=== PATIENT | male | born 1950 | race Caucasian/White ===

== ENCOUNTER 2017-05-20 18:15 | Emergency (ER) | payer MEDICAID ==
[~2017-05-20] VITALS: Ht 177.8 cm; Wt 115.7 kg
[2017-05-20] MEDS ORDERED: DOXY100C2 PO (20:01)
[2017-05-20] MEDS ORDERED: doxycycline hyclate 100mg tablet.DR PO ONE (20:05)
[2017-05-20 20:09] VITALS: BP 169/97
== END 2017-05-20 20:10 | disposition home or self-care (01) ==
LOC: ER 18:15
DX: J18.9 Pneumonia, unspecified organism (principal); I10 Essential (primary) hypertension; E11.9 Type 2 diabetes mellitus without complications; Z88.1 Allergy status to other antibiotic agents; Z88.8 Allergy status to other drugs, medicaments and biological substances
CPT/HCPCS: 71046; 99284

== ENCOUNTER 2017-06-05 19:17 | Emergency (ER) | payer MEDICARE, MEDICAID ==
[~2017-06-05] VITALS: Ht 172.7 cm; Wt 116.5 kg
[~2017-06-05 19:17] MED LIST: DOXY100C2 PO
[2017-06-05 19:33] VITALS: BP 171/124
[2017-06-05 20:07] LABS: BASOPHILS # (AUTO) 0.1 X10'3 (0-0.2); BASOPHILS % (AUTO) 0.8 % (0-1); EOSINOPHILS # (AUTO) 0.1 X10'3 (0-0.9); EOSINOPHILS % (AUTO) 2.1 % (0-6); HEMOGLOBIN 13.1 g/dl (14.0-17.9); LYMPHOCYTES # (AUTO) 1.3 X10'3 (1.1-4.8); LYMPHOCYTES % (AUTO) 19.3 % (21-51); MEAN CORPUSCULAR HEMOGLOBIN 27.9 PG (27.0-31.0); MEAN CORPUSCULAR HGB CONC 32.9 % (33.0-36.5); MEAN CORPUSCULAR VOLUME 84.9 FL (78-98); MEAN PLATELET VOLUME 9.9 FL (7.4-10.4); MONOCYTES # (AUTO) 0.4 X10'3 (0-0.9); MONOCYTES % (AUTO) 5.3 % (2-12); NEUTROPHILS # (AUTO) 4.9 X10'3 (1.8-7.7); NEUTROPHILS % (AUTO) 72.5 % (42-75); PLATELET COUNT 166 X10'3 (140-440); RED BLOOD COUNT 4.71 X10'6 (4.70-6.10); RED CELL DISTRIBUTION WIDTH 16.3 % (11.5-14.5); WHITE BLOOD COUNT 6.8 X10'3 (4.5-11.0)
[2017-06-05 20:12] LABS: INR 1.1 INR; PARTIAL THROMBOPLASTIN TIME 31 SECONDS (22-32); PROTHROMBIN TIME 11.5 SECONDS (9.0-12.0)
[2017-06-05 20:18] LABS: ALANINE AMINOTRANSFERASE 28 U/L (12-78); ALBUMIN 3.5 G/DL (3.4-5.0); ALBUMIN/GLOBULIN RATIO 0.7 (1.1-1.5); ALKALINE PHOSPHATASE 150 IU/L (46-116); ANION GAP 8 (8-16); ASPARTATE AMINO TRANSFERASE 18 U/L (10-37); BLOOD UREA NITROGEN 25 MG/DL (7-18); BUN/CREATININE RATIO 14.9 (5.4-32.0); CHLORIDE 106 MMOL/L (99-107); CREATININE 1.68 MG/DL (0.60-1.10); POTASSIUM 3.9 MMOL/L (3.5-5.1); SODIUM 145 MMOL/L (135-145); TOTAL CARBON DIOXIDE 31.1 MMOL/L (24-32); TOTAL PROTEIN 8.2 G/DL (6.4-8.2); eGFR 41 ML/MIN
[2017-06-05 20:30] LABS: GLUCOSE 181 MG/DL (70-104)
[2017-06-05] MEDS ORDERED: furosemide 10 MG/1 ML 10ml inj IV ONE (21:20)
[2017-06-05 21:46] LABS: D-DIMER 3.08 MG/L FEU (0-0.50)
== END 2017-06-05 21:33 | disposition left against medical advice (07) ==
LOC: ER 19:18
DX: R00.0 Tachycardia, unspecified (principal); R06.02 Shortness of breath; R05 Cough; N17.9 Acute kidney failure, unspecified; R60.0 Localized edema; E11.9 Type 2 diabetes mellitus without complications; I10 Essential (primary) hypertension; Z88.1 Allergy status to other antibiotic agents; Z88.8 Allergy status to other drugs, medicaments and biological substances
CPT/HCPCS: 36415; 71045; 80053; 83880; 84484; 85025; 85379; 85610; 85730; 93005; 99285

== ENCOUNTER 2017-12-06 15:01 | Inpatient (IN) | payer MEDICARE, MEDICAID ==
[~2017-12-06] VITALS: Ht 177.8 cm; Wt 118.3 kg
[2017-12-06 15:53] LABS: BASOPHILS % (AUTO) 0.2 % (0-1); EOSINOPHILS # (AUTO) 0.1 X10'3 (0-0.9); EOSINOPHILS % (AUTO) 0.8 % (0-6); LYMPHOCYTES # (AUTO) 0.7 X10'3 (1.1-4.8); LYMPHOCYTES % (AUTO) 6.2 % (21-51); MEAN CORPUSCULAR HEMOGLOBIN 28.1 PG (27.0-31.0); MEAN CORPUSCULAR HGB CONC 32.5 % (33.0-36.5); MEAN CORPUSCULAR VOLUME 86.4 FL (78-98); MEAN PLATELET VOLUME 9.4 FL (7.4-10.4); MONOCYTES # (AUTO) 0.6 X10'3 (0-0.9); MONOCYTES % (AUTO) 5.4 % (2-12); NEUTROPHILS # (AUTO) 9.9 X10'3 (1.8-7.7); NEUTROPHILS % (AUTO) 87.4 % (42-75); PLATELET COUNT 203 X10'3 (140-440); RED BLOOD COUNT 4.63 X10'6 (4.70-6.10); RED CELL DISTRIBUTION WIDTH 18.7 % (11.5-14.5); WHITE BLOOD COUNT 11.3 X10'3 (4.5-11.0)
[2017-12-06 16:07] LABS: ALANINE AMINOTRANSFERASE 20 U/L (12-78); ALBUMIN/GLOBULIN RATIO 0.6 (1.1-1.5); ALKALINE PHOSPHATASE 246 IU/L (46-116); ANION GAP 10 (8-16); ASPARTATE AMINO TRANSFERASE 26 U/L (10-37); BILIRUBIN,TOTAL 2.4 MG/DL (0.1-1.0); BLOOD UREA NITROGEN 27 MG/DL (7-18); BUN/CREATININE RATIO 16.8 (5.4-32.0); CALCIUM 8.7 MG/DL (8.5-10.1); CHLORIDE 104 MMOL/L (99-107); CREATININE 1.61 MG/DL (0.60-1.10); POTASSIUM 4.6 MMOL/L (3.5-5.1); SODIUM 141 MMOL/L (135-145); TOTAL CARBON DIOXIDE 27.4 MMOL/L (24-32); TOTAL PROTEIN 8.1 G/DL (6.4-8.2); eGFR 43 ML/MIN
[2017-12-06 16:17] LABS: GLUCOSE 136 MG/DL (70-104)
[2017-12-06 16:23] LABS: INR 1.2 INR; PARTIAL THROMBOPLASTIN TIME 33 SECONDS (22-32); PROTHROMBIN TIME 12.6 SECONDS (9.0-12.0)
[2017-12-06 16:46] LABS: PLATELET ESTIMATE NORMAL
[2017-12-06 16:47] LABS: ANISOCYTOSIS 2+
[2017-12-06 16:54] LABS: ELLIPTOCYTES FEW
[2017-12-06 16:55] LABS: SCHISTOCYTES FEW
[2017-12-06] MEDS ORDERED: normal saline 1000ML IV soln IV ONE (18:15)
[2017-12-06] MEDS ORDERED: nitroGLYCERIN 0.4mg SUBLingual tab SL PRN (18:15)
[2017-12-06] MEDS ORDERED: metoprolol tartrate 1mg/ml inj IV ONE (18:15)
[2017-12-06] MEDS ORDERED: aspirin 81mg tab.chew PO ONE (18:15)
[2017-12-06] MEDS ORDERED: vancomycin/NS 1 GM ADD-VANTAGE 250 ML IV ONE (18:20)
[2017-12-06] MEDS ORDERED: piperacillin/tazo 3.375gm/50ml 50 ML IV ONE (18:20)
[2017-12-06] MEDS ORDERED: morphine 2 MG/ML inj. syringe IV PRN ×2 (20:05)
[2017-12-06] MEDS ORDERED: ondansetron/PF 4mg/2ml inj IV PRN (20:05)
[2017-12-06] MEDS ORDERED: acetaminophen 650mg rectal suppository RC PRN (20:05)
[2017-12-06] MEDS ORDERED: diphenhydrAMINE 25mg capsule PO PRN (20:05)
[2017-12-06] MEDS ORDERED: HYDROcodone/acetaminophen 5mg/325mg tablet PO PRN (20:05)
[2017-12-06] MEDS ORDERED: magnesium hydroxide 30ml (MOM) UD suspension PO PRN (20:05)
[2017-12-06] MEDS ORDERED: diphenhydrAMINE 50 mg/ml inj IV PRN (20:05)
[2017-12-06] MEDS ORDERED: metoclopramide 5 mg/ml inj IV PRN (20:05)
[2017-12-06] MEDS ORDERED: acetaminophen 325mg tablet PO PRN ×2 (20:05)
[2017-12-06] MEDS ORDERED: HYDROcodone/acetaminophen 10/325mg tab PO PRN (20:05)
[2017-12-06] MEDS ORDERED: bisacodyl 10mg suppository rectal RC PRN (20:05)
[2017-12-06] MEDS ORDERED: mag hydrox/Alum hydrox/simeth 30ml oral suspension PO PRN (20:05)
[2017-12-06] MEDS ORDERED: heparin 10,000 units/1 ML INJ IV ONE ×2 (20:15)
[2017-12-06] MEDS: normal saline 1000ml 1,000 ML IV SCH (20:38)
[2017-12-06 20:45] LABS: HEMOGLOBIN A1C 7.2 % (4.5-6.2)
[2017-12-06 20:58] LABS: PHOSPHORUS 3.5 MG/DL (2.3-4.5)
[2017-12-06] MEDS ORDERED: temazepam 15mg capsule PO PRN (21:00)
[2017-12-06 22:51] LABS: INR 1.4 INR; PARTIAL THROMBOPLASTIN TIME 69 SECONDS (22-32); PROTHROMBIN TIME 14.3 SECONDS (9.0-12.0)
[2017-12-07] VITALS (7 sets, daily range): BP systolic 126–147; BP diastolic 82–100
[2017-12-07 03:29] LABS: BASOPHILS # (AUTO) 0.1 X10'3 (0-0.2); BASOPHILS % (AUTO) 0.6 % (0-1); EOSINOPHILS % (AUTO) 0.2 % (0-6); HEMATOCRIT 36.9 % (42.0-52.0); HEMOGLOBIN 12.1 g/dl (14.0-17.9); LYMPHOCYTES % (AUTO) 9.8 % (21-51); MEAN CORPUSCULAR HEMOGLOBIN 28.3 PG (27.0-31.0); MEAN CORPUSCULAR HGB CONC 32.8 % (33.0-36.5); MEAN CORPUSCULAR VOLUME 86.4 FL (78-98); MEAN PLATELET VOLUME 10.1 FL (7.4-10.4); MONOCYTES # (AUTO) 0.8 X10'3 (0-0.9); MONOCYTES % (AUTO) 8.1 % (2-12); NEUTROPHILS % (AUTO) 81.3 % (42-75); PLATELET COUNT 163 X10'3 (140-440); RED BLOOD COUNT 4.28 X10'6 (4.70-6.10); RED CELL DISTRIBUTION WIDTH 18.9 % (11.5-14.5); WHITE BLOOD COUNT 9.8 X10'3 (4.5-11.0)
[2017-12-07 03:38] LABS: ALANINE AMINOTRANSFERASE 20 U/L (12-78); ALBUMIN 2.6 G/DL (3.4-5.0); ALBUMIN/GLOBULIN RATIO 0.6 (1.1-1.5); ALKALINE PHOSPHATASE 198 IU/L (46-116); ANION GAP 8 (8-16); ASPARTATE AMINO TRANSFERASE 29 U/L (10-37); BILIRUBIN,TOTAL 2.3 MG/DL (0.1-1.0); BLOOD UREA NITROGEN 32 MG/DL (7-18); BUN/CREATININE RATIO 18.5 (5.4-32.0); CALCIUM 8.4 MG/DL (8.5-10.1); CHLORIDE 106 MMOL/L (99-107); CREATININE 1.73 MG/DL (0.60-1.10); POTASSIUM 4.5 MMOL/L (3.5-5.1); SODIUM 141 MMOL/L (135-145); TOTAL CARBON DIOXIDE 26.7 MMOL/L (24-32); TOTAL PROTEIN 7.1 G/DL (6.4-8.2); eGFR 40 ML/MIN
[2017-12-07 03:41] LABS: CHOL/HDL RATIO 2.9 (0.00-4.99); CHOLESTEROL 97 MG/DL (0-200); HDL CHOLESTEROL 34 MG/DL (35-60); LDL CHOLESTEROL 57 MG/DL (50-100); TRIGLYCERIDES 52 MG/DL (20-135)
[2017-12-07 03:46] LABS: GLUCOSE 73 MG/DL (70-104)
[2017-12-07 04:01] LABS: ANISOCYTOSIS 2+; ELLIPTOCYTES FEW; HYPOCHROMASIA 1+; PLATELET ESTIMATE NORMAL
[2017-12-07] MEDS ORDERED: heparin 10,000 units/1 ML INJ IV PRN (04:30)
[2017-12-07] MEDS: normal saline 1000ml 1,000 ML IV SCH ×2 (06:03→07:31)
[2017-12-07] MEDS ORDERED: MESSAGE TO PHARMACY PO ONE (06:45)
[2017-12-07] MEDS ORDERED: dextrose ORAL solution 15 GM/59 ML bottle PO PRN ×2 (06:45)
[2017-12-07] MEDS ORDERED: insulin Lispro (HumaLOG) vial - multi-dose SQ SCH (06:45)
[2017-12-07] MEDS ORDERED: dextrose 50%-water 50ml dispensing syringe IV PRN ×2 (06:45)
[2017-12-07] MEDS ORDERED: glucagon, human recombinant 1mg kit SUBCUT PRN (06:45)
[2017-12-07] MEDS: docusate sod 100mg capsule PO SCH ×2 (07:31→20:55)
[2017-12-07] MEDS ORDERED: furosemide 40mg/4ml inj IV ONE (08:45)
[2017-12-07] MEDS: carVEDilol 3.125mg tablet PO SCH ×2 (11:42→20:55)
[2017-12-07] MEDS: lisinopril 5mg tablet PO SCH (11:42)
[2017-12-07] MEDS ORDERED: LISI10TA4 PO (11:56)
[2017-12-07] MEDS ORDERED: FURO20TA4 PO (11:56)
[2017-12-07] MEDS ORDERED: LANTUS SUBCUT (11:56)
[2017-12-07] MEDS: furosemide 40mg/4ml inj IV SCH (16:51)
[2017-12-07] MEDS ORDERED: insulin glargine (Lantus) pen - multi-dose SQ SCH (21:00)
[2017-12-08] MEDS: furosemide 40mg/4ml inj IV SCH ×2 (00:43→08:10)
[2017-12-08 03:00] VITALS: BP 136/88
[2017-12-08 06:28] LABS: BASOPHILS % (AUTO) 0.6 % (0-1); EOSINOPHILS # (AUTO) 0.1 X10'3 (0-0.9); EOSINOPHILS % (AUTO) 1.4 % (0-6); HEMATOCRIT 37.4 % (42.0-52.0); HEMOGLOBIN 12.4 g/dl (14.0-17.9); LYMPHOCYTES # (AUTO) 0.9 X10'3 (1.1-4.8); LYMPHOCYTES % (AUTO) 11.5 % (21-51); MEAN CORPUSCULAR HEMOGLOBIN 28.3 PG (27.0-31.0); MEAN CORPUSCULAR HGB CONC 33.1 % (33.0-36.5); MEAN CORPUSCULAR VOLUME 85.7 FL (78-98); MEAN PLATELET VOLUME 10.1 FL (7.4-10.4); MONOCYTES # (AUTO) 0.7 X10'3 (0-0.9); MONOCYTES % (AUTO) 9.3 % (2-12); NEUTROPHILS # (AUTO) 6.2 X10'3 (1.8-7.7); NEUTROPHILS % (AUTO) 77.2 % (42-75); PLATELET COUNT 198 X10'3 (140-440); RED BLOOD COUNT 4.37 X10'6 (4.70-6.10); RED CELL DISTRIBUTION WIDTH 18.5 % (11.5-14.5)
[2017-12-08 06:31] LABS: ALANINE AMINOTRANSFERASE 28 U/L (12-78); ALBUMIN 2.6 G/DL (3.4-5.0); ALBUMIN/GLOBULIN RATIO 0.6 (1.1-1.5); ALKALINE PHOSPHATASE 185 IU/L (46-116); ANION GAP 9 (8-16); ASPARTATE AMINO TRANSFERASE 29 U/L (10-37); BILIRUBIN,TOTAL 1.7 MG/DL (0.1-1.0); BLOOD UREA NITROGEN 43 MG/DL (7-18); BUN/CREATININE RATIO 22.4 (5.4-32.0); CALCIUM 8.5 MG/DL (8.5-10.1); CHLORIDE 103 MMOL/L (99-107); CREATININE 1.92 MG/DL (0.60-1.10); POTASSIUM 4.6 MMOL/L (3.5-5.1); SODIUM 139 MMOL/L (135-145); TOTAL CARBON DIOXIDE 27.2 MMOL/L (24-32); TOTAL PROTEIN 7.2 G/DL (6.4-8.2); eGFR 35 ML/MIN
[2017-12-08 06:39] LABS: GLUCOSE 189 MG/DL (70-104)
[2017-12-08 07:00] VITALS: BP 123/83
[2017-12-08] MEDS: lisinopril 5mg tablet PO SCH (08:00)
[2017-12-08] MEDS ORDERED: carvedilol 6.25mg tablet PO SCH (08:00)
[2017-12-08] MEDS: docusate sod 100mg capsule PO SCH (08:00)
[2017-12-08] MEDS ORDERED: FURO20TA4 PO (08:52)
[2017-12-08] MEDS ORDERED: CARV6.253 PO (08:52)
[2017-12-08 11:00] VITALS: BP 125/87
== END 2017-12-08 12:19 | disposition home or self-care (01) | DRG 682 ==
LOC: ER 15:02 → ED HOLD 20:03 → EDBEDREQ 12-07 00:06 → PCU 3S 12-07 00:30
PROVIDERS: ADMIT Family Medicine; ATTEND Internal Medicine
DX: N17.9 Acute kidney failure, unspecified (principal); I50.43 Acute on chronic combined systolic (congestive) and diastolic (congestive) heart failure; I13.0 Hypertensive heart and chronic kidney disease with heart failure and stage 1 through stage 4 chronic kidney disease, or unspecified chronic kidney disease; L97.829 Non-pressure chronic ulcer of other part of left lower leg with unspecified severity; L97.819 Non-pressure chronic ulcer of other part of right lower leg with unspecified severity; J44.9 Chronic obstructive pulmonary disease, unspecified; N18.3 Chronic kidney disease, stage 3 (moderate); E11.22 Type 2 diabetes mellitus with diabetic chronic kidney disease; E11.51 Type 2 diabetes mellitus with diabetic peripheral angiopathy without gangrene; E11.65 Type 2 diabetes mellitus with hyperglycemia; L30.8 Other specified dermatitis; Z88.8 Allergy status to other drugs, medicaments and biological substances; Z79.4 Long term (current) use of insulin; Z79.899 Other long term (current) drug therapy; Z87.01 Personal history of pneumonia (recurrent)
CPT/HCPCS: 36415; 71045; 80053; 80061; 82948; 83036; 83605; 83735; 83880; 84100; 84145; 84484; 85025; 85610; 85730; 87040; 87070; 93306; 93922; 96365; 96368; 96375; 99285; A4649; A6212; A6213; A6446; A6449; J1644; J1815; J1940; J2543; J3370; J3490; J7030

== ENCOUNTER 2018-01-02 18:14 | Inpatient (IN) | payer MEDICARE, MEDICAID ==
[~2018-01-02] VITALS: Ht 175.3 cm; Wt 110.0 kg
[2018-01-02] MEDS: vancomycin/NS 1 GM ADD-VANTAGE 250 ML IV SCH (01:00)
[~2018-01-02 18:14] MED LIST changes: +CARV6.253 PO; -DOXY100C2 PO; +FURO20TA4 PO; +LANTUS SUBCUT; +LISI10TA4 PO
[2018-01-02] MEDS ORDERED: ASPI-1265 PO (20:40)
[2018-01-02] MEDS ORDERED: temazepam 15mg capsule PO PRN (21:00)
[2018-01-02] MEDS ORDERED: vancomycin/NS 1 GM ADD-VANTAGE 250 ML IV ONE (22:45)
[2018-01-02] MEDS ORDERED: NORMAL SALINE IV ONE (22:45)
[2018-01-02] MEDS ORDERED: GENTAMICIN IV ONE (22:45)
[2018-01-02] MEDS ORDERED: HYDROmorphone 1 mg/ml syringe IV PRN ×2 (23:10)
[2018-01-02] MEDS ORDERED: morphine 2 MG/ML inj. syringe IV PRN ×2 (23:10)
[2018-01-02] MEDS ORDERED: mag hydrox/Alum hydrox/simeth 30ml oral suspension PO PRN (23:10)
[2018-01-02] MEDS ORDERED: diphenhydrAMINE 50 mg/ml inj IV PRN (23:10)
[2018-01-02] MEDS ORDERED: HYDROcodone/acetaminophen 10/325mg tab PO PRN (23:10)
[2018-01-02] MEDS ORDERED: magnesium hydroxide 30ml (MOM) UD suspension PO PRN (23:10)
[2018-01-02] MEDS ORDERED: diphenhydrAMINE 25mg capsule PO PRN (23:10)
[2018-01-02] MEDS ORDERED: acetaminophen 325mg tablet PO PRN ×2 (23:10)
[2018-01-02] MEDS ORDERED: bisacodyl 10mg suppository rectal RC PRN (23:10)
[2018-01-02] MEDS ORDERED: ondansetron/PF 4mg/2ml inj IV PRN (23:10)
[2018-01-02] MEDS ORDERED: HYDROcodone/acetaminophen 5mg/325mg tablet PO PRN (23:10)
[2018-01-02] MEDS ORDERED: metoclopramide 5 mg/ml inj IV PRN (23:10)
[2018-01-02 23:12] LABS: BASOPHILS # (AUTO) 0.2 X10'3 (0-0.2); BASOPHILS % (AUTO) 1.4 % (0-1); EOSINOPHILS # (AUTO) 0.3 X10'3 (0-0.9); EOSINOPHILS % (AUTO) 2.5 % (0-6); HEMATOCRIT 39.9 % (42.0-52.0); HEMOGLOBIN 12.8 g/dl (14.0-17.9); INR 1.1 INR; LYMPHOCYTES # (AUTO) 1.3 X10'3 (1.1-4.8); LYMPHOCYTES % (AUTO) 10.3 % (21-51); MEAN CORPUSCULAR HEMOGLOBIN 27.9 PG (27.0-31.0); MEAN CORPUSCULAR HGB CONC 32.1 % (33.0-36.5); MEAN CORPUSCULAR VOLUME 86.9 FL (78-98); MEAN PLATELET VOLUME 10.1 FL (7.4-10.4); MONOCYTES # (AUTO) 0.6 X10'3 (0-0.9); MONOCYTES % (AUTO) 4.7 % (2-12); NEUTROPHILS % (AUTO) 81.1 % (42-75); PLATELET COUNT 354 X10'3 (140-440); PROTHROMBIN TIME 11.8 SECONDS (9.0-12.0); RED BLOOD COUNT 4.59 X10'6 (4.70-6.10); WHITE BLOOD COUNT 12.3 X10'3 (4.5-11.0)
[2018-01-02 23:13] LABS: PARTIAL THROMBOPLASTIN TIME 33 SECONDS (22-32)
[2018-01-02 23:14] LABS: ALANINE AMINOTRANSFERASE 21 U/L (12-78); ALBUMIN 2.2 G/DL (3.4-5.0); ALBUMIN/GLOBULIN RATIO 0.3 (1.1-1.5); ALKALINE PHOSPHATASE 355 IU/L (46-116); ANION GAP 5 (8-16); ASPARTATE AMINO TRANSFERASE 25 U/L (10-37); BILIRUBIN,TOTAL 2.3 MG/DL (0.1-1.0); BLOOD UREA NITROGEN 46 MG/DL (7-18); BUN/CREATININE RATIO 30.1 (5.4-32.0); CALCIUM 8.7 MG/DL (8.5-10.1); CHLORIDE 96 MMOL/L (99-107); CREATININE 1.53 MG/DL (0.60-1.10); POTASSIUM 4.4 MMOL/L (3.5-5.1); SODIUM 137 MMOL/L (135-145); TOTAL CARBON DIOXIDE 35.9 MMOL/L (24-32); TOTAL PROTEIN 8.7 G/DL (6.4-8.2); eGFR 46 ML/MIN
[2018-01-02] MEDS ORDERED: glucagon, human recombinant 1mg kit SUBCUT PRN (23:15)
[2018-01-02] MEDS ORDERED: dextrose ORAL solution 15 GM/59 ML bottle PO PRN ×2 (23:15)
[2018-01-02] MEDS ORDERED: MESSAGE TO PHARMACY PO ONE (23:15)
[2018-01-02] MEDS ORDERED: dextrose 50%-water 50ml dispensing syringe IV PRN ×2 (23:15)
[2018-01-02 23:17] LABS: GLUCOSE 65 MG/DL (70-104)
[2018-01-02 23:38] LABS: MAGNESIUM 2.5 MG/DL (1.5-2.4); PHOSPHORUS 3.4 MG/DL (2.3-4.5)
[2018-01-02] MEDS ORDERED: vancomycin/NS 1 GM ADD-VANTAGE 250 ML IV SCH (23:50)
[2018-01-03] MEDS ORDERED: [UNRECOGNIZED DRUG - OTHER] IV SCH ×2
[2018-01-03] MEDS ORDERED: VANCOMYCIN IV SCH ×2
[2018-01-03] MEDS ORDERED: SODIUM CHLORIDE IV SCH ×2
[2018-01-03] MEDS: vancomycin/NS 1 GM ADD-VANTAGE 250 ML IV SCH (00:44)
[2018-01-03 01:00] VITALS: BP 134/73
[2018-01-03] MEDS: clindamycin 600mg/D5W 50ml 50 ML IV SCH ×4 (03:12→23:30)
[2018-01-03 07:18] LABS: BASOPHILS % (AUTO) 0.3 % (0-1); EOSINOPHILS # (AUTO) 0.2 X10'3 (0-0.9); EOSINOPHILS % (AUTO) 1.5 % (0-6); HEMATOCRIT 36.8 % (42.0-52.0); LYMPHOCYTES # (AUTO) 1.1 X10'3 (1.1-4.8); LYMPHOCYTES % (AUTO) 9.5 % (21-51); MEAN CORPUSCULAR HEMOGLOBIN 28.1 PG (27.0-31.0); MEAN CORPUSCULAR HGB CONC 32.6 % (33.0-36.5); MEAN CORPUSCULAR VOLUME 86.4 FL (78-98); MEAN PLATELET VOLUME 9.5 FL (7.4-10.4); MONOCYTES # (AUTO) 0.5 X10'3 (0-0.9); MONOCYTES % (AUTO) 4.8 % (2-12); NEUTROPHILS # (AUTO) 9.4 X10'3 (1.8-7.7); NEUTROPHILS % (AUTO) 83.9 % (42-75); PLATELET COUNT 287 X10'3 (140-440); RED BLOOD COUNT 4.26 X10'6 (4.70-6.10); WHITE BLOOD COUNT 11.2 X10'3 (4.5-11.0)
[2018-01-03 07:44] LABS: ALANINE AMINOTRANSFERASE 15 U/L (12-78); ALBUMIN 1.8 G/DL (3.4-5.0); ALBUMIN/GLOBULIN RATIO 0.3 (1.1-1.5); ALKALINE PHOSPHATASE 299 IU/L (46-116); ANION GAP 3 (8-16); ASPARTATE AMINO TRANSFERASE 23 U/L (10-37); BILIRUBIN,TOTAL 2.3 MG/DL (0.1-1.0); BLOOD UREA NITROGEN 45 MG/DL (7-18); BUN/CREATININE RATIO 27.3 (5.4-32.0); CALCIUM 8.4 MG/DL (8.5-10.1); CHLORIDE 98 MMOL/L (99-107); CHOL/HDL RATIO 5.8 (0.00-4.99); CHOLESTEROL 87 MG/DL (0-200); CREATININE 1.65 MG/DL (0.60-1.10); HDL CHOLESTEROL 15 MG/DL (35-60); LDL CHOLESTEROL 53 MG/DL (50-100); POTASSIUM 4.5 MMOL/L (3.5-5.1); SODIUM 136 MMOL/L (135-145); TOTAL CARBON DIOXIDE 35.3 MMOL/L (24-32); TOTAL PROTEIN 7.4 G/DL (6.4-8.2); TRIGLYCERIDES 100 MG/DL (20-135); eGFR 42 ML/MIN
[2018-01-03 07:48] LABS: GLUCOSE 175 MG/DL (70-104)
[2018-01-03] MEDS ORDERED: furosemide 10 MG/1 ML 10ml inj IV SCH (08:00)
[2018-01-03] MEDS ORDERED: vancomycin/NS 1 GM ADD-VANTAGE 250 ML IV SCH (08:00)
[2018-01-03] MEDS: carvedilol 6.25mg tablet PO SCH ×2 (08:57→20:47)
[2018-01-03] MEDS: famotidine 20mg tablet PO SCH ×2 (08:58→20:00)
[2018-01-03] MEDS: lisinopril 10 MG tablet PO SCH (08:59)
[2018-01-03] MEDS: aspirin 81mg tab.chew PO SCH (09:00)
[2018-01-03] MEDS: docusate sod 100mg capsule PO SCH ×2 (09:00→20:00)
[2018-01-03 11:00] VITALS: BP 97/62
[2018-01-03] MEDS: insulin Lispro (HumaLOG) vial - multi-dose SQ SCH ×2 (13:28→19:04)
[2018-01-03 20:00] VITALS: BP 110/66
[2018-01-03] MEDS: lactobacillus rhamnosus 10,000 MMU CELLS/CAPSULE PO SCH (20:46)
[2018-01-04] VITALS: BP 118/52
[2018-01-04 07:22] LABS: BASOPHILS # (AUTO) 0.1 X10'3 (0-0.2); BASOPHILS % (AUTO) 0.8 % (0-1); EOSINOPHILS # (AUTO) 0.1 X10'3 (0-0.9); EOSINOPHILS % (AUTO) 1.2 % (0-6); HEMATOCRIT 36.9 % (42.0-52.0); LYMPHOCYTES # (AUTO) 1.2 X10'3 (1.1-4.8); LYMPHOCYTES % (AUTO) 10.7 % (21-51); MEAN CORPUSCULAR HEMOGLOBIN 28.1 PG (27.0-31.0); MEAN CORPUSCULAR HGB CONC 32.5 % (33.0-36.5); MEAN CORPUSCULAR VOLUME 86.5 FL (78-98); MEAN PLATELET VOLUME 9.3 FL (7.4-10.4); MONOCYTES # (AUTO) 0.9 X10'3 (0-0.9); MONOCYTES % (AUTO) 7.7 % (2-12); NEUTROPHILS % (AUTO) 79.6 % (42-75); PLATELET COUNT 332 X10'3 (140-440); RED BLOOD COUNT 4.27 X10'6 (4.70-6.10); WHITE BLOOD COUNT 11.3 X10'3 (4.5-11.0)
[2018-01-04 07:42] LABS: ALANINE AMINOTRANSFERASE 16 U/L (12-78); ALBUMIN/GLOBULIN RATIO 0.4 (1.1-1.5); ALKALINE PHOSPHATASE 304 IU/L (46-116); ANION GAP 4 (8-16); ASPARTATE AMINO TRANSFERASE 25 U/L (10-37); BILIRUBIN,TOTAL 1.8 MG/DL (0.1-1.0); BLOOD UREA NITROGEN 47 MG/DL (7-18); CALCIUM 8.4 MG/DL (8.5-10.1); CHLORIDE 98 MMOL/L (99-107); CREATININE 1.68 MG/DL (0.60-1.10); POTASSIUM 4.6 MMOL/L (3.5-5.1); SODIUM 136 MMOL/L (135-145); TOTAL CARBON DIOXIDE 34.3 MMOL/L (24-32); TOTAL PROTEIN 7.6 G/DL (6.4-8.2); eGFR 41 ML/MIN
[2018-01-04 07:48] LABS: GLUCOSE 71 MG/DL (70-104)
[2018-01-04] MEDS: famotidine 20mg tablet PO SCH (08:01)
[2018-01-04] MEDS: docusate sod 100mg capsule PO SCH (08:01)
[2018-01-04] MEDS: lactobacillus rhamnosus 10,000 MMU CELLS/CAPSULE PO SCH (08:01)
[2018-01-04] MEDS: carvedilol 6.25mg tablet PO SCH (08:01)
[2018-01-04] MEDS: aspirin 81mg tab.chew PO SCH (08:01)
[2018-01-04] MEDS: lisinopril 10 MG tablet PO SCH (08:03)
[2018-01-04 08:59] VITALS: BP 112/73
[2018-01-04] MEDS ORDERED: clindamycin 150mg capsule PO SCH (09:00)
[2018-01-04] MEDS ORDERED: furosemide 20MG tablet PO SCH (09:00)
[2018-01-04] MEDS ORDERED: furosemide 20MG tablet PO ONE (09:10)
[2018-01-04 11:48] VITALS: BP 120/68
[2018-01-04 13:00] VITALS: BP 120/80
[2018-01-04] MEDS ORDERED: CLE150C PO (13:07)
[2018-01-04] MEDS ORDERED: LACT1CAP26 PO (13:07)
[2018-01-04] MEDS ORDERED: piperacillin/tazo 3.375gm/50ml 50 ML IV SCH ×2 (14:00)
[2018-01-05] MEDS ORDERED: VANCOMYCIN LEVEL IV NR (03:30)
[2018-01-05] MEDS ORDERED: furosemide 20MG tablet PO SCH (08:00)
[2018-01-05] MEDS ORDERED: CLIN300C54 PO (22:12)
== END 2018-01-04 19:02 | disposition home or self-care (01) | DRG 299 ==
LOC: ER 18:15 → ED HOLD 23:08 → SUR 3N 01-03 01:06
PROVIDERS: ADMIT Family Medicine; ATTEND Family Medicine
DX: E11.52 Type 2 diabetes mellitus with diabetic peripheral angiopathy with gangrene (principal); I50.23 Acute on chronic systolic (congestive) heart failure; L03.115 Cellulitis of right lower limb; N17.9 Acute kidney failure, unspecified; I13.0 Hypertensive heart and chronic kidney disease with heart failure and stage 1 through stage 4 chronic kidney disease, or unspecified chronic kidney disease; L03.116 Cellulitis of left lower limb; E11.649 Type 2 diabetes mellitus with hypoglycemia without coma; A49.01 Methicillin susceptible Staphylococcus aureus infection, unspecified site; E11.22 Type 2 diabetes mellitus with diabetic chronic kidney disease; N18.3 Chronic kidney disease, stage 3 (moderate); Z88.1 Allergy status to other antibiotic agents; Z88.8 Allergy status to other drugs, medicaments and biological substances; Z79.899 Other long term (current) drug therapy; Z79.4 Long term (current) use of insulin; Z79.82 Long term (current) use of aspirin; Z87.01 Personal history of pneumonia (recurrent)
CPT/HCPCS: 36415; 80053; 80061; 82948; 83605; 83735; 83880; 84100; 84145; 85025; 85610; 85730; 87040; 99285; J1580; J1940; J2543; J3370; J3490; J7030

== ENCOUNTER 2018-01-11 09:04 | Day surgery (SDC) | payer MEDICARE, MEDICAID ==
[~2018-01-11 09:04] MED LIST changes: +ASPI-1265 PO; +CLIN300C54 PO; +LACT1CAP26 PO
== END 2018-01-11 13:15 | disposition home or self-care (01) ==
LOC: WOUND CARE 09:04
PROVIDERS: ATTEND Surgery
DX: E11.621 Type 2 diabetes mellitus with foot ulcer (principal); L97.412 Non-pressure chronic ulcer of right heel and midfoot with fat layer exposed; E11.622 Type 2 diabetes mellitus with other skin ulcer; I83.012 Varicose veins of right lower extremity with ulcer of calf; I83.022 Varicose veins of left lower extremity with ulcer of calf; L97.212 Non-pressure chronic ulcer of right calf with fat layer exposed; L97.222 Non-pressure chronic ulcer of left calf with fat layer exposed; L97.811 Non-pressure chronic ulcer of other part of right lower leg limited to breakdown of skin; E11.40 Type 2 diabetes mellitus with diabetic neuropathy, unspecified; E11.65 Type 2 diabetes mellitus with hyperglycemia; E11.52 Type 2 diabetes mellitus with diabetic peripheral angiopathy with gangrene; E11.22 Type 2 diabetes mellitus with diabetic chronic kidney disease; I13.0 Hypertensive heart and chronic kidney disease with heart failure and stage 1 through stage 4 chronic kidney disease, or unspecified chronic kidney disease; I50.43 Acute on chronic combined systolic (congestive) and diastolic (congestive) heart failure; N18.3 Chronic kidney disease, stage 3 (moderate); E11.649 Type 2 diabetes mellitus with hypoglycemia without coma; J44.9 Chronic obstructive pulmonary disease, unspecified; F03.90 Unspecified dementia, unspecified severity, without behavioral disturbance, psychotic disturbance, mood disturbance, and anxiety; Z79.4 Long term (current) use of insulin; Z79.82 Long term (current) use of aspirin; Z79.1 Long term (current) use of non-steroidal anti-inflammatories (NSAID); Z79.899 Other long term (current) drug therapy; Z87.01 Personal history of pneumonia (recurrent)
CPT/HCPCS: 11042; 11045; 87070; 87075; 87076; 87077; 87102; 87176; 87186; 97597; 97606; A6021; A6446; A6250

== ENCOUNTER 2018-01-15 09:31 | Day surgery (SDC) | payer MEDICARE, MEDICAID | END 2018-01-15 14:25 | disposition home or self-care (01) | LOC: WOUND CARE 09:31 | PROVIDERS: ATTEND Surgery | DX: E11.621 Type 2 diabetes mellitus with foot ulcer (principal); L97.412 Non-pressure chronic ulcer of right heel and midfoot with fat layer exposed; E11.622 Type 2 diabetes mellitus with other skin ulcer; I83.012 Varicose veins of right lower extremity with ulcer of calf; I83.022 Varicose veins of left lower extremity with ulcer of calf; L97.212 Non-pressure chronic ulcer of right calf with fat layer exposed; L97.222 Non-pressure chronic ulcer of left calf with fat layer exposed; L97.811 Non-pressure chronic ulcer of other part of right lower leg limited to breakdown of skin; E11.40 Type 2 diabetes mellitus with diabetic neuropathy, unspecified; E11.65 Type 2 diabetes mellitus with hyperglycemia; E11.52 Type 2 diabetes mellitus with diabetic peripheral angiopathy with gangrene; E11.22 Type 2 diabetes mellitus with diabetic chronic kidney disease; I13.0 Hypertensive heart and chronic kidney disease with heart failure and stage 1 through stage 4 chronic kidney disease, or unspecified chronic kidney disease; I50.43 Acute on chronic combined systolic (congestive) and diastolic (congestive) heart failure; N18.3 Chronic kidney disease, stage 3 (moderate); E11.649 Type 2 diabetes mellitus with hypoglycemia without coma; J44.9 Chronic obstructive pulmonary disease, unspecified; F03.90 Unspecified dementia, unspecified severity, without behavioral disturbance, psychotic disturbance, mood disturbance, and anxiety; Z79.4 Long term (current) use of insulin; Z79.82 Long term (current) use of aspirin; Z79.1 Long term (current) use of non-steroidal anti-inflammatories (NSAID); Z79.899 Other long term (current) drug therapy; Z87.01 Personal history of pneumonia (recurrent) | CPT/HCPCS: 11043; 11046; 36416; 82948; 93922; 93926; 97606; A6021; A6206; A6446; A4456 ==

== ENCOUNTER 2018-01-19 14:40 | Outpatient (CLI) | payer MEDICARE, MEDICAID | END 2018-01-19 23:59 | disposition home or self-care (01) | LOC: RAD 14:40 | PROVIDERS: ATTEND Surgery | DX: E11.621 Type 2 diabetes mellitus with foot ulcer (principal); L97.412 Non-pressure chronic ulcer of right heel and midfoot with fat layer exposed; E11.622 Type 2 diabetes mellitus with other skin ulcer; I83.012 Varicose veins of right lower extremity with ulcer of calf; I83.022 Varicose veins of left lower extremity with ulcer of calf; L97.212 Non-pressure chronic ulcer of right calf with fat layer exposed; L97.222 Non-pressure chronic ulcer of left calf with fat layer exposed; L97.811 Non-pressure chronic ulcer of other part of right lower leg limited to breakdown of skin; E11.40 Type 2 diabetes mellitus with diabetic neuropathy, unspecified; E11.65 Type 2 diabetes mellitus with hyperglycemia; E11.52 Type 2 diabetes mellitus with diabetic peripheral angiopathy with gangrene; E11.22 Type 2 diabetes mellitus with diabetic chronic kidney disease; I13.0 Hypertensive heart and chronic kidney disease with heart failure and stage 1 through stage 4 chronic kidney disease, or unspecified chronic kidney disease; I50.43 Acute on chronic combined systolic (congestive) and diastolic (congestive) heart failure; N18.3 Chronic kidney disease, stage 3 (moderate); E11.649 Type 2 diabetes mellitus with hypoglycemia without coma; J44.9 Chronic obstructive pulmonary disease, unspecified; F03.90 Unspecified dementia, unspecified severity, without behavioral disturbance, psychotic disturbance, mood disturbance, and anxiety; Z79.4 Long term (current) use of insulin; Z79.82 Long term (current) use of aspirin; Z79.1 Long term (current) use of non-steroidal anti-inflammatories (NSAID); Z79.899 Other long term (current) drug therapy; Z87.01 Personal history of pneumonia (recurrent) | CPT/HCPCS: 73718 ==

== ENCOUNTER 2018-01-22 09:35 | Day surgery (SDC) | payer MEDICARE, MEDICAID | END 2018-01-22 13:58 | disposition home or self-care (01) | LOC: WOUND CARE 09:35 | PROVIDERS: ATTEND Surgery | DX: E11.621 Type 2 diabetes mellitus with foot ulcer (principal); L97.412 Non-pressure chronic ulcer of right heel and midfoot with fat layer exposed; E11.622 Type 2 diabetes mellitus with other skin ulcer; I83.012 Varicose veins of right lower extremity with ulcer of calf; I83.022 Varicose veins of left lower extremity with ulcer of calf; L97.212 Non-pressure chronic ulcer of right calf with fat layer exposed; L97.222 Non-pressure chronic ulcer of left calf with fat layer exposed; L97.811 Non-pressure chronic ulcer of other part of right lower leg limited to breakdown of skin; E11.40 Type 2 diabetes mellitus with diabetic neuropathy, unspecified; E11.65 Type 2 diabetes mellitus with hyperglycemia; E11.52 Type 2 diabetes mellitus with diabetic peripheral angiopathy with gangrene; E11.22 Type 2 diabetes mellitus with diabetic chronic kidney disease; I13.0 Hypertensive heart and chronic kidney disease with heart failure and stage 1 through stage 4 chronic kidney disease, or unspecified chronic kidney disease; I50.43 Acute on chronic combined systolic (congestive) and diastolic (congestive) heart failure; N18.3 Chronic kidney disease, stage 3 (moderate); E11.649 Type 2 diabetes mellitus with hypoglycemia without coma; J44.9 Chronic obstructive pulmonary disease, unspecified; F03.90 Unspecified dementia, unspecified severity, without behavioral disturbance, psychotic disturbance, mood disturbance, and anxiety; Z79.4 Long term (current) use of insulin; Z79.82 Long term (current) use of aspirin; Z79.1 Long term (current) use of non-steroidal anti-inflammatories (NSAID); Z79.899 Other long term (current) drug therapy; Z87.01 Personal history of pneumonia (recurrent) | CPT/HCPCS: 97606; A6021; A6206; A6446 ==

== ENCOUNTER 2018-01-26 09:10 | Day surgery (SDC) | payer MEDICARE, MEDICAID ==
[2018-01-26] MEDS ORDERED: AMOX-422 PO (14:36)
== END 2018-01-26 12:25 | disposition home or self-care (01) ==
LOC: WOUND CARE 09:10
PROVIDERS: ATTEND Surgery
DX: E11.621 Type 2 diabetes mellitus with foot ulcer (principal); L97.413 Non-pressure chronic ulcer of right heel and midfoot with necrosis of muscle; E11.622 Type 2 diabetes mellitus with other skin ulcer; I83.012 Varicose veins of right lower extremity with ulcer of calf; I83.022 Varicose veins of left lower extremity with ulcer of calf; L97.212 Non-pressure chronic ulcer of right calf with fat layer exposed; L97.221 Non-pressure chronic ulcer of left calf limited to breakdown of skin; L97.811 Non-pressure chronic ulcer of other part of right lower leg limited to breakdown of skin; E11.40 Type 2 diabetes mellitus with diabetic neuropathy, unspecified; E11.65 Type 2 diabetes mellitus with hyperglycemia; E11.52 Type 2 diabetes mellitus with diabetic peripheral angiopathy with gangrene; E11.22 Type 2 diabetes mellitus with diabetic chronic kidney disease; I13.0 Hypertensive heart and chronic kidney disease with heart failure and stage 1 through stage 4 chronic kidney disease, or unspecified chronic kidney disease; I50.43 Acute on chronic combined systolic (congestive) and diastolic (congestive) heart failure; N18.3 Chronic kidney disease, stage 3 (moderate); E11.649 Type 2 diabetes mellitus with hypoglycemia without coma; J44.9 Chronic obstructive pulmonary disease, unspecified; F03.90 Unspecified dementia, unspecified severity, without behavioral disturbance, psychotic disturbance, mood disturbance, and anxiety; Z79.4 Long term (current) use of insulin; Z79.82 Long term (current) use of aspirin; Z79.1 Long term (current) use of non-steroidal anti-inflammatories (NSAID); Z79.899 Other long term (current) drug therapy; Z87.01 Personal history of pneumonia (recurrent)
CPT/HCPCS: 11043; 11046; 36415; 36416; 82948; 85651; 86140; 97605; A6223; A4456; A6021; A6446

== ENCOUNTER 2018-01-29 09:42 | Outpatient (CLI) | payer MEDICARE, MEDICAID ==
[~2018-01-29 09:42] MED LIST changes: +AMOX-422 PO
== END 2018-01-29 13:47 | disposition home or self-care (01) ==
LOC: WOUND CARE 09:42
PROVIDERS: ATTEND Surgery
DX: E11.621 Type 2 diabetes mellitus with foot ulcer (principal); L97.413 Non-pressure chronic ulcer of right heel and midfoot with necrosis of muscle; E11.622 Type 2 diabetes mellitus with other skin ulcer; I83.012 Varicose veins of right lower extremity with ulcer of calf; I83.022 Varicose veins of left lower extremity with ulcer of calf; L97.212 Non-pressure chronic ulcer of right calf with fat layer exposed; L97.221 Non-pressure chronic ulcer of left calf limited to breakdown of skin; L97.811 Non-pressure chronic ulcer of other part of right lower leg limited to breakdown of skin; E11.40 Type 2 diabetes mellitus with diabetic neuropathy, unspecified; E11.65 Type 2 diabetes mellitus with hyperglycemia; E11.52 Type 2 diabetes mellitus with diabetic peripheral angiopathy with gangrene; E11.22 Type 2 diabetes mellitus with diabetic chronic kidney disease; I13.0 Hypertensive heart and chronic kidney disease with heart failure and stage 1 through stage 4 chronic kidney disease, or unspecified chronic kidney disease; I50.43 Acute on chronic combined systolic (congestive) and diastolic (congestive) heart failure; N18.3 Chronic kidney disease, stage 3 (moderate); E11.649 Type 2 diabetes mellitus with hypoglycemia without coma; J44.9 Chronic obstructive pulmonary disease, unspecified; F03.90 Unspecified dementia, unspecified severity, without behavioral disturbance, psychotic disturbance, mood disturbance, and anxiety; Z79.4 Long term (current) use of insulin; Z79.82 Long term (current) use of aspirin; Z79.1 Long term (current) use of non-steroidal anti-inflammatories (NSAID); Z79.899 Other long term (current) drug therapy; Z87.01 Personal history of pneumonia (recurrent)
CPT/HCPCS: 36416; 82948; 93970; 97606; A6223; A4456; A6021; A6446

== ENCOUNTER 2018-02-01 09:42 | Day surgery (SDC) | payer MEDICARE, MEDICAID ==
[2018-02-01] MEDS ORDERED: ACET1TAB12 PO (15:24)
== END 2018-02-01 13:04 | disposition home or self-care (01) ==
LOC: WOUND CARE 09:42
PROVIDERS: ATTEND Surgery
DX: E11.621 Type 2 diabetes mellitus with foot ulcer (principal); L97.413 Non-pressure chronic ulcer of right heel and midfoot with necrosis of muscle; E11.622 Type 2 diabetes mellitus with other skin ulcer; I70.242 Atherosclerosis of native arteries of left leg with ulceration of calf; I83.012 Varicose veins of right lower extremity with ulcer of calf; I83.022 Varicose veins of left lower extremity with ulcer of calf; L97.212 Non-pressure chronic ulcer of right calf with fat layer exposed; L97.221 Non-pressure chronic ulcer of left calf limited to breakdown of skin; L97.811 Non-pressure chronic ulcer of other part of right lower leg limited to breakdown of skin; L97.821 Non-pressure chronic ulcer of other part of left lower leg limited to breakdown of skin; E11.40 Type 2 diabetes mellitus with diabetic neuropathy, unspecified; E11.65 Type 2 diabetes mellitus with hyperglycemia; E11.52 Type 2 diabetes mellitus with diabetic peripheral angiopathy with gangrene; E11.22 Type 2 diabetes mellitus with diabetic chronic kidney disease; I13.0 Hypertensive heart and chronic kidney disease with heart failure and stage 1 through stage 4 chronic kidney disease, or unspecified chronic kidney disease; I50.43 Acute on chronic combined systolic (congestive) and diastolic (congestive) heart failure; N18.3 Chronic kidney disease, stage 3 (moderate); E11.649 Type 2 diabetes mellitus with hypoglycemia without coma; J44.9 Chronic obstructive pulmonary disease, unspecified; F03.90 Unspecified dementia, unspecified severity, without behavioral disturbance, psychotic disturbance, mood disturbance, and anxiety; Z79.4 Long term (current) use of insulin; Z79.82 Long term (current) use of aspirin; Z79.1 Long term (current) use of non-steroidal anti-inflammatories (NSAID); Z79.899 Other long term (current) drug therapy; Z87.01 Personal history of pneumonia (recurrent)
CPT/HCPCS: 11043; 11046; 36416; 82948; 97606; A6222; A6223; A4456; A6021; A6446

== ENCOUNTER 2018-02-05 20:58 | Emergency (ER) | payer MEDICARE, MEDICAID ==
[~2018-02-05] VITALS: Ht 177.8 cm; Wt 109.7 kg
[~2018-02-05 20:58] MED LIST changes: +ACET1TAB12 PO
[2018-02-05 21:10] VITALS: BP 151/90
== END 2018-02-05 22:00 | disposition home or self-care (01) ==
LOC: ER 20:58
DX: S91.301D Unspecified open wound, right foot, subsequent encounter (principal); S91.302D Unspecified open wound, left foot, subsequent encounter; I10 Essential (primary) hypertension; E11.9 Type 2 diabetes mellitus without complications; Z88.1 Allergy status to other antibiotic agents; Z88.8 Allergy status to other drugs, medicaments and biological substances; Z79.82 Long term (current) use of aspirin; Z79.4 Long term (current) use of insulin; Z79.899 Other long term (current) drug therapy; X58.XXXD Exposure to other specified factors, subsequent encounter
CPT/HCPCS: 99281

== ENCOUNTER 2018-02-07 09:47 | Day surgery (SDC) | payer MEDICARE, MEDICAID ==
[~2018-02-07 09:47] MED LIST changes: -CLIN300C54 PO
== END 2018-02-07 11:51 | disposition home or self-care (01) ==
LOC: WOUND CARE 09:47
PROVIDERS: ATTEND Surgery
DX: E11.621 Type 2 diabetes mellitus with foot ulcer (principal); L97.413 Non-pressure chronic ulcer of right heel and midfoot with necrosis of muscle; E11.622 Type 2 diabetes mellitus with other skin ulcer; I70.242 Atherosclerosis of native arteries of left leg with ulceration of calf; I83.012 Varicose veins of right lower extremity with ulcer of calf; I83.022 Varicose veins of left lower extremity with ulcer of calf; L97.212 Non-pressure chronic ulcer of right calf with fat layer exposed; L97.221 Non-pressure chronic ulcer of left calf limited to breakdown of skin; L97.811 Non-pressure chronic ulcer of other part of right lower leg limited to breakdown of skin; L97.821 Non-pressure chronic ulcer of other part of left lower leg limited to breakdown of skin; E11.40 Type 2 diabetes mellitus with diabetic neuropathy, unspecified; E11.65 Type 2 diabetes mellitus with hyperglycemia; E11.52 Type 2 diabetes mellitus with diabetic peripheral angiopathy with gangrene; E11.22 Type 2 diabetes mellitus with diabetic chronic kidney disease; I13.0 Hypertensive heart and chronic kidney disease with heart failure and stage 1 through stage 4 chronic kidney disease, or unspecified chronic kidney disease; I50.43 Acute on chronic combined systolic (congestive) and diastolic (congestive) heart failure; N18.3 Chronic kidney disease, stage 3 (moderate); E11.649 Type 2 diabetes mellitus with hypoglycemia without coma; J44.9 Chronic obstructive pulmonary disease, unspecified; F03.90 Unspecified dementia, unspecified severity, without behavioral disturbance, psychotic disturbance, mood disturbance, and anxiety; Z79.4 Long term (current) use of insulin; Z79.82 Long term (current) use of aspirin; Z79.1 Long term (current) use of non-steroidal anti-inflammatories (NSAID); Z79.899 Other long term (current) drug therapy; Z87.01 Personal history of pneumonia (recurrent)
CPT/HCPCS: 11042; 11045; 36416; 82948; 97605; A6222; A6021; A6446

== ENCOUNTER 2018-02-15 10:00 | Day surgery (SDC) | payer MEDICARE, MEDICAID | END 2018-02-15 13:20 | disposition home or self-care (01) | LOC: WOUND CARE 10:00 | PROVIDERS: ATTEND Surgery | DX: E11.621 Type 2 diabetes mellitus with foot ulcer (principal); L97.413 Non-pressure chronic ulcer of right heel and midfoot with necrosis of muscle; E11.622 Type 2 diabetes mellitus with other skin ulcer; I70.242 Atherosclerosis of native arteries of left leg with ulceration of calf; I83.012 Varicose veins of right lower extremity with ulcer of calf; I83.022 Varicose veins of left lower extremity with ulcer of calf; L97.212 Non-pressure chronic ulcer of right calf with fat layer exposed; L97.221 Non-pressure chronic ulcer of left calf limited to breakdown of skin; L97.821 Non-pressure chronic ulcer of other part of left lower leg limited to breakdown of skin; E11.40 Type 2 diabetes mellitus with diabetic neuropathy, unspecified; E11.65 Type 2 diabetes mellitus with hyperglycemia; E11.52 Type 2 diabetes mellitus with diabetic peripheral angiopathy with gangrene; E11.22 Type 2 diabetes mellitus with diabetic chronic kidney disease; I13.0 Hypertensive heart and chronic kidney disease with heart failure and stage 1 through stage 4 chronic kidney disease, or unspecified chronic kidney disease; I50.43 Acute on chronic combined systolic (congestive) and diastolic (congestive) heart failure; N18.3 Chronic kidney disease, stage 3 (moderate); E11.649 Type 2 diabetes mellitus with hypoglycemia without coma; J44.9 Chronic obstructive pulmonary disease, unspecified; F03.90 Unspecified dementia, unspecified severity, without behavioral disturbance, psychotic disturbance, mood disturbance, and anxiety; Z79.4 Long term (current) use of insulin; Z79.82 Long term (current) use of aspirin; Z79.1 Long term (current) use of non-steroidal anti-inflammatories (NSAID); Z79.899 Other long term (current) drug therapy; Z87.01 Personal history of pneumonia (recurrent) | CPT/HCPCS: 11046; 29581; 36416; 82948; 97606; A6021; A6206; A6441 ==

== ENCOUNTER 2018-03-05 09:44 | Day surgery (SDC) | payer MEDICARE, MEDICAID ==
[2018-03-06] MEDS ORDERED: CARV6.253 PO (12:22)
[2018-03-06] MEDS ORDERED: FURO40TA4 PO (12:23)
== END 2018-03-05 13:32 | disposition home or self-care (01) ==
LOC: WOUND CARE 09:44
PROVIDERS: ATTEND Surgery
DX: E11.621 Type 2 diabetes mellitus with foot ulcer (principal); L97.413 Non-pressure chronic ulcer of right heel and midfoot with necrosis of muscle; E11.622 Type 2 diabetes mellitus with other skin ulcer; I70.242 Atherosclerosis of native arteries of left leg with ulceration of calf; I83.012 Varicose veins of right lower extremity with ulcer of calf; I83.022 Varicose veins of left lower extremity with ulcer of calf; L97.212 Non-pressure chronic ulcer of right calf with fat layer exposed; L97.221 Non-pressure chronic ulcer of left calf limited to breakdown of skin; L97.821 Non-pressure chronic ulcer of other part of left lower leg limited to breakdown of skin; E11.40 Type 2 diabetes mellitus with diabetic neuropathy, unspecified; E11.65 Type 2 diabetes mellitus with hyperglycemia; E11.52 Type 2 diabetes mellitus with diabetic peripheral angiopathy with gangrene; E11.22 Type 2 diabetes mellitus with diabetic chronic kidney disease; I13.0 Hypertensive heart and chronic kidney disease with heart failure and stage 1 through stage 4 chronic kidney disease, or unspecified chronic kidney disease; I50.43 Acute on chronic combined systolic (congestive) and diastolic (congestive) heart failure; N18.3 Chronic kidney disease, stage 3 (moderate); E11.649 Type 2 diabetes mellitus with hypoglycemia without coma; J44.9 Chronic obstructive pulmonary disease, unspecified; F03.90 Unspecified dementia, unspecified severity, without behavioral disturbance, psychotic disturbance, mood disturbance, and anxiety; Z79.4 Long term (current) use of insulin; Z79.82 Long term (current) use of aspirin; Z79.1 Long term (current) use of non-steroidal anti-inflammatories (NSAID); Z79.899 Other long term (current) drug therapy; Z87.01 Personal history of pneumonia (recurrent)
CPT/HCPCS: 11044; 11047; 97597; 97598; 97605; A6223; A6021; A6441

== ENCOUNTER 2018-03-06 10:05 | Day surgery (SDC) | payer MEDICARE, MEDICAID ==
[2018-03-05 14:31] LABS: BASOPHILS % (AUTO) 0.4 % (0-1); EOSINOPHILS # (AUTO) 0.1 X10'3 (0-0.9); EOSINOPHILS % (AUTO) 2.2 % (0-6); HEMATOCRIT 34.6 % (42.0-52.0); HEMOGLOBIN 11.1 g/dl (14.0-17.9); LYMPHOCYTES # (AUTO) 0.9 X10'3 (1.1-4.8); LYMPHOCYTES % (AUTO) 13.7 % (21-51); MEAN CORPUSCULAR HEMOGLOBIN 28.7 PG (27.0-31.0); MEAN CORPUSCULAR HGB CONC 32.1 % (33.0-36.5); MEAN CORPUSCULAR VOLUME 89.4 FL (78-98); MEAN PLATELET VOLUME 8.5 FL (7.4-10.4); MONOCYTES # (AUTO) 0.4 X10'3 (0-0.9); NEUTROPHILS # (AUTO) 5.1 X10'3 (1.8-7.7); NEUTROPHILS % (AUTO) 77.7 % (42-75); PLATELET COUNT 245 X10'3 (140-440); RED BLOOD COUNT 3.87 X10'6 (4.70-6.10); RED CELL DISTRIBUTION WIDTH 19.3 % (11.5-14.5); WHITE BLOOD COUNT 6.6 X10'3 (4.5-11.0)
[2018-03-05 14:40] LABS: ALBUMIN 2.7 G/DL (3.4-5.0); ANION GAP 7 (8-16); BLOOD UREA NITROGEN 26 MG/DL (7-18); BUN/CREATININE RATIO 17.6 (5.4-32.0); CALCIUM 8.9 MG/DL (8.5-10.1); CHLORIDE 105 MMOL/L (99-107); CREATININE 1.48 MG/DL (0.60-1.10); POTASSIUM 4.7 MMOL/L (3.5-5.1); SODIUM 140 MMOL/L (135-145); TOTAL CARBON DIOXIDE 27.9 MMOL/L (24-32); eGFR 48 ML/MIN
[2018-03-05 14:47] LABS: GLUCOSE 209 MG/DL (70-104)
[2018-03-05 14:54] LABS: INR 1.2 INR; PARTIAL THROMBOPLASTIN TIME 32 SECONDS (22-32); PROTHROMBIN TIME 12.1 SECONDS (9.0-12.0)
[2018-03-06] VITALS (12 sets, daily range): BP systolic 128–161; BP diastolic 77–96
[~2018-03-06] VITALS: Ht 177.8 cm; Wt 110.8 kg
[2018-03-06] MEDS ORDERED: acetylcysteine 200 MG/ml 4ml vial PO PRN (10:44)
[2018-03-06] MEDS ORDERED: sod bicarbonate 150mEq in D5W 1,150 ML IV ONE (10:45)
[2018-03-06] MEDS ORDERED: diphenhydrAMINE 25mg capsule PO PRN (10:45)
[2018-03-06] MEDS ORDERED: LORazepam 0.5 MG tablet PO PRN (10:45)
[2018-03-06] MEDS ORDERED: nitroGLYCERIN-Tridil 50MG/D5W 250 ML IV ONE (12:13)
[2018-03-06] MEDS ORDERED: LIDOcaine 1% (10mg/ml)w/preservative injection 20ml MDV ONE (12:13)
[2018-03-06] MEDS ORDERED: heparin 1,000unit/ml 10ml vial 10 ML ONE (12:13)
[2018-03-06] MEDS ORDERED: iohexol 350 MG/ML 50ML vial IV ONE (12:14)
[2018-03-06] MEDS ORDERED: iohexol 350 MG/1 ML 200ml bottle ONE (12:14)
[2018-03-06] MEDS ORDERED: verapamil 2.5 mg/ml inj IV ONE (12:16)
[2018-03-06] MEDS ORDERED: CARV6.253 PO (12:22)
[2018-03-06] MEDS ORDERED: FURO40TA4 PO (12:23)
[2018-03-06] MEDS ORDERED: fentaNYL/PF 50MCG/1 ML 2ML syringe ONE (12:42)
[2018-03-06] MEDS ORDERED: midazolam 2 mg/2 ml injection ONE (12:42)
[2018-03-06 13:41] LABS: ISTAT Hct MIX 29 %PCV (42-52); ISTAT O2 SATURATION MIX VENOUS 62 % (60-80); ISTAT SOURCE MIX
[2018-03-06 13:41] LABS: ISTAT HGB ART 9.9 g/dl (14.0-18.0); ISTAT Hct ART 29 %PCV (42-52); ISTAT O2 SATURATION ARTERIAL 99 % (95-98); ISTAT SOURCE ART
[2018-03-06] MEDS ORDERED: furosemide 40mg/4ml inj IV ONE (14:20)
== END 2018-03-06 19:55 | disposition home or self-care (01) ==
LOC: SSTAY O 10:05
PROVIDERS: ATTEND Internal Medicine Cardiovascular Disease
DX: I25.10 Atherosclerotic heart disease of native coronary artery without angina pectoris (principal); I13.0 Hypertensive heart and chronic kidney disease with heart failure and stage 1 through stage 4 chronic kidney disease, or unspecified chronic kidney disease; E11.22 Type 2 diabetes mellitus with diabetic chronic kidney disease; N18.9 Chronic kidney disease, unspecified; I50.22 Chronic systolic (congestive) heart failure; E78.5 Hyperlipidemia, unspecified; I25.5 Ischemic cardiomyopathy; H91.8X3 Other specified hearing loss, bilateral; E66.9 Obesity, unspecified; Z79.82 Long term (current) use of aspirin; Z79.2 Long term (current) use of antibiotics; Z87.01 Personal history of pneumonia (recurrent); Z86.79 Personal history of other diseases of the circulatory system; Z88.1 Allergy status to other antibiotic agents; Z87.891 Personal history of nicotine dependence; Z68.35 Body mass index [BMI] 35.0-35.9, adult; Z79.4 Long term (current) use of insulin; Z79.891 Long term (current) use of opiate analgesic; Z90.49 Acquired absence of other specified parts of digestive tract; Z98.890 Other specified postprocedural states; Z88.8 Allergy status to other drugs, medicaments and biological substances; Z79.899 Other long term (current) drug therapy; Z84.89 Family history of other specified conditions
CPT/HCPCS: 36415; 80048; 82803; 85014; 85025; 85347; 85610; 85730; 93005; 93460; 99152; 99153; J1644; J1940; J2001; J2250; J3010; Q0163; Q9967; C1769; J3490

== ENCOUNTER 2018-03-14 09:30 | Day surgery (SDC) | payer MEDICARE, MEDICAID ==
[~2018-03-14 09:30] MED LIST changes: -ASPI-1265 PO; -FURO20TA4 PO; +FURO40TA4 PO; -LACT1CAP26 PO
== END 2018-03-14 13:10 | disposition home or self-care (01) ==
LOC: WOUND CARE 09:30
PROVIDERS: ATTEND Surgery
DX: E11.621 Type 2 diabetes mellitus with foot ulcer (principal); L97.413 Non-pressure chronic ulcer of right heel and midfoot with necrosis of muscle; E11.622 Type 2 diabetes mellitus with other skin ulcer; I70.242 Atherosclerosis of native arteries of left leg with ulceration of calf; I83.012 Varicose veins of right lower extremity with ulcer of calf; I83.022 Varicose veins of left lower extremity with ulcer of calf; L97.212 Non-pressure chronic ulcer of right calf with fat layer exposed; L97.221 Non-pressure chronic ulcer of left calf limited to breakdown of skin; L97.821 Non-pressure chronic ulcer of other part of left lower leg limited to breakdown of skin; E11.40 Type 2 diabetes mellitus with diabetic neuropathy, unspecified; E11.65 Type 2 diabetes mellitus with hyperglycemia; E11.52 Type 2 diabetes mellitus with diabetic peripheral angiopathy with gangrene; E11.22 Type 2 diabetes mellitus with diabetic chronic kidney disease; I13.0 Hypertensive heart and chronic kidney disease with heart failure and stage 1 through stage 4 chronic kidney disease, or unspecified chronic kidney disease; E11.649 Type 2 diabetes mellitus with hypoglycemia without coma; J44.9 Chronic obstructive pulmonary disease, unspecified; F03.90 Unspecified dementia, unspecified severity, without behavioral disturbance, psychotic disturbance, mood disturbance, and anxiety; Z79.4 Long term (current) use of insulin; Z79.82 Long term (current) use of aspirin; Z79.1 Long term (current) use of non-steroidal anti-inflammatories (NSAID); Z79.899 Other long term (current) drug therapy; Z87.01 Personal history of pneumonia (recurrent)
CPT/HCPCS: 11045; 36416; 82948; 97597; 97598; 97605; A4456; A6021; A6206; A6441

== ENCOUNTER 2018-03-22 09:23 | Day surgery (SDC) | payer MEDICARE, MEDICAID ==
[2018-03-22] MEDS ORDERED: LIDOcaine 2% 5ml jelly MM ONE (12:25)
--- NOTE | 2018-03-22 12:30 | NUR ---
Patient arrived safely into [facility] via wheelchair. Patient was admitted to outpatient wound care for physician visit with Oscar Arroyo MD. Dressings and wound vac removed, wounds cleansed and lidocaine applied per order. Patient assessed for changes in conditions, medications and medical history. [id number] Dr. Arroyo at bedside accompanied by RN. Wound assessed, time out performed by MD/RN. Wound debrided as detailed in the physician progress/procedure note. Plan of care discussed with patient. Dressings placed per MD orders. Patient instructed on the signs and symptoms of infection and to call the Wound Center if any occur or to go to the ED if we are closed: Increased pain in wound Increase in drainage from the wound Redness in the skin surrounding the wound Bleeding from the wound Temperature of 101 or greater Patient instructed that elevated blood sugars delay healing of the wound and can cause further complications including but not limited to amputation of toes or feet. Pt instructed that they should not be disconnected from suction for more than 2 hours at a time. If they are not able to get the suction back on they need to remove the dressing and take all of the foam out of the wound, place hydrogel gauze on/in the wound, and change the dressing daily until someone can replace the dressing. Pt instructed to call the Wound Center or their Home Health Agency immediately if they notice a change in the color or amount of the fluid in the canister, their wound looks more red than usual or has a foul smell, the skin around their wound looks reddened or irritated, the dressing feels or appears loose, they experience pain or the alarm will not turn off. Pt instructed to call 911 or go to the ED if their canister fills rapidly with blood. Patient instructed that the weight of their body puts a large amount of pressure on their wounds. This pressure keeps the new tissue from growing and inhibits new blood vessels from forming. Explained that, if they continue to bear weight on a body part that has a wound, the time it takes to heal the wound increases, the wound may get worse or the wound may not heal at all. Patient verbalized understanding of all discharge instructions and plan of care and ambulated independently out to [facility] in stable condition with no sign or symptom of distress at time of discharge. Addendum: 03/22/18 at 1233 by Mayra Gibbs RN Amended: Links added.
[2018-03-22] MEDS ORDERED: ASPI81TA30 PO (13:47)
[2018-03-22] MEDS ORDERED: ISOS30TA6 PO (13:47)
== END 2018-03-22 12:05 | disposition home or self-care (01) ==
LOC: WOUND CARE 09:23
PROVIDERS: ATTEND Surgery
DX: E11.621 Type 2 diabetes mellitus with foot ulcer (principal); L97.413 Non-pressure chronic ulcer of right heel and midfoot with necrosis of muscle; E11.622 Type 2 diabetes mellitus with other skin ulcer; I70.242 Atherosclerosis of native arteries of left leg with ulceration of calf; I83.012 Varicose veins of right lower extremity with ulcer of calf; I83.022 Varicose veins of left lower extremity with ulcer of calf; L97.212 Non-pressure chronic ulcer of right calf with fat layer exposed; L97.221 Non-pressure chronic ulcer of left calf limited to breakdown of skin; L97.821 Non-pressure chronic ulcer of other part of left lower leg limited to breakdown of skin; E11.40 Type 2 diabetes mellitus with diabetic neuropathy, unspecified; E11.65 Type 2 diabetes mellitus with hyperglycemia; E11.52 Type 2 diabetes mellitus with diabetic peripheral angiopathy with gangrene; E11.22 Type 2 diabetes mellitus with diabetic chronic kidney disease; I13.0 Hypertensive heart and chronic kidney disease with heart failure and stage 1 through stage 4 chronic kidney disease, or unspecified chronic kidney disease; I50.43 Acute on chronic combined systolic (congestive) and diastolic (congestive) heart failure; N18.3 Chronic kidney disease, stage 3 (moderate); E11.649 Type 2 diabetes mellitus with hypoglycemia without coma; J44.9 Chronic obstructive pulmonary disease, unspecified; I25.10 Atherosclerotic heart disease of native coronary artery without angina pectoris; E78.5 Hyperlipidemia, unspecified; I25.5 Ischemic cardiomyopathy; E66.9 Obesity, unspecified; F03.90 Unspecified dementia, unspecified severity, without behavioral disturbance, psychotic disturbance, mood disturbance, and anxiety; Z68.35 Body mass index [BMI] 35.0-35.9, adult; Z90.49 Acquired absence of other specified parts of digestive tract; Z79.2 Long term (current) use of antibiotics; Z79.891 Long term (current) use of opiate analgesic; Z79.4 Long term (current) use of insulin; Z79.82 Long term (current) use of aspirin; Z79.1 Long term (current) use of non-steroidal anti-inflammatories (NSAID); Z79.899 Other long term (current) drug therapy; Z87.01 Personal history of pneumonia (recurrent); Z87.891 Personal history of nicotine dependence; Z86.79 Personal history of other diseases of the circulatory system
CPT/HCPCS: 36416; 82948; 94010; 97605

== ENCOUNTER 2018-03-22 12:56 | Outpatient (CLI) | payer MEDICARE, MEDICAID ==
[~2018-03-22] VITALS: Ht 177.8 cm; Wt 104.3 kg
[2018-03-22] MEDS ORDERED: ISOS30TA6 PO (13:47)
[2018-03-22] MEDS ORDERED: ASPI81TA30 PO (13:47)
[2018-03-22 14:21] LABS: ABG BASE EXCESS -0.8 mmol/L (-2.0-3.0); ABG HCO3 22.7 mmol/L (22.0-26.0); ABG PCO2 (T) 33.5 mmHg (35.0-48.0); ABG PH (T) 7.448 (7.350-7.450); ABG PO2 (T) 88.9 mmHg (83-108); ALLEN'S TEST Positive; FCOHb 0.1 % (0.5-1.5); FMetHb 0.1 % (0.3-1.12); FO2Hb 96.8 % (94-100); TOTAL HEMOGLOBIN 11.8 G/dl (14.0-18.0)
[2018-03-22 15:31] LABS: BASOPHILS % (AUTO) 0.2 % (0-1); EOSINOPHILS # (AUTO) 0.1 X10'3 (0-0.9); EOSINOPHILS % (AUTO) 1.7 % (0-6); LYMPHOCYTES # (AUTO) 0.8 X10'3 (1.1-4.8); LYMPHOCYTES % (AUTO) 13.2 % (21-51); MEAN CORPUSCULAR HEMOGLOBIN 28.8 PG (27.0-31.0); MEAN CORPUSCULAR VOLUME 89.9 FL (78-98); MEAN PLATELET VOLUME 9.1 FL (7.4-10.4); MONOCYTES # (AUTO) 0.4 X10'3 (0-0.9); MONOCYTES % (AUTO) 5.6 % (2-12); NEUTROPHILS # (AUTO) 5.1 X10'3 (1.8-7.7); NEUTROPHILS % (AUTO) 79.3 % (42-75); PRE OP HEMATOCRIT 36.1 % (42.0-52.0); PRE OP HEMOGLOBIN 11.6 g/dL (14.0-17.9); PRE OP PLATELET COUNT 294 X10'3 (140-440); RED BLOOD COUNT 4.01 X10'6 (4.70-6.10); RED CELL DISTRIBUTION WIDTH 16.3 % (11.5-14.5)
[2018-03-22 15:42] LABS: CLARITY,URINE SLIGHTLY CLOUDY (Clear); COLOR,URINE YELLOW (Yellow); GLUCOSE, URINE 250 mg/dl (Neg); KETONES,URINE TRACE mg/dl (Neg); LEUKOCYTE ESTERASE ,URINE NEGATIVE (Neg); NITRITES, URINE NEGATIVE (Neg); OCCULT BLOOD,URINE TRACE-INTACT (Neg); PROTEIN,URINE 100 mg/dl (Neg)
[2018-03-22 15:43] LABS: UA COLLECTION TYPE CLN CATCH MIDSTREAM
[2018-03-22 15:51] LABS: ALBUMIN 2.8 G/DL (3.4-5.0); ALBUMIN/GLOBULIN RATIO 0.6 (1.1-1.5); ALKALINE PHOSPHATASE 170 IU/L (46-116); BLOOD UREA NITROGEN 13 MG/DL (7-18); BUN/CREATININE RATIO 11.4 (5.4-32.0); CALCIUM 8.6 MG/DL (8.5-10.1); CHLORIDE 106 MMOL/L (99-107); CREATININE 1.14 MG/DL (0.60-1.10); PRE OP ALT 17 U/L (30-65); PRE OP ANION GAP 7 (8-16); PRE OP AST 17 U/L (10-37); PRE OP BILIRUB, TOTAL 1.2 MG/DL (0.0-1.0); PRE OP SODIUM 143 MMOL/L (135-145); TOTAL CARBON DIOXIDE 29.6 MMOL/L (24-32); TOTAL PROTEIN 7.7 G/DL (6.4-8.2); eGFR 64 ML/MIN
[2018-03-22 15:52] LABS: PRE OP INR 1.2 INR
[2018-03-22 15:57] LABS: SQUAMOUS EPITHELIAL CELL,UR FEW /LPF (FEW)
[2018-03-22 15:58] LABS: BACTERIA,URINE FEW /HPF (Neg); RBC,URINE 0-2 /HPF (0-2); WBC,URINE 0-4 /HPF (0-4)
[2018-03-22 16:05] LABS: PRE OP GLUCOSE 207 MG/DL (70-104)
[2018-03-22 16:40] LABS: HEMOGLOBIN A1C 7.9 % (4.5-6.2)
[2018-03-25] MEDS ORDERED: insulin Lispro (HumaLOG) vial - multi-dose SQ PRN (12:05)
[2018-03-25] MEDS ORDERED: dextrose 50%-water 50ml dispensing syringe IV PRN ×2 (12:05)
[2018-03-26] MEDS ORDERED: ringers solution, lacted 1,000 ML IV SCH (05:00)
[2018-03-26] MEDS ORDERED: metoprolol tartrate 12.5mg (1/2 tablet) PO ONE (05:30)
[2018-03-26] MEDS ORDERED: LORazepam 2 mg/ml vial IV PRN (05:30)
[2018-03-26] MEDS ORDERED: insulin regular, human inj. 100 UNITS in normal saline 100ml IV IV SCH ×2 (05:30)
[2018-03-26] MEDS ORDERED: vancomycin inj 1,500 MG in normal saline 300ml IV soln IV ONE (05:30)
[2018-03-26] MEDS ORDERED: famotidine 20mg tablet PO ONE (05:30)
[2018-03-26] MEDS ORDERED: mupirocin 2% nasal ointment 1gm UD NS SCH (08:00)
== END 2018-03-22 23:59 | disposition home or self-care (01) ==
LOC: PRE-OP 12:56 → EDSTATUS 03-26 07:30
PROVIDERS: ATTEND Thoracic Surgery (Cardiothoracic Vascular Surgery)
DX: Z01.818 Encounter for other preprocedural examination (principal); R94.31 Abnormal electrocardiogram [ECG] [EKG]; R06.09 Other forms of dyspnea; J90 Pleural effusion, not elsewhere classified; I65.23 Occlusion and stenosis of bilateral carotid arteries; I11.0 Hypertensive heart disease with heart failure; I50.9 Heart failure, unspecified; F17.210 Nicotine dependence, cigarettes, uncomplicated; E11.9 Type 2 diabetes mellitus without complications; Z79.82 Long term (current) use of aspirin
CPT/HCPCS: 36415; 36600; 71046; 80053; 81001; 82803; 83036; 85018; 85025; 85610; 85730; 86885; 86900; 86901; 86920; 87070; 93005; 93880; 93970

== ENCOUNTER 2018-03-27 09:35 | Day surgery (SDC) | payer MEDICARE, MEDICAID ==
[~2018-03-27 09:35] MED LIST changes: -ACET1TAB12 PO; +ASPI81TA30 PO; -CARV6.253 PO; +ISOS30TA6 PO
--- NOTE | 2018-03-27 13:04 | NUR ---
Patient arrived via wheelchair from [facility] and was admitted to outpatient wound care for physician visit with Oscar Arroyo MD. Dressing removed, wound cleansed. Patient assessed for changes in conditions, medications and medical history. 1014 - blood glucose 169. Patient instructed that elevated blood sugars delay healing of the wound and can cause further complications including but not limited to amputation of toes or feet. 1030 - Dr. Arroyo at bedside accompanied by RN. Wound assessed, time out performed by MD/RN. Wound debrided and procedure performed as detailed in the physician progress/procedure note. Plan of care discussed with patient. Dressings placed per MD orders. Pt instructed that they should not be disconnected from suction for more than 2 hours at a time. If they are not able to get the suction back on they need to remove the dressing and take all of the foam out of the wound, place hydrogel gauze on/in the wound, and change the dressing daily until someone can replace the dressing. Pt instructed to call the Wound Center or their Home Health Agency immediately if they notice a change in the color or amount of the fluid in the canister, their wound looks more red than usual or has a foul smell, the skin around their wound looks reddened or irritated, the dressing feels or appears loose, they experience pain or the alarm will not turn off. Pt instructed to call 911 or go to the ED if their canister fills rapidly with blood. Pt instructed to elevate legs at least 30 minutes 3 times a day or 10 minutes every 4 hours, also instructed check their toes. If they become purplish or blue, cool to the touch, numb or tingly, use a pair of scissors and carefully cut off the dressing. Call the Wound Center for an appointment to have the dressing reapplied. Pt instructed that decreased swelling in the legs and the potential for drainage from the wound may require them to have to schedule visits twice weekly, progressing to weekly as the swelling decreases in their legs. Pt instructed that if dressings become loose, wrinkled or falls down and if they are experiencing any pain or discomfort under their dressing cut the dressing off and call the Wound Center to have it reapplied. Pt instructed that the wrap needs to be kept dry. They may bath at a sink or there are devices designed to keep dressings dry these are available at most drug stores. If they choose to shower with a plastic bag taped over the wrap. Be sure to having another person available for assistance or placing towels on the floor of the shower or tub to eliminate the slick surface can reduce the risk of falls. Patient instructed on the signs and symptoms of infection and to call the Wound Center if any occur or to go to the ED if we are closed: Increased pain in wound Increase in drainage from the wound Redness in the skin surrounding the wound Bleeding from the wound Temperature of 101 or greater Patient instructed that the weight of their body puts a large amount of pressure on their wounds. This pressure keeps the new tissue from growing and inhibits new blood vessels from forming. Explained that, if they continue to bear weight on a body part that has a wound, the time it takes to heal the wound increases, the wound may get worse or the wound may not heal at all. Patient verbalized understanding of all discharge instructions and plan of care and exited via wheelchair out to lobby in stable condition with no sign or symptom of distress at time of discharge.
== END 2018-03-27 12:47 | disposition home or self-care (01) ==
LOC: WOUND CARE 09:35
PROVIDERS: ATTEND Surgery
DX: E11.621 Type 2 diabetes mellitus with foot ulcer (principal); L97.413 Non-pressure chronic ulcer of right heel and midfoot with necrosis of muscle; E11.622 Type 2 diabetes mellitus with other skin ulcer; I70.242 Atherosclerosis of native arteries of left leg with ulceration of calf; I83.022 Varicose veins of left lower extremity with ulcer of calf; L97.221 Non-pressure chronic ulcer of left calf limited to breakdown of skin; L97.821 Non-pressure chronic ulcer of other part of left lower leg limited to breakdown of skin; E11.40 Type 2 diabetes mellitus with diabetic neuropathy, unspecified; E11.65 Type 2 diabetes mellitus with hyperglycemia; E11.52 Type 2 diabetes mellitus with diabetic peripheral angiopathy with gangrene; E11.22 Type 2 diabetes mellitus with diabetic chronic kidney disease; I13.0 Hypertensive heart and chronic kidney disease with heart failure and stage 1 through stage 4 chronic kidney disease, or unspecified chronic kidney disease; I50.43 Acute on chronic combined systolic (congestive) and diastolic (congestive) heart failure; N18.3 Chronic kidney disease, stage 3 (moderate); E11.649 Type 2 diabetes mellitus with hypoglycemia without coma; J44.9 Chronic obstructive pulmonary disease, unspecified; I25.10 Atherosclerotic heart disease of native coronary artery without angina pectoris; E78.5 Hyperlipidemia, unspecified; I25.5 Ischemic cardiomyopathy; E66.9 Obesity, unspecified; F03.90 Unspecified dementia, unspecified severity, without behavioral disturbance, psychotic disturbance, mood disturbance, and anxiety; Z68.35 Body mass index [BMI] 35.0-35.9, adult; Z90.49 Acquired absence of other specified parts of digestive tract; Z79.2 Long term (current) use of antibiotics; Z79.891 Long term (current) use of opiate analgesic; Z79.4 Long term (current) use of insulin; Z79.82 Long term (current) use of aspirin; Z79.1 Long term (current) use of non-steroidal anti-inflammatories (NSAID); Z79.899 Other long term (current) drug therapy; Z87.01 Personal history of pneumonia (recurrent); Z87.891 Personal history of nicotine dependence; Z86.79 Personal history of other diseases of the circulatory system
CPT/HCPCS: 15275; 15276; 36416; 82948; A6222; Q4106; A4456; A6021; A6206; A6441; A6446

== ENCOUNTER 2018-04-03 09:55 | Outpatient (CLI) | payer MEDICARE, MEDICAID ==
[2018-04-03] MEDS ORDERED: LIDOcaine 2% 5ml jelly MM ONE (13:20)
--- NOTE | 2018-04-03 13:21 | NUR ---
Patient arrived safely from [facility] via wheelchair. Patient admitted to outpatient wound care for physician visit. Dressings and wound vac removed, wound cleansed and lidocaine applied per order. Patient assessed for changes in conditions, medications and medical history. Dr. Arroyo at bedside accompanied by RN. Wound assessed and no debridement was done. Plan of care discussed with patient. Dressings placed per MD orders. Patient instructed on the signs and symptoms of infection and to call the Wound Center if any occur or to go to the ED if we are closed: Increased pain in wound Increase in drainage from the wound Redness in the skin surrounding the wound Bleeding from the wound Temperature of 101 or greater Patient instructed that elevated blood sugars delay healing of the wound and can cause further complications including but not limited to amputation of toes or feet. Pt instructed that they should not be disconnected from suction for more than 2 hours at a time. If they are not able to get the suction back on they need to remove the dressing and take all of the foam out of the wound, place hydrogel gauze on/in the wound, and change the dressing daily until someone can replace the dressing. Pt instructed to call the Wound Center or their Home Health Agency immediately if they notice a change in the color or amount of the fluid in the canister, their wound looks more red than usual or has a foul smell, the skin around their wound looks reddened or irritated, the dressing feels or appears loose, they experience pain or the alarm will not turn off. Pt instructed to call 911 or go to the ED if their canister fills rapidly with blood. Patient verbalized understanding of all discharge instructions and plan of care and ambulated independently out to [facility] in stable condition with no sign or symptom of distress at time of discharge Addendum: 04/03/18 at 1326 by Mayra Gibbs RN Amended: Links added.
== END 2018-04-03 13:20 | disposition home or self-care (01) ==
LOC: WOUND CARE 09:55 → EDSTATUS 10:00 → WOUND CARE 13:20
PROVIDERS: ATTEND Surgery
DX: E11.621 Type 2 diabetes mellitus with foot ulcer (principal); L97.413 Non-pressure chronic ulcer of right heel and midfoot with necrosis of muscle; E11.622 Type 2 diabetes mellitus with other skin ulcer; I70.242 Atherosclerosis of native arteries of left leg with ulceration of calf; I83.022 Varicose veins of left lower extremity with ulcer of calf; L97.221 Non-pressure chronic ulcer of left calf limited to breakdown of skin; L97.821 Non-pressure chronic ulcer of other part of left lower leg limited to breakdown of skin; E11.40 Type 2 diabetes mellitus with diabetic neuropathy, unspecified; E11.65 Type 2 diabetes mellitus with hyperglycemia; E11.52 Type 2 diabetes mellitus with diabetic peripheral angiopathy with gangrene; E11.22 Type 2 diabetes mellitus with diabetic chronic kidney disease; I13.0 Hypertensive heart and chronic kidney disease with heart failure and stage 1 through stage 4 chronic kidney disease, or unspecified chronic kidney disease; I50.43 Acute on chronic combined systolic (congestive) and diastolic (congestive) heart failure; N18.3 Chronic kidney disease, stage 3 (moderate); E11.649 Type 2 diabetes mellitus with hypoglycemia without coma; J44.9 Chronic obstructive pulmonary disease, unspecified; I25.10 Atherosclerotic heart disease of native coronary artery without angina pectoris; E78.5 Hyperlipidemia, unspecified; I25.5 Ischemic cardiomyopathy; E66.9 Obesity, unspecified; F03.90 Unspecified dementia, unspecified severity, without behavioral disturbance, psychotic disturbance, mood disturbance, and anxiety; Z68.35 Body mass index [BMI] 35.0-35.9, adult; Z90.49 Acquired absence of other specified parts of digestive tract; Z79.2 Long term (current) use of antibiotics; Z79.891 Long term (current) use of opiate analgesic; Z79.4 Long term (current) use of insulin; Z79.82 Long term (current) use of aspirin; Z79.1 Long term (current) use of non-steroidal anti-inflammatories (NSAID); Z79.899 Other long term (current) drug therapy; Z87.01 Personal history of pneumonia (recurrent); Z87.891 Personal history of nicotine dependence; Z86.79 Personal history of other diseases of the circulatory system
CPT/HCPCS: 29581; 36416; 82948; 97606; A6223; A6021; A6206

== ENCOUNTER 2018-05-09 09:50 | Day surgery (SDC) | payer MEDICARE, MEDICAID ==
[2018-05-09] MEDS ORDERED: LIDOcaine/PRILOcaine 5gm cream TP ONE (10:56)
--- NOTE | 2018-05-09 12:30 | NUR ---
Patient arrived via wheelchair from [facility] and was admitted to outpatient wound care for physician visit with Oscar Arroyo MD. Dressing removed, wound cleansed and Emla cream applied per order. Patient assessed for changes in conditions, medications and medical history. 1020 - blood glucose 265. Patient instructed that elevated blood sugars delay healing of the wound and can cause further complications including but not limited to amputation of toes or feet. 1104 - Dr. Arroyo at bedside accompanied by RN. Wound assessed, time out performed by MD/RN. Wound debrided and procedure performed as detailed in the physician progress/procedure note. Plan of care discussed with patient. Dressings placed per MD orders. Pt instructed that they should not be disconnected from suction for more than 2 hours at a time. If they are not able to get the suction back on they need to remove the dressing and take all of the foam out of the wound, place hydrogel gauze on/in the wound, and change the dressing daily until someone can replace the dressing. Pt instructed to call the Wound Center or their Home Health Agency immediately if they notice a change in the color or amount of the fluid in the canister, their wound looks more red than usual or has a foul smell, the skin around their wound looks reddened or irritated, the dressing feels or appears loose, they experience pain or the alarm will not turn off. Pt instructed to call 911 or go to the ED if their canister fills rapidly with blood. Patient instructed on the signs and symptoms of infection and to call the Wound Center if any occur or to go to the ED if we are closed: Increased pain in wound Increase in drainage from the wound Redness in the skin surrounding the wound Bleeding from the wound Temperature of 101 or greater Patient instructed that the weight of their body puts a large amount of pressure on their wounds. This pressure keeps the new tissue from growing and inhibits new blood vessels from forming. Explained that, if they continue to bear weight on a body part that has a wound, the time it takes to heal the wound increases, the wound may get worse or the wound may not heal at all. Patient verbalized understanding of all discharge instructions and plan of care and exited via wheelchair out to [facility] in stable condition with no sign or symptom of distress at time of discharge. [facility] updated via [employer] voicemail and fax.
== END 2018-05-09 13:00 | disposition home or self-care (01) ==
LOC: WOUND CARE 09:50
PROVIDERS: ATTEND Surgery
DX: E11.621 Type 2 diabetes mellitus with foot ulcer (principal); L97.413 Non-pressure chronic ulcer of right heel and midfoot with necrosis of muscle; E11.622 Type 2 diabetes mellitus with other skin ulcer; I70.242 Atherosclerosis of native arteries of left leg with ulceration of calf; I83.022 Varicose veins of left lower extremity with ulcer of calf; L97.221 Non-pressure chronic ulcer of left calf limited to breakdown of skin; L97.821 Non-pressure chronic ulcer of other part of left lower leg limited to breakdown of skin; E11.40 Type 2 diabetes mellitus with diabetic neuropathy, unspecified; E11.65 Type 2 diabetes mellitus with hyperglycemia; E11.52 Type 2 diabetes mellitus with diabetic peripheral angiopathy with gangrene; E11.22 Type 2 diabetes mellitus with diabetic chronic kidney disease; I13.0 Hypertensive heart and chronic kidney disease with heart failure and stage 1 through stage 4 chronic kidney disease, or unspecified chronic kidney disease; I50.43 Acute on chronic combined systolic (congestive) and diastolic (congestive) heart failure; N18.3 Chronic kidney disease, stage 3 (moderate); E11.649 Type 2 diabetes mellitus with hypoglycemia without coma; J44.9 Chronic obstructive pulmonary disease, unspecified; I25.10 Atherosclerotic heart disease of native coronary artery without angina pectoris; E78.5 Hyperlipidemia, unspecified; I25.5 Ischemic cardiomyopathy; E66.9 Obesity, unspecified; F03.90 Unspecified dementia, unspecified severity, without behavioral disturbance, psychotic disturbance, mood disturbance, and anxiety; Z68.35 Body mass index [BMI] 35.0-35.9, adult; Z90.49 Acquired absence of other specified parts of digestive tract; Z79.2 Long term (current) use of antibiotics; Z79.891 Long term (current) use of opiate analgesic; Z79.4 Long term (current) use of insulin; Z79.82 Long term (current) use of aspirin; Z79.1 Long term (current) use of non-steroidal anti-inflammatories (NSAID); Z79.899 Other long term (current) drug therapy; Z87.01 Personal history of pneumonia (recurrent); Z87.891 Personal history of nicotine dependence; Z86.79 Personal history of other diseases of the circulatory system
CPT/HCPCS: 15275; 15276; 36416; 82948; A6222; Q4106; A4456; A6250

== ENCOUNTER 2018-05-14 10:05 | Day surgery (SDC) | payer MEDICARE, MEDICAID ==
--- NOTE | 2018-05-14 13:00 | NUR ---
Patient ambulated [facility]utches from [facility] and was admitted to outpatient wound care for physician visit with Oscar Arroyo MD. Dressing removed, wound cleansed. Patient assessed for changes in conditions, medications and medical history. 1140 - blood glucose 126. Patient instructed that elevated blood sugars delay healing of the wound and can cause further complications including but not limited to amputation of toes or feet. 1220 - Dr. Arroyo at bedside accompanied by RN. Wound assessed, time out performed by MD/RN. Wound debrided as detailed in the physician progress/procedure note. Plan of care discussed with patient. Dressings placed per MD orders. Pt instructed that they should not be disconnected from suction for more than 2 hours at a time. If they are not able to get the suction back on they need to remove the dressing and take all of the foam out of the wound, place hydrogel gauze on/in the wound, and change the dressing daily until someone can replace the dressing. Pt instructed to call the Wound Center or their Home Health Agency immediately if they notice a change in the color or amount of the fluid in the canister, their wound looks more red than usual or has a foul smell, the skin around their wound looks reddened or irritated, the dressing feels or appears loose, they experience pain or the alarm will not turn off. Pt instructed to call 911 or go to the ED if their canister fills rapidly with blood. Pt instructed to elevate legs at least 30 minutes 3 times a day or 10 minutes every 4 hours, also instructed check their toes. If they become purplish or blue, cool to the touch, numb or tingly, use a pair of scissors and carefully cut off the dressing. Call the Wound Center for an appointment to have the dressing reapplied. Pt instructed that decreased swelling in the legs and the potential for drainage from the wound may require them to have to schedule visits twice weekly, progressing to weekly as the swelling decreases in their legs. Pt instructed that if dressings become loose, wrinkled or falls down and if they are experiencing any pain or discomfort under their dressing cut the dressing off and call the Wound Center to have it reapplied. Pt instructed that the wrap needs to be kept dry. They may bath at a sink or there are devices designed to keep dressings dry these are available at most drug stores. If they choose to shower with a plastic bag taped over the wrap. Be sure to having another person available for assistance or placing towels on the floor of the shower or tub to eliminate the slick surface can reduce the risk of falls. Patient instructed on the signs and symptoms of infection and to call the Wound Center if any occur or to go to the ED if we are closed: Increased pain in wound Increase in drainage from the wound Redness in the skin surrounding the wound Bleeding from the wound Temperature of 101 or greater Patient instructed that the weight of their body puts a large amount of pressure on their wounds. This pressure keeps the new tissue from growing and inhibits new blood vessels from forming. Explained that, if they continue to bear weight on a body part that has a wound, the time it takes to heal the wound increases, the wound may get worse or the wound may not heal at all. Patient verbalized understanding of all discharge instructions and plan of care and exited via wheelchair out to lobby in stable condition with no sign or symptom of distress at time of discharge.
== END 2018-05-14 13:50 | disposition home or self-care (01) ==
LOC: WOUND CARE 10:05
PROVIDERS: ATTEND Surgery
DX: E11.621 Type 2 diabetes mellitus with foot ulcer (principal); L97.413 Non-pressure chronic ulcer of right heel and midfoot with necrosis of muscle; E11.622 Type 2 diabetes mellitus with other skin ulcer; I70.242 Atherosclerosis of native arteries of left leg with ulceration of calf; I83.022 Varicose veins of left lower extremity with ulcer of calf; L97.221 Non-pressure chronic ulcer of left calf limited to breakdown of skin; L97.821 Non-pressure chronic ulcer of other part of left lower leg limited to breakdown of skin; E11.40 Type 2 diabetes mellitus with diabetic neuropathy, unspecified; E11.65 Type 2 diabetes mellitus with hyperglycemia; E11.52 Type 2 diabetes mellitus with diabetic peripheral angiopathy with gangrene; E11.22 Type 2 diabetes mellitus with diabetic chronic kidney disease; I13.0 Hypertensive heart and chronic kidney disease with heart failure and stage 1 through stage 4 chronic kidney disease, or unspecified chronic kidney disease; I50.43 Acute on chronic combined systolic (congestive) and diastolic (congestive) heart failure; N18.3 Chronic kidney disease, stage 3 (moderate); E11.649 Type 2 diabetes mellitus with hypoglycemia without coma; J44.9 Chronic obstructive pulmonary disease, unspecified; I25.10 Atherosclerotic heart disease of native coronary artery without angina pectoris; E78.5 Hyperlipidemia, unspecified; I25.5 Ischemic cardiomyopathy; E66.9 Obesity, unspecified; F03.90 Unspecified dementia, unspecified severity, without behavioral disturbance, psychotic disturbance, mood disturbance, and anxiety; Z68.35 Body mass index [BMI] 35.0-35.9, adult; Z90.49 Acquired absence of other specified parts of digestive tract; Z79.2 Long term (current) use of antibiotics; Z79.891 Long term (current) use of opiate analgesic; Z79.4 Long term (current) use of insulin; Z79.82 Long term (current) use of aspirin; Z79.1 Long term (current) use of non-steroidal anti-inflammatories (NSAID); Z79.899 Other long term (current) drug therapy; Z87.01 Personal history of pneumonia (recurrent); Z87.891 Personal history of nicotine dependence; Z86.79 Personal history of other diseases of the circulatory system
CPT/HCPCS: 36416; 82948; 97597; 97598; A6222; A6223; A4456; A6021; A6441

== ENCOUNTER 2018-05-21 10:00 | Day surgery (SDC) | payer MEDICARE, MEDICAID ==
[~2018-05-21 10:00] MED LIST changes: -AMOX-422 PO
--- NOTE | 2018-05-21 16:30 | NUR ---
Patient arrived safely into lobby via wheelchair. Patient admitted to outpatient wound care for physician visit with Oscar Arroyo MD. Dressings and wound vac removed. Wounds cleansed and patient assessed for changes in conditions, medications and medical history. Dr. Arroyo at bedside accompanied by RN. Wound assessed, time out performed by MD/RN. Wound debrided as detailed in the physician progress/procedure note. Plan of care discussed with patient. Dressings placed per MD orders. Patient instructed on the signs and symptoms of infection and to call the Wound Center if any occur or to go to the ED if we are closed: Increased pain in wound Increase in drainage from the wound Redness in the skin surrounding the wound Bleeding from the wound Temperature of 101 or greater Patient instructed that elevated blood sugars delay healing of the wound and can cause further complications including but not limited to amputation of toes or feet. Pt instructed that they should not be disconnected from suction for more than 2 hours at a time. If they are not able to get the suction back on they need to remove the dressing and take all of the foam out of the wound, place hydrogel gauze on/in the wound, and change the dressing daily until someone can replace the dressing. Pt instructed to call the Wound Center or their Home Health Agency immediately if they notice a change in the color or amount of the fluid in the canister, their wound looks more red than usual or has a foul smell, the skin around their wound looks reddened or irritated, the dressing feels or appears loose, they experience pain or the alarm will not turn off. Pt instructed to call 911 or go to the ED if their canister fills rapidly with blood. Patient instructed that the weight of their body puts a large amount of pressure on their wounds. This pressure keeps the new tissue from growing and inhibits new blood vessels from forming. Explained that, if they continue to bear weight on a body part that has a wound, the time it takes to heal the wound increases, the wound may get worse or the wound may not heal at all. Patient verbalized understanding of all discharge instructions and plan of care. Patient instructed to return to wound care clinic for schedueled follow-up appointment with physician. Patient left in stable condition with no complaints. Addendum: 05/21/18 at 1633 by Mayra Gibbs RN Amended: Links added.
== END 2018-05-21 13:45 | disposition home or self-care (01) ==
LOC: WOUND CARE 10:00
PROVIDERS: ATTEND Surgery
DX: E11.621 Type 2 diabetes mellitus with foot ulcer (principal); L97.413 Non-pressure chronic ulcer of right heel and midfoot with necrosis of muscle; E11.622 Type 2 diabetes mellitus with other skin ulcer; I70.242 Atherosclerosis of native arteries of left leg with ulceration of calf; I83.022 Varicose veins of left lower extremity with ulcer of calf; L97.221 Non-pressure chronic ulcer of left calf limited to breakdown of skin; L97.821 Non-pressure chronic ulcer of other part of left lower leg limited to breakdown of skin; E11.40 Type 2 diabetes mellitus with diabetic neuropathy, unspecified; E11.52 Type 2 diabetes mellitus with diabetic peripheral angiopathy with gangrene; E11.65 Type 2 diabetes mellitus with hyperglycemia; E11.22 Type 2 diabetes mellitus with diabetic chronic kidney disease; I13.0 Hypertensive heart and chronic kidney disease with heart failure and stage 1 through stage 4 chronic kidney disease, or unspecified chronic kidney disease; I50.43 Acute on chronic combined systolic (congestive) and diastolic (congestive) heart failure; N18.3 Chronic kidney disease, stage 3 (moderate); E11.649 Type 2 diabetes mellitus with hypoglycemia without coma; J44.9 Chronic obstructive pulmonary disease, unspecified; I25.10 Atherosclerotic heart disease of native coronary artery without angina pectoris; E78.5 Hyperlipidemia, unspecified; I25.5 Ischemic cardiomyopathy; E66.9 Obesity, unspecified; F03.90 Unspecified dementia, unspecified severity, without behavioral disturbance, psychotic disturbance, mood disturbance, and anxiety; Z68.35 Body mass index [BMI] 35.0-35.9, adult; Z90.49 Acquired absence of other specified parts of digestive tract; Z79.2 Long term (current) use of antibiotics; Z79.891 Long term (current) use of opiate analgesic; Z79.4 Long term (current) use of insulin; Z79.82 Long term (current) use of aspirin; Z79.1 Long term (current) use of non-steroidal anti-inflammatories (NSAID); Z79.899 Other long term (current) drug therapy; Z87.01 Personal history of pneumonia (recurrent); Z87.891 Personal history of nicotine dependence; Z86.79 Personal history of other diseases of the circulatory system
CPT/HCPCS: 15275; 36416; 82948; A6222; A6223; Q4106; A6021; A6250

== ENCOUNTER 2018-05-25 09:51 | Outpatient (CLI) | payer MEDICARE, MEDICAID ==
--- NOTE | 2018-05-25 14:20 | NUR ---
Patient arrived safely into lobby via wheelchair. Patient admitted to outpatient wound care for physician visit with Oscar Arroyo MD. Dressing removed and wounds cleansed. Patient assessed for changes in conditions, medications and medical history. Dr. Arroyo at bedside accompanied by RN. Wounds assessed and no debridement was done. Plan of care discussed with patient. Dressings placed per MD orders. Patient instructed on the signs and symptoms of infection and to call the Wound Center if any occur or to go to the ED if we are closed: Increased pain in wound Increase in drainage from the wound Redness in the skin surrounding the wound Bleeding from the wound Temperature of 101 or greater Patient instructed that elevated blood sugars delay healing of the wound and can cause further complications including but not limited to amputation of toes or feet. Pt instructed that they should not be disconnected from suction for more than 2 hours at a time. If they are not able to get the suction back on they need to remove the dressing and take all of the foam out of the wound, place hydrogel gauze on/in the wound, and change the dressing daily until someone can replace the dressing. Pt instructed to call the Wound Center or their Home Health Agency immediately if they notice a change in the color or amount of the fluid in the canister, their wound looks more red than usual or has a foul smell, the skin around their wound looks reddened or irritated, the dressing feels or appears loose, they experience pain or the alarm will not turn off. Pt instructed to call 911 or go to the ED if their canister fills rapidly with blood. Pt instructed to elevate legs at least 30 minutes 3 times a day or 10 minutes every 4 hours, also instructed check their toes. If they become purplish or blue, cool to the touch, numb or tingly, use a pair of scissors and carefully cut off the dressing. Call the Wound Center for an appointment to have the dressing reapplied. Pt instructed that decreased swelling in the legs and the potential for drainage from the wound may require them to have to schedule visits twice weekly, progressing to weekly as the swelling decreases in their legs. Pt instructed that if dressings become loose, wrinkled or falls down and if they are experiencing any pain or discomfort under their dressing cut the dressing off and call the Wound Center to have it reapplied. Pt instructed that the wraps needs to be kept dry. They may bath at a sink or there are devices designed to keep dressings dry these are available at most drug stores. If they choose to shower with a plastic bag taped over the wrap. Be sure to having another person available for assistance or placing towels on the floor of the shower or tub to eliminate the slick surface can reduce the risk of falls. Patient instructed that the weight of their body puts a large amount of pressure on their wounds. This pressure keeps the new tissue from growing and inhibits new blood vessels from forming. Explained that, if they continue to bear weight on a body part that has a wound, the time it takes to heal the wound increases, the wound may get worse or the wound may not heal at all. Patient verbalized understanding of all discharge instructions and plan of care. Patient left in stable condition with no sign or symptom of distress at time of discharge. Addendum: 05/25/18 at 1424 by Mayra Gibbs RN Amended: Links added.
== END 2018-05-25 12:17 | disposition home or self-care (01) ==
LOC: WOUND CARE 09:51 → EDSTATUS 10:00 → WOUND CARE 12:17
PROVIDERS: ATTEND Surgery
DX: E11.621 Type 2 diabetes mellitus with foot ulcer (principal); L97.413 Non-pressure chronic ulcer of right heel and midfoot with necrosis of muscle; E11.622 Type 2 diabetes mellitus with other skin ulcer; I70.242 Atherosclerosis of native arteries of left leg with ulceration of calf; I83.022 Varicose veins of left lower extremity with ulcer of calf; L97.221 Non-pressure chronic ulcer of left calf limited to breakdown of skin; L97.821 Non-pressure chronic ulcer of other part of left lower leg limited to breakdown of skin; E11.40 Type 2 diabetes mellitus with diabetic neuropathy, unspecified; E11.52 Type 2 diabetes mellitus with diabetic peripheral angiopathy with gangrene; E11.65 Type 2 diabetes mellitus with hyperglycemia; E11.22 Type 2 diabetes mellitus with diabetic chronic kidney disease; I13.0 Hypertensive heart and chronic kidney disease with heart failure and stage 1 through stage 4 chronic kidney disease, or unspecified chronic kidney disease; I50.43 Acute on chronic combined systolic (congestive) and diastolic (congestive) heart failure; N18.3 Chronic kidney disease, stage 3 (moderate); E11.649 Type 2 diabetes mellitus with hypoglycemia without coma; J44.9 Chronic obstructive pulmonary disease, unspecified; I25.10 Atherosclerotic heart disease of native coronary artery without angina pectoris; E78.5 Hyperlipidemia, unspecified; I25.5 Ischemic cardiomyopathy; E66.9 Obesity, unspecified; F03.90 Unspecified dementia, unspecified severity, without behavioral disturbance, psychotic disturbance, mood disturbance, and anxiety; Z68.35 Body mass index [BMI] 35.0-35.9, adult; Z90.49 Acquired absence of other specified parts of digestive tract; Z79.2 Long term (current) use of antibiotics; Z79.891 Long term (current) use of opiate analgesic; Z79.4 Long term (current) use of insulin; Z79.82 Long term (current) use of aspirin; Z79.1 Long term (current) use of non-steroidal anti-inflammatories (NSAID); Z79.899 Other long term (current) drug therapy; Z87.01 Personal history of pneumonia (recurrent); Z87.891 Personal history of nicotine dependence; Z86.79 Personal history of other diseases of the circulatory system
CPT/HCPCS: 29581; 36416; 82948; 97605; A6223; A6021; A6206; A6441

== ENCOUNTER 2018-06-08 09:30 | Day surgery (SDC) | payer MEDICARE, MEDICAID ==
[2018-06-08] MEDS ORDERED: LIDOcaine/PRILOcaine 5gm cream TP ONE (11:12)
--- NOTE | 2018-06-08 12:30 | NUR ---
Patient arrived via wheelchair from [facility] and was admitted to outpatient wound care for physician visit with Oscar Arroyo MD. Dressing removed, wound cleansed and Emla cream applied per order. Patient assessed for changes in conditions, medications and medical history. 1024 - blood glucose 85. Patient instructed that elevated blood sugars delay healing of the wound and can cause further complications including but not limited to amputation of toes or feet. 1110 -Dr. Arroyo at bedside accompanied by RN. Wound assessed, time out performed by MD/RN. Wound debrided as detailed in the physician progress/procedure note. Plan of care discussed with patient. Dressings placed per MD orders. Pt instructed that they should not be disconnected from suction for more than 2 hours at a time. If they are not able to get the suction back on they need to remove the dressing and take all of the foam out of the wound, place hydrogel gauze on/in the wound, and change the dressing daily until someone can replace the dressing. Pt instructed to call the Wound Center or their Home Health Agency immediately if they notice a change in the color or amount of the fluid in the canister, their wound looks more red than usual or has a foul smell, the skin around their wound looks reddened or irritated, the dressing feels or appears loose, they experience pain or the alarm will not turn off. Pt instructed to call 911 or go to the ED if their canister fills rapidly with blood. Pt instructed to elevate legs at least 30 minutes 3 times a day or 10 minutes every 4 hours, also instructed check their toes. If they become purplish or blue, cool to the touch, numb or tingly, use a pair of scissors and carefully cut off the dressing. Call the Wound Center for an appointment to have the dressing reapplied. Pt instructed that decreased swelling in the legs and the potential for drainage from the wound may require them to have to schedule visits twice weekly, progressing to weekly as the swelling decreases in their legs. Pt instructed that if dressings become loose, wrinkled or falls down and if they are experiencing any pain or discomfort under their dressing cut the dressing off and call the Wound Center to have it reapplied. Pt instructed that the wrap needs to be kept dry. They may bath at a sink or there are devices designed to keep dressings dry these are available at most drug stores. If they choose to shower with a plastic bag taped over the wrap. Be sure to having another person available for assistance or placing towels on the floor of the shower or tub to eliminate the slick surface can reduce the risk of falls. Patient instructed on the signs and symptoms of infection and to call the Wound Center if any occur or to go to the ED if we are closed: Increased pain in wound Increase in drainage from the wound Redness in the skin surrounding the wound Bleeding from the wound Temperature of 101 or greater Patient instructed that the weight of their body puts a large amount of pressure on their wounds. This pressure keeps the new tissue from growing and inhibits new blood vessels from forming. Explained that, if they continue to bear weight on a body part that has a wound, the time it takes to heal the wound increases, the wound may get worse or the wound may not heal at all. Patient verbalized understanding of all discharge instructions and plan of care and exited via wheelchair out to lobby in stable condition with no sign or symptom of distress at time of discharge.
[2018-06-08] MEDS ORDERED: POTA20PA40 (14:02)
== END 2018-06-08 12:58 | disposition home or self-care (01) ==
LOC: WOUND CARE 09:30
PROVIDERS: ATTEND Surgery
DX: E11.621 Type 2 diabetes mellitus with foot ulcer (principal); L97.413 Non-pressure chronic ulcer of right heel and midfoot with necrosis of muscle; E11.622 Type 2 diabetes mellitus with other skin ulcer; I70.242 Atherosclerosis of native arteries of left leg with ulceration of calf; I83.022 Varicose veins of left lower extremity with ulcer of calf; L97.221 Non-pressure chronic ulcer of left calf limited to breakdown of skin; L97.211 Non-pressure chronic ulcer of right calf limited to breakdown of skin; L97.821 Non-pressure chronic ulcer of other part of left lower leg limited to breakdown of skin; E11.40 Type 2 diabetes mellitus with diabetic neuropathy, unspecified; E11.52 Type 2 diabetes mellitus with diabetic peripheral angiopathy with gangrene; E11.65 Type 2 diabetes mellitus with hyperglycemia; E11.22 Type 2 diabetes mellitus with diabetic chronic kidney disease; I13.0 Hypertensive heart and chronic kidney disease with heart failure and stage 1 through stage 4 chronic kidney disease, or unspecified chronic kidney disease; I50.43 Acute on chronic combined systolic (congestive) and diastolic (congestive) heart failure; N18.3 Chronic kidney disease, stage 3 (moderate); E11.649 Type 2 diabetes mellitus with hypoglycemia without coma; J44.9 Chronic obstructive pulmonary disease, unspecified; I25.10 Atherosclerotic heart disease of native coronary artery without angina pectoris; E78.5 Hyperlipidemia, unspecified; I25.2 Old myocardial infarction; E66.9 Obesity, unspecified; F03.90 Unspecified dementia, unspecified severity, without behavioral disturbance, psychotic disturbance, mood disturbance, and anxiety; Z68.35 Body mass index [BMI] 35.0-35.9, adult; Z90.49 Acquired absence of other specified parts of digestive tract; Z79.2 Long term (current) use of antibiotics; Z79.891 Long term (current) use of opiate analgesic; Z79.4 Long term (current) use of insulin; Z79.82 Long term (current) use of aspirin; Z79.1 Long term (current) use of non-steroidal anti-inflammatories (NSAID); Z79.899 Other long term (current) drug therapy; Z87.01 Personal history of pneumonia (recurrent); Z87.891 Personal history of nicotine dependence; Z86.79 Personal history of other diseases of the circulatory system
CPT/HCPCS: 15275; 29581; 36416; 82948; 97605; A6223; Q4106; A4456; A6021; A6206; A6250; A6441

== ENCOUNTER 2018-06-15 09:26 | Day surgery (SDC) | payer MEDICARE, MEDICAID ==
[~2018-06-15 09:26] MED LIST changes: +POTA20PA40
--- NOTE | 2018-06-15 12:17 | NUR ---
Patient arrived safely into lobby via wheelchair. Patient admitted to outpatient wound care clinic for physician visit with Oscar Arroyo MD. Dressing removed and wound cleansed. Patient assessed for changes in conditions, medications and medical history. Dr. Arroyo at bedside accompanied by RN. Wound assessed, time out performed by MD/RN. Wound debrided as detailed in the physician progress/procedure note. Plan of care discussed with patient. Dressings placed per MD orders. Patient instructed on the signs and symptoms of infection and to call the Wound Center if any occur or to go to the ED if we are closed: Increased pain in wound Increase in drainage from the wound Redness in the skin surrounding the wound Bleeding from the wound Temperature of 101 or greater Patient instructed that elevated blood sugars delay healing of the wound and can cause further complications including but not limited to amputation of toes or feet. Pt instructed that they should not be disconnected from suction for more than 2 hours at a time. If they are not able to get the suction back on they need to remove the dressing and take all of the foam out of the wound, place hydrogel gauze on/in the wound, and change the dressing daily until someone can replace the dressing. Pt instructed to call the Wound Center or their Home Health Agency immediately if they notice a change in the color or amount of the fluid in the canister, their wound looks more red than usual or has a foul smell, the skin around their wound looks reddened or irritated, the dressing feels or appears loose, they experience pain or the alarm will not turn off. Pt instructed to call 911 or go to the ED if their canister fills rapidly with blood. Patient instructed that the weight of their body puts a large amount of pressure on their wounds. This pressure keeps the new tissue from growing and inhibits new blood vessels from forming. Explained that, if they continue to bear weight on a body part that has a wound, the time it takes to heal the wound increases, the wound may get worse or the wound may not heal at all. Patient verbalized understanding of all discharge instructions and plan of care and ambulated independently out to [facility] in stable condition with no sign or symptom of distress at time of discharge. Addendum: 06/15/18 at 1221 by Mayra Gibbs RN Amended: Links added.
== END 2018-06-15 12:21 | disposition home or self-care (01) ==
LOC: WOUND CARE 09:26
PROVIDERS: ATTEND Surgery
DX: E11.621 Type 2 diabetes mellitus with foot ulcer (principal); L97.413 Non-pressure chronic ulcer of right heel and midfoot with necrosis of muscle; E11.622 Type 2 diabetes mellitus with other skin ulcer; I70.242 Atherosclerosis of native arteries of left leg with ulceration of calf; I83.022 Varicose veins of left lower extremity with ulcer of calf; L97.221 Non-pressure chronic ulcer of left calf limited to breakdown of skin; L97.211 Non-pressure chronic ulcer of right calf limited to breakdown of skin; L97.821 Non-pressure chronic ulcer of other part of left lower leg limited to breakdown of skin; E11.40 Type 2 diabetes mellitus with diabetic neuropathy, unspecified; E11.52 Type 2 diabetes mellitus with diabetic peripheral angiopathy with gangrene; E11.65 Type 2 diabetes mellitus with hyperglycemia; E11.22 Type 2 diabetes mellitus with diabetic chronic kidney disease; I13.0 Hypertensive heart and chronic kidney disease with heart failure and stage 1 through stage 4 chronic kidney disease, or unspecified chronic kidney disease; I50.43 Acute on chronic combined systolic (congestive) and diastolic (congestive) heart failure; N18.3 Chronic kidney disease, stage 3 (moderate); E11.649 Type 2 diabetes mellitus with hypoglycemia without coma; J44.9 Chronic obstructive pulmonary disease, unspecified; I25.10 Atherosclerotic heart disease of native coronary artery without angina pectoris; E78.5 Hyperlipidemia, unspecified; I25.2 Old myocardial infarction; E66.9 Obesity, unspecified; F03.90 Unspecified dementia, unspecified severity, without behavioral disturbance, psychotic disturbance, mood disturbance, and anxiety; Z68.35 Body mass index [BMI] 35.0-35.9, adult; Z90.49 Acquired absence of other specified parts of digestive tract; Z79.2 Long term (current) use of antibiotics; Z79.891 Long term (current) use of opiate analgesic; Z79.4 Long term (current) use of insulin; Z79.82 Long term (current) use of aspirin; Z79.1 Long term (current) use of non-steroidal anti-inflammatories (NSAID); Z79.899 Other long term (current) drug therapy; Z87.01 Personal history of pneumonia (recurrent); Z87.891 Personal history of nicotine dependence; Z86.79 Personal history of other diseases of the circulatory system
CPT/HCPCS: 11042; 11045; 36416; 82948; 97605; L3260; 29581; 97598; A6206; A6441

== ENCOUNTER 2018-06-22 09:45 | Day surgery (SDC) | payer MEDICARE, MEDICAID ==
[2018-06-22] MEDS ORDERED: LIDOcaine/PRILOcaine 5gm cream TP ONE (10:27)
--- NOTE | 2018-06-22 12:00 | NUR ---
Patient declined blood glucose check today. Addendum: 06/22/18 at 1348 by Keren Post RN Amended: Links added.
--- NOTE | 2018-06-22 12:00 | NUR ---
Patient ambulated with walker from [facility] and was admitted to outpatient wound care for physician visit with Oscar Arroyo MD. Dressing removed, wound cleansed and Emla cream applied per order. Patient assessed for changes in conditions, medications and medical history. 1045 - Dr. Arroyo at bedside accompanied by RN. Wound assessed, time out performed by MD/RN. Wound debrided as detailed in the physician progress/procedure note. Plan of care discussed with patient. Dressings placed per MD orders. Pt instructed that they should not be disconnected from suction for more than 2 hours at a time. If they are not able to get the suction back on they need to remove the dressing and take all of the foam out of the wound, place hydrogel gauze on/in the wound, and change the dressing daily until someone can replace the dressing. Pt instructed to call the Wound Center or their Home Health Agency immediately if they notice a change in the color or amount of the fluid in the canister, their wound looks more red than usual or has a foul smell, the skin around their wound looks reddened or irritated, the dressing feels or appears loose, they experience pain or the alarm will not turn off. Pt instructed to call 911 or go to the ED if their canister fills rapidly with blood. Pt instructed to elevate legs at least 30 minutes 3 times a day or 10 minutes every 4 hours, also instructed check their toes. If they become purplish or blue, cool to the touch, numb or tingly, use a pair of scissors and carefully cut off the dressing. Call the Wound Center for an appointment to have the dressing reapplied. Pt instructed that decreased swelling in the legs and the potential for drainage from the wound may require them to have to schedule visits twice weekly, progressing to weekly as the swelling decreases in their legs. Pt instructed that if dressings become loose, wrinkled or falls down and if they are experiencing any pain or discomfort under their dressing cut the dressing off and call the Wound Center to have it reapplied. Pt instructed that the wrap needs to be kept dry. They may bath at a sink or there are devices designed to keep dressings dry these are available at most drug stores. If they choose to shower with a plastic bag taped over the wrap. Be sure to having another person available for assistance or placing towels on the floor of the shower or tub to eliminate the slick surface can reduce the risk of falls. Patient instructed on the signs and symptoms of infection and to call the Wound Center if any occur or to go to the ED if we are closed: Increased pain in wound Increase in drainage from the wound Redness in the skin surrounding the wound Bleeding from the wound Temperature of 101 or greater Patient instructed that the weight of their body puts a large amount of pressure on their wounds. This pressure keeps the new tissue from growing and inhibits new blood vessels from forming. Explained that, if they continue to bear weight on a body part that has a wound, the time it takes to heal the wound increases, the wound may get worse or the wound may not heal at all. Patient verbalized understanding of all discharge instructions and plan of care and ambulated with walker out to lobby in stable condition with no sign or symptom of distress at time of discharge.
== END 2018-06-22 12:13 | disposition home or self-care (01) ==
LOC: WOUND CARE 09:45
PROVIDERS: ATTEND Surgery
DX: E11.621 Type 2 diabetes mellitus with foot ulcer (principal); L97.413 Non-pressure chronic ulcer of right heel and midfoot with necrosis of muscle; E11.622 Type 2 diabetes mellitus with other skin ulcer; I70.242 Atherosclerosis of native arteries of left leg with ulceration of calf; I83.022 Varicose veins of left lower extremity with ulcer of calf; L97.221 Non-pressure chronic ulcer of left calf limited to breakdown of skin; L97.211 Non-pressure chronic ulcer of right calf limited to breakdown of skin; L97.821 Non-pressure chronic ulcer of other part of left lower leg limited to breakdown of skin; E11.40 Type 2 diabetes mellitus with diabetic neuropathy, unspecified; E11.52 Type 2 diabetes mellitus with diabetic peripheral angiopathy with gangrene; E11.65 Type 2 diabetes mellitus with hyperglycemia; E11.22 Type 2 diabetes mellitus with diabetic chronic kidney disease; I13.0 Hypertensive heart and chronic kidney disease with heart failure and stage 1 through stage 4 chronic kidney disease, or unspecified chronic kidney disease; I50.43 Acute on chronic combined systolic (congestive) and diastolic (congestive) heart failure; N18.3 Chronic kidney disease, stage 3 (moderate); E11.649 Type 2 diabetes mellitus with hypoglycemia without coma; J44.9 Chronic obstructive pulmonary disease, unspecified; I25.10 Atherosclerotic heart disease of native coronary artery without angina pectoris; E78.5 Hyperlipidemia, unspecified; I25.2 Old myocardial infarction; E66.9 Obesity, unspecified; F03.90 Unspecified dementia, unspecified severity, without behavioral disturbance, psychotic disturbance, mood disturbance, and anxiety; Z68.35 Body mass index [BMI] 35.0-35.9, adult; Z90.49 Acquired absence of other specified parts of digestive tract; Z79.2 Long term (current) use of antibiotics; Z79.891 Long term (current) use of opiate analgesic; Z79.4 Long term (current) use of insulin; Z79.82 Long term (current) use of aspirin; Z79.1 Long term (current) use of non-steroidal anti-inflammatories (NSAID); Z79.899 Other long term (current) drug therapy; Z87.01 Personal history of pneumonia (recurrent); Z87.891 Personal history of nicotine dependence; Z86.79 Personal history of other diseases of the circulatory system
CPT/HCPCS: 97597; 97598; A4456; A6441

== ENCOUNTER 2018-06-29 09:50 | Day surgery (SDC) | payer MEDICARE, MEDICAID ==
[2018-06-29] MEDS ORDERED: LIDOcaine/PRILOcaine 5gm cream TP ONE (10:36)
--- NOTE | 2018-06-29 12:30 | NUR ---
Patient arrived via wheelchair from [facility] and was admitted to outpatient wound care for physician visit with Oscar Arroyo MD. Dressing removed, wound cleansed and Emla cream applied per order. Patient assessed for changes in conditions, medications and medical history. 1037 - blood glucose 333. Patient instructed that elevated blood sugars delay healing of the wound and can cause further complications including but not limited to amputation of toes or feet. 1115 - Dr. Arroyo at bedside accompanied by RN. Wound assessed, time out performed by MD/RN. Wound debrided and procedure performed as detailed in the physician progress/procedure note. Plan of care discussed with patient. Dressings placed per MD orders. Pt instructed that they should not be disconnected from suction for more than 2 hours at a time. If they are not able to get the suction back on they need to remove the dressing and take all of the foam out of the wound, place hydrogel gauze on/in the wound, and change the dressing daily until someone can replace the dressing. Pt instructed to call the Wound Center or their Home Health Agency immediately if they notice a change in the color or amount of the fluid in the canister, their wound looks more red than usual or has a foul smell, the skin around their wound looks reddened or irritated, the dressing feels or appears loose, they experience pain or the alarm will not turn off. Pt instructed to call 911 or go to the ED if their canister fills rapidly with blood. Pt instructed to elevate legs at least 30 minutes 3 times a day or 10 minutes every 4 hours, also instructed check their toes. If they become purplish or blue, cool to the touch, numb or tingly, use a pair of scissors and carefully cut off the dressing. Call the Wound Center for an appointment to have the dressing reapplied. Pt instructed that decreased swelling in the legs and the potential for drainage from the wound may require them to have to schedule visits twice weekly, progressing to weekly as the swelling decreases in their legs. Pt instructed that if dressings become loose, wrinkled or falls down and if they are experiencing any pain or discomfort under their dressing cut the dressing off and call the Wound Center to have it reapplied. Pt instructed that the wrap needs to be kept dry. They may bath at a sink or there are devices designed to keep dressings dry these are available at most drug stores. If they choose to shower with a plastic bag taped over the wrap. Be sure to having another person available for assistance or placing towels on the floor of the shower or tub to eliminate the slick surface can reduce the risk of falls. Patient instructed on the signs and symptoms of infection and to call the Wound Center if any occur or to go to the ED if we are closed: Increased pain in wound Increase in drainage from the wound Redness in the skin surrounding the wound Bleeding from the wound Temperature of 101 or greater Patient instructed that the weight of their body puts a large amount of pressure on their wounds. This pressure keeps the new tissue from growing and inhibits new blood vessels from forming. Explained that, if they continue to bear weight on a body part that has a wound, the time it takes to heal the wound increases, the wound may get worse or the wound may not heal at all. Patient verbalized understanding of all discharge instructions and plan of care and exited via wheelchair out to lobby in stable condition with no sign or symptom of distress at time of discharge.
== END 2018-06-29 12:40 | disposition home or self-care (01) ==
LOC: WOUND CARE 09:50
PROVIDERS: ATTEND Surgery
DX: E11.621 Type 2 diabetes mellitus with foot ulcer (principal); L97.413 Non-pressure chronic ulcer of right heel and midfoot with necrosis of muscle; E11.622 Type 2 diabetes mellitus with other skin ulcer; I70.242 Atherosclerosis of native arteries of left leg with ulceration of calf; I83.022 Varicose veins of left lower extremity with ulcer of calf; L97.221 Non-pressure chronic ulcer of left calf limited to breakdown of skin; L97.211 Non-pressure chronic ulcer of right calf limited to breakdown of skin; L97.821 Non-pressure chronic ulcer of other part of left lower leg limited to breakdown of skin; E11.40 Type 2 diabetes mellitus with diabetic neuropathy, unspecified; E11.52 Type 2 diabetes mellitus with diabetic peripheral angiopathy with gangrene; E11.65 Type 2 diabetes mellitus with hyperglycemia; E11.22 Type 2 diabetes mellitus with diabetic chronic kidney disease; I13.0 Hypertensive heart and chronic kidney disease with heart failure and stage 1 through stage 4 chronic kidney disease, or unspecified chronic kidney disease; I50.43 Acute on chronic combined systolic (congestive) and diastolic (congestive) heart failure; N18.3 Chronic kidney disease, stage 3 (moderate); E11.649 Type 2 diabetes mellitus with hypoglycemia without coma; J44.9 Chronic obstructive pulmonary disease, unspecified; I25.10 Atherosclerotic heart disease of native coronary artery without angina pectoris; E78.5 Hyperlipidemia, unspecified; I25.2 Old myocardial infarction; E66.9 Obesity, unspecified; F03.90 Unspecified dementia, unspecified severity, without behavioral disturbance, psychotic disturbance, mood disturbance, and anxiety; Z68.35 Body mass index [BMI] 35.0-35.9, adult; Z90.49 Acquired absence of other specified parts of digestive tract; Z79.2 Long term (current) use of antibiotics; Z79.891 Long term (current) use of opiate analgesic; Z79.4 Long term (current) use of insulin; Z79.82 Long term (current) use of aspirin; Z79.1 Long term (current) use of non-steroidal anti-inflammatories (NSAID); Z79.899 Other long term (current) drug therapy; Z87.01 Personal history of pneumonia (recurrent); Z87.891 Personal history of nicotine dependence; Z86.79 Personal history of other diseases of the circulatory system
CPT/HCPCS: 15275; 15276; 29581; 36416; 82948; Q4106; A4456; A6441

== ENCOUNTER 2018-07-06 12:25 | Inpatient (IN) | payer MEDICARE, MEDICAID ==
[~2018-07-06] VITALS: Ht 177.8 cm; Wt 117.0 kg
[2018-07-06 13:32] LABS: BASOPHILS # (AUTO) 0.1 X10'3 (0-0.2); BASOPHILS % (AUTO) 0.7 % (0-1); EOSINOPHILS % (AUTO) 0.2 % (0-6); HEMATOCRIT 35.8 % (42.0-52.0); HEMOGLOBIN 11.4 g/dl (14.0-17.9); LYMPHOCYTES # (AUTO) 0.6 X10'3 (1.1-4.8); LYMPHOCYTES % (AUTO) 3.8 % (21-51); MEAN CORPUSCULAR HEMOGLOBIN 27.3 PG (27.0-31.0); MEAN CORPUSCULAR HGB CONC 31.7 g/dL (33.0-36.5); MEAN CORPUSCULAR VOLUME 85.9 FL (78-98); MEAN PLATELET VOLUME 8.6 FL (7.4-10.4); MONOCYTES # (AUTO) 0.9 X10'3 (0-0.9); MONOCYTES % (AUTO) 5.5 % (2-12); NEUTROPHILS # (AUTO) 14.6 X10'3 (1.8-7.7); NEUTROPHILS % (AUTO) 89.8 % (42-75); PLATELET COUNT 307 X10'3 (140-440); RED BLOOD COUNT 4.17 X10'6 (4.70-6.10); RED CELL DISTRIBUTION WIDTH 17.2 % (11.5-14.5); WHITE BLOOD COUNT 16.3 X10'3 (4.5-11.0)
[2018-07-06 13:44] LABS: INR 1.4 INR; PARTIAL THROMBOPLASTIN TIME 34 SECONDS (22-32)
[2018-07-06 13:51] LABS: ALANINE AMINOTRANSFERASE 10 U/L (12-78); ALBUMIN 2.1 G/DL (3.4-5.0); ALBUMIN/GLOBULIN RATIO 0.5 (1.1-1.5); ALKALINE PHOSPHATASE 146 IU/L (46-116); ANION GAP 4 (8-16); ASPARTATE AMINO TRANSFERASE 21 U/L (10-37); BILIRUBIN,TOTAL 1.9 MG/DL (0.1-1.0); BLOOD UREA NITROGEN 38 MG/DL (7-18); BUN/CREATININE RATIO 22.4 (5.4-32.0); CALCIUM 8.8 MG/DL (8.5-10.1); CHLORIDE 101 MMOL/L (99-107); GLUCOSE 258 MG/DL (70-104); POTASSIUM 4.9 MMOL/L (3.5-5.1); SODIUM 135 MMOL/L (135-145); TOTAL CARBON DIOXIDE 29.8 MMOL/L (24-32); TOTAL PROTEIN 6.6 G/DL (6.4-8.2); eGFR 41 ML/MIN
[2018-07-06] MEDS ORDERED: furosemide 10 MG/1 ML 10ml inj IV ONE (13:55)
--- NOTE | 2018-07-06 14:02 | NUR ---
Pt refused lasix. Dr Borden aware.
[2018-07-06] MEDS ORDERED: potassium Cl 40MEQ/NS 500ml 500 ML IV PRN ×2 (15:05)
[2018-07-06] MEDS ORDERED: MESSAGE TO PHARMACY PO ONE (15:05)
[2018-07-06] MEDS ORDERED: mag hydrox/Alum hydrox/simeth 30ml oral suspension PO PRN (15:05)
[2018-07-06] MEDS ORDERED: magnesium 4gm in 100ml NS 100 ML IV PRN (15:05)
[2018-07-06] MEDS ORDERED: magnesium 2GM in 50ml NS 50 ML IV PRN (15:05)
[2018-07-06] MEDS ORDERED: potassium Cl 20 mEq SR tablet PO PRN ×2 (15:05)
[2018-07-06] MEDS ORDERED: magnesium hydroxide 30ml (MOM) UD suspension PO PRN (15:05)
[2018-07-06] MEDS ORDERED: dextrose 50%-water 50ml dispensing syringe IV PRN ×2 (15:05)
[2018-07-06] MEDS ORDERED: dextrose ORAL solution 15 GM/59 ML bottle PO PRN (15:05)
[2018-07-06] MEDS ORDERED: acetaminophen 325mg tablet PO PRN (15:05)
[2018-07-06] MEDS ORDERED: glucagon, human recombinant 1mg kit SUBCUT PRN (15:05)
[2018-07-06 15:18] LABS: TOTAL CELLS COUNTED 100
[2018-07-06 15:19] LABS: ANISOCYTOSIS 1+; PLATELET ESTIMATE NORMAL; POLYCHROMASIA FEW; SCHISTOCYTES FEW
[2018-07-06] MEDS ORDERED: LISI-600 PO (15:25)
[2018-07-06] MEDS ORDERED: POTA20TA19 PO (15:25)
[2018-07-06] MEDS ORDERED: SPIR25TA5 PO (15:25)
[2018-07-06] MEDS ORDERED: CARV-50 PO (15:26)
[2018-07-06] MEDS ORDERED: FURO40TA4 PO (15:26)
[2018-07-06] MEDS ORDERED: ISOS30TA6 PO (15:26)
[2018-07-06] MEDS ORDERED: INSU100V9 SQ (15:27)
[2018-07-06] MEDS ORDERED: ASPI-1265 PO (15:27)
[2018-07-06 15:36] LABS: CLARITY,URINE CLEAR (Clear); COLOR,URINE YELLOW (Yellow); GLUCOSE, URINE NEGATIVE (Neg); KETONES,URINE TRACE mg/dl (Neg); LEUKOCYTE ESTERASE ,URINE NEGATIVE (Neg); NITRITES, URINE NEGATIVE (Neg); OCCULT BLOOD,URINE TRACE-LYSED (Neg); PROTEIN,URINE NEGATIVE (Neg)
--- NOTE | 2018-07-06 15:39 | NUR ---
Attempted to do a skin check but pt completely refuses to let me look at his legs stating that his wound vac absolutely cannot be disturbed or touched.
[2018-07-06 15:41] LABS: UA COLLECTION TYPE STRAIGHT CATH
[2018-07-06 15:42] LABS: RBC,URINE NONE SEEN /HPF (0-2); WBC,URINE NONE SEEN /HPF (0-4)
[2018-07-06 15:43] LABS: AMORPHOUS URATES 1+; BACTERIA,URINE NONE SEEN /HPF (Neg); MUCUS STRANDS MODERATE /LPF (Neg); SQUAMOUS EPITHELIAL CELL,UR FEW /LPF (FEW)
[2018-07-06 16:18] LABS: HEMOGLOBIN A1C 9.7 % (4.5-6.2)
[2018-07-06 17:04] VITALS: BP 125/72
--- NOTE | 2018-07-06 18:06 | NUR ---
of patient called verbalized concern about patient being "septic". I relayed to her over the phone the patient's WBC 16.3 and that patient is on Zosyn IV and has no fever, BP and HR are within normal. She is requesting us to have more test to be done. Paged Dr. Solis to let him know about this. Dr. Solis said he will review the medical record Addendum: 07/06/18 at 1845 by Lakeisha Paul RN Dr. Solis ordered blood culture and lacticsepsis tests, patient notified
--- NOTE | 2018-07-06 18:44 | NUR ---
Problems reprioritized. Patient report given, questions answered & plan of care reviewed with Cammie URIARTE.
--- NOTE | 2018-07-06 18:46 | NUR ---
Patient in room [facility] 346. I have received report from JENNIFER URIARTE and had the opportunity to ask questions and assume patient care.
[2018-07-06] MEDS: insulin Lispro (HumaLOG) vial - multi-dose SQ SCH (19:43)
[2018-07-06 20:00] VITALS: BP 116/56
[2018-07-06] MEDS: piperacillin/tazo 3.375gm/50ml 50 ML IV SCH (20:08)
[2018-07-06] MEDS: furosemide 10 MG/1 ML 10ml inj IV SCH (20:13)
[2018-07-06] MEDS: carVEDilol 12.5mg tablet PO SCH (20:22)
--- NOTE | 2018-07-06 20:30 | NUR ---
PAGED DR. MALONE TO INFORM LACTIC RESULT 2.2 AWAITING RESPONSE.
[2018-07-06] MEDS: insulin glargine (Lantus) pen - multi-dose SQ SCH (22:07)
--- NOTE | 2018-07-06 22:30 | NUR ---
PAGED DR. MALONE AGAIN AND CALLED BACK INFORMED OF 2HOUR LACTIC WENT UP TO 3.2 FROM 2.2 WITH ORDER TO GIVE IVF OF NS @100ML/HR AND REPEAT LACTIC AT 0600.
[2018-07-06] MEDS: normal saline 1000ml 1,000 ML IV SCH (22:51)
[2018-07-07] VITALS (7 sets, daily range): BP systolic 80–132; BP diastolic 50–63
[2018-07-07] MEDS ORDERED: piperacillin/tazo 3.375gm/50ml 50 ML IV SCH
[2018-07-07] MEDS: piperacillin/tazo 3.375gm/50ml 50 ML IV SCH ×3 (00:19→16:16)
--- NOTE | 2018-07-07 06:25 | NUR ---
Patient in room [facility] 346. I have received report from Cammie URIARTE and had the opportunity to ask questions and assume patient care.
[2018-07-07 07:06] LABS: BASOPHILS % (AUTO) 0.3 % (0-1); EOSINOPHILS % (AUTO) 0.3 % (0-6); HEMATOCRIT 33.7 % (42.0-52.0); HEMOGLOBIN 10.8 g/dl (14.0-17.9); LYMPHOCYTES # (AUTO) 0.7 X10'3 (1.1-4.8); LYMPHOCYTES % (AUTO) 4.8 % (21-51); MEAN CORPUSCULAR HEMOGLOBIN 27.5 PG (27.0-31.0); MEAN PLATELET VOLUME 8.5 FL (7.4-10.4); MONOCYTES # (AUTO) 0.6 X10'3 (0-0.9); MONOCYTES % (AUTO) 4.6 % (2-12); NEUTROPHILS # (AUTO) 12.2 X10'3 (1.8-7.7); PLATELET COUNT 307 X10'3 (140-440); RED BLOOD COUNT 3.92 X10'6 (4.70-6.10); RED CELL DISTRIBUTION WIDTH 16.8 % (11.5-14.5); WHITE BLOOD COUNT 13.5 X10'3 (4.5-11.0)
[2018-07-07 07:19] LABS: ALANINE AMINOTRANSFERASE 11 U/L (12-78); ALBUMIN 1.8 G/DL (3.4-5.0); ALBUMIN/GLOBULIN RATIO 0.4 (1.1-1.5); ALKALINE PHOSPHATASE 123 IU/L (46-116); ANION GAP 3 (8-16); ASPARTATE AMINO TRANSFERASE 15 U/L (10-37); BILIRUBIN,TOTAL 1.5 MG/DL (0.1-1.0); BLOOD UREA NITROGEN 41 MG/DL (7-18); BUN/CREATININE RATIO 22.3 (5.4-32.0); CALCIUM 8.3 MG/DL (8.5-10.1); CHLORIDE 104 MMOL/L (99-107); CREATININE 1.84 MG/DL (0.60-1.10); POTASSIUM 4.8 MMOL/L (3.5-5.1); SODIUM 139 MMOL/L (135-145); TOTAL CARBON DIOXIDE 31.9 MMOL/L (24-32); TOTAL PROTEIN 5.9 G/DL (6.4-8.2); eGFR 37 ML/MIN
[2018-07-07 07:21] LABS: GLUCOSE 73 MG/DL (70-104)
[2018-07-07 07:24] LABS: CHOL/HDL RATIO 7.6 (0.00-4.99); CHOLESTEROL 68 MG/DL (0-200); HDL CHOLESTEROL 9 MG/DL (35-60); LDL CHOLESTEROL 48 MG/DL (50-100); TRIGLYCERIDES 99 MG/DL (20-135)
[2018-07-07] MEDS ORDERED: lisinopril 20mg tablet PO SCH (08:00)
[2018-07-07] MEDS: K and/or MAG REPLACEMENT MC SCH (08:00)
[2018-07-07] MEDS: carVEDilol 12.5mg tablet PO SCH ×2 (08:00→20:00)
[2018-07-07] MEDS: isosorbide mononitrate 30mg tab.SR.24H PO SCH (08:00)
[2018-07-07] MEDS: furosemide 10 MG/1 ML 10ml inj IV SCH (08:00)
[2018-07-07] MEDS ORDERED: spironolactone 25 MG tablet PO SCH (08:00)
[2018-07-07] MEDS: aspirin 81mg tab.chew PO SCH (08:14)
[2018-07-07] MEDS: normal saline 1000ml 1,000 ML IV SCH (08:30)
--- NOTE | 2018-07-07 09:36 | NUR ---
Patient refused skin assessment on his left leg that is covered by a stocking. Patient states "I was told that it should not be touch!" I explained to him that nurses need to see how it looks like, patient still refused it to be touched
--- NOTE | 2018-07-07 10:15 | NUR ---
Paged Dr. Solis regarding low BP readings since this am. At 10:00 am BP 88/52, heart rate 58, manually checked BP 80/50, pulse 57. Lactic acid and WBC also reviewed with the doctor. Dr. Solis said its okay to hold all BP meds for now and said he will see the patient
--- NOTE | 2018-07-07 11:58 | NUR ---
DM consult: Pt with A1c 9.7. Per physical assessment pt is A/O x2; DM ed not appropriate at this time. Pt admit with CHF exacerbation and with a DM ulcer to bilat lower leg, currently with wound VAC. Pt will also need protein ed once appropriate. Will continue to follow. Recommendations: 1) Continue with heart healthy CHO controlled diet 2) Monitor need for ONS 3) DM and protein ed prior to d/c 4) Wt per rx Addendum: 07/07/18 at [address] Amended: Links added.
--- NOTE | 2018-07-07 12:26 | NUR ---
Blood sugar was 79 mg/dl despite not giving insulin coverage this am for blood sugar of 79 mg/dl this morning. Encouraged patient to eat his lunch tray, patient wanted to sleep. Patient also did not wanted to be bothered for admission questions that need to be done.
--- NOTE | 2018-07-07 15:00 | NUR ---
Patient has not peed > 8hrs yet, bladder appear distended. Dr. Solis notified about this and that the bladder scan was only showing [address] Solis ordered to redo bladder scan after 2 hours Addendum: 07/07/18 at 1550 by Lakeisha Paul RN Encouraged patient to void, sat patient up on the bed, patient holding urinal trying to go pee
[2018-07-07] MEDS ORDERED: LIDOcaine 2% 10ml TOPICAL JELLY (Urojet) MM ONE ×2 (17:35→22:05)
--- NOTE | 2018-07-07 17:43 | NUR ---
Patient still has not peed at this time, bladder scan showed 38ml but bladder is distended. Dr. Solis notified about this - received order for Lidocaine jelly prior to rodriguez catheter insertion and to insert rodriguez
--- NOTE | 2018-07-07 18:42 | NUR ---
Problems reprioritized. Patient report given, questions answered & plan of care reviewed with Cammie URIARTE.
--- NOTE | 2018-07-07 18:43 | NUR ---
Patient in room [facility] 346. I have received report from JENNIFER URIARTE and had the opportunity to ask questions and assume patient care.
--- NOTE | 2018-07-07 19:30 | NUR ---
PATIENT REFUSED TO HAVE CATHETER ON, CLAIMED THAT HE IS OK. "I DON'T WANT IT NOW. I WANT TO SLEEP".
--- NOTE | 2018-07-07 22:30 | NUR ---
ACCU CHECK DONE WITH RESULT OF 70. TRIED TO GIVE GLUCOSE BUT REFUSED EVEN OFFERED TO DRINK JUICE BUT REFUSED. "IM OK AND I FEEL FINE STOP BOTHERING ME.
[2018-07-07] MEDS: insulin glargine (Lantus) pen - multi-dose SQ SCH (22:34)
--- NOTE | 2018-07-07 23:00 | NUR ---
TRIED TO CHECK BLOOD SUGAR BUT REFUSED. TRIED TO DO ANOTHER BLADDER SCAN AND EXPLAINED THAT HE MIGHT BE SEPTIC IF URINE WILL BACK UP TO THE KIDNEY IF HE WONT BE ABLE TO PEE. PATIENT AGREED BLADDER SCAN 837ML. PATIENT AGREED TO PLACE KO CATHETER. KO CATH INSERTED ASEPTICALLY WITH DARK YELLOW URINE.
--- NOTE | 2018-07-07 23:30 | NUR ---
PATIENT NOT DARTED YET, TRIED TO ASK HIM QUESTIONS BUT GOT AGITATED. "LEAVE ME ALONE STOP BOTHERING ME, I WANT TO SLEEP".
[2018-07-08] VITALS: BP 95/62
[2018-07-08] MEDS: piperacillin/tazo 3.375gm/50ml 50 ML IV SCH ×4 (00:17→23:31)
[2018-07-08] MEDS: normal saline 1000ml 1,000 ML IV SCH ×3 (00:24→19:42)
--- NOTE | 2018-07-08 03:29 | NUR ---
FITTER UP CALLED PATIENT'S T WAVE IS BECOMING DEPRESSED. WILL DO EKG AND CALL MD.
[2018-07-08 03:35] VITALS: BP 96/62
--- NOTE | 2018-07-08 04:00 | NUR ---
CALLED DR. MALONE AND WAS INFORMED OF CIGAR MAKING MACHINE SUPERVISOR REPORT WITH EKG RESULT AND VITAL SIGNS. NO NEW ORDERS MADE.
[2018-07-08 05:28] LABS: BASOPHILS % (AUTO) 0.2 % (0-1); EOSINOPHILS % (AUTO) 0.1 % (0-6); HEMATOCRIT 35.2 % (42.0-52.0); HEMOGLOBIN 11.5 g/dl (14.0-17.9); LYMPHOCYTES # (AUTO) 0.7 X10'3 (1.1-4.8); MEAN CORPUSCULAR HEMOGLOBIN 27.9 PG (27.0-31.0); MEAN CORPUSCULAR HGB CONC 32.7 g/dL (33.0-36.5); MEAN CORPUSCULAR VOLUME 85.4 FL (78-98); MEAN PLATELET VOLUME 8.6 FL (7.4-10.4); MONOCYTES # (AUTO) 0.6 X10'3 (0-0.9); MONOCYTES % (AUTO) 3.9 % (2-12); NEUTROPHILS # (AUTO) 15.2 X10'3 (1.8-7.7); NEUTROPHILS % (AUTO) 91.8 % (42-75); PLATELET COUNT 294 X10'3 (140-440); RED BLOOD COUNT 4.12 X10'6 (4.70-6.10); RED CELL DISTRIBUTION WIDTH 16.9 % (11.5-14.5); WHITE BLOOD COUNT 16.6 X10'3 (4.5-11.0)
[2018-07-08 05:49] LABS: ALANINE AMINOTRANSFERASE 9 U/L (12-78); ALBUMIN 1.8 G/DL (3.4-5.0); ALBUMIN/GLOBULIN RATIO 0.4 (1.1-1.5); ALKALINE PHOSPHATASE 140 IU/L (46-116); ANION GAP 5 (8-16); ASPARTATE AMINO TRANSFERASE 19 U/L (10-37); BILIRUBIN,TOTAL 2.2 MG/DL (0.1-1.0); BLOOD UREA NITROGEN 48 MG/DL (7-18); BUN/CREATININE RATIO 22.4 (5.4-32.0); CALCIUM 8.3 MG/DL (8.5-10.1); CHLORIDE 102 MMOL/L (99-107); CREATININE 2.14 MG/DL (0.60-1.10); SODIUM 136 MMOL/L (135-145); TOTAL CARBON DIOXIDE 28.7 MMOL/L (24-32); TOTAL PROTEIN 5.9 G/DL (6.4-8.2); eGFR 31 ML/MIN
[2018-07-08 06:01] LABS: GLUCOSE 71 MG/DL (70-104)
--- NOTE | 2018-07-08 06:25 | NUR ---
Problems reprioritized. Patient report given, questions answered & plan of care reviewed with SUSY URIARTE.
[2018-07-08 06:52] LABS: TOTAL CELLS COUNTED 100
[2018-07-08 06:53] LABS: PLATELET ESTIMATE NORMAL
[2018-07-08 06:54] LABS: ANISOCYTOSIS 1+; TOXIC VACUOLATION FEW
[2018-07-08 06:55] LABS: POLYCHROMASIA 2+; TOXIC GRANULATION 3+
[2018-07-08 07:00] VITALS: BP 102/56
[2018-07-08] MEDS: carVEDilol 12.5mg tablet PO SCH ×2 (08:00→19:42)
[2018-07-08] MEDS: isosorbide mononitrate 30mg tab.SR.24H PO SCH (08:00)
[2018-07-08] MEDS: aspirin 81mg tab.chew PO SCH (08:00)
[2018-07-08] MEDS: K and/or MAG REPLACEMENT MC SCH (08:00)
--- NOTE | 2018-07-08 08:28 | NUR ---
Pt is refusing to take her oral meds. she is quite confused. she keeps asking me what they are for. i have educated her extensively several times. she still refuses meds. Her IV in not flushing will change IV and hang ABX
[2018-07-08 11:00] VITALS: BP 95/55
[2018-07-08 14:35] LABS: CLARITY,URINE TURBID (Clear); COLOR,URINE AMBER (Yellow)
[2018-07-08 14:52] LABS: TOTAL PROTEIN,URINE RANDOM 195.5 MG/DL
[2018-07-08 14:53] LABS: UA COLLECTION TYPE OTHER
[2018-07-08 14:58] LABS: BACTERIA,URINE NONE SEEN /HPF (Neg); RBC,URINE TNTC /HPF (0-2); WBC,URINE 0-4 /HPF (0-4)
[2018-07-08 15:03] LABS: COARSE GRANULAR CAST 0-3 /LPF (NEGATIVE); MUCUS STRANDS NONE SEEN /LPF (Neg); SQUAMOUS EPITHELIAL CELL,UR NONE SEEN /LPF (FEW); TRANSITIONAL EPI CELLS,URINE FEW /HPF
[2018-07-08 15:04] LABS: AMORPHOUS URATES 2+
--- NOTE | 2018-07-08 18:23 | NUR ---
Received report from KALANI Patel. Patient is awake and alert on room air, in no apparent distress. Call light and items of frequent use within reach. PCT at bedside turning patient. Will continue to monitor.
--- NOTE | 2018-07-08 18:36 | NUR ---
Problems reprioritized. Patient report given, questions answered & plan of care reviewed with bessie bell.
[2018-07-08] MEDS: lactobacillus rhamnosus 10,000 MMU CELLS/CAPSULE PO SCH (19:40)
[2018-07-08 20:00] VITALS: BP 90/50
[2018-07-08] MEDS: insulin glargine (Lantus) pen - multi-dose SQ SCH (20:47)
[2018-07-09] VITALS: BP 85/45
[2018-07-09] MEDS: normal saline 1000ml 1,000 ML IV SCH ×3 (04:21→17:13)
[2018-07-09 05:26] LABS: BASOPHILS % (AUTO) 0.1 % (0-1); EOSINOPHILS % (AUTO) 0.1 % (0-6); HEMATOCRIT 35.6 % (42.0-52.0); HEMOGLOBIN 11.3 g/dl (14.0-17.9); LYMPHOCYTES # (AUTO) 0.6 X10'3 (1.1-4.8); LYMPHOCYTES % (AUTO) 3.3 % (21-51); MEAN CORPUSCULAR HEMOGLOBIN 27.1 PG (27.0-31.0); MEAN CORPUSCULAR HGB CONC 31.7 g/dL (33.0-36.5); MEAN CORPUSCULAR VOLUME 85.4 FL (78-98); MEAN PLATELET VOLUME 8.7 FL (7.4-10.4); MONOCYTES # (AUTO) 0.7 X10'3 (0-0.9); MONOCYTES % (AUTO) 4.1 % (2-12); NEUTROPHILS # (AUTO) 15.5 X10'3 (1.8-7.7); NEUTROPHILS % (AUTO) 92.4 % (42-75); PLATELET COUNT 296 X10'3 (140-440); RED BLOOD COUNT 4.17 X10'6 (4.70-6.10); RED CELL DISTRIBUTION WIDTH 17.3 % (11.5-14.5); WHITE BLOOD COUNT 16.8 X10'3 (4.5-11.0)
--- NOTE | 2018-07-09 06:00 | NUR ---
Patient in room [facility] 346. I have received report from Venus URIARTE and had the opportunity to ask questions and assume patient care.
[2018-07-09 06:05] LABS: ALANINE AMINOTRANSFERASE 8 U/L (12-78); ALBUMIN 1.4 G/DL (3.4-5.0); ALBUMIN/GLOBULIN RATIO 0.4 (1.1-1.5); ALKALINE PHOSPHATASE 176 IU/L (46-116); ANION GAP 13 (8-16); ASPARTATE AMINO TRANSFERASE 30 U/L (10-37); BILIRUBIN,TOTAL 2.2 MG/DL (0.1-1.0); BLOOD UREA NITROGEN 57 MG/DL (7-18); BUN/CREATININE RATIO 20.7 (5.4-32.0); CHLORIDE 101 MMOL/L (99-107); CREATININE 2.75 MG/DL (0.60-1.10); MAGNESIUM 2.2 MG/DL (1.5-2.4); POTASSIUM 5.3 MMOL/L (3.5-5.1); SODIUM 138 MMOL/L (135-145); TOTAL CARBON DIOXIDE 23.8 MMOL/L (24-32); TOTAL PROTEIN 5.2 G/DL (6.4-8.2); eGFR 23 ML/MIN
--- NOTE | 2018-07-09 06:11 | NUR ---
Problems reprioritized. Patient report given, questions answered & plan of care reviewed with KALANI Arizmendi.
[2018-07-09 06:25] LABS: TOTAL CELLS COUNTED 100
[2018-07-09 06:26] LABS: ANISOCYTOSIS 1+; PLATELET ESTIMATE NORMAL
[2018-07-09 06:28] LABS: GLUCOSE 219 MG/DL (70-104); POIKILOCYTOSIS FEW; POLYCHROMASIA 1+; TOXIC GRANULATION 1+; TOXIC VACUOLATION FEW
[2018-07-09] MEDS: aspirin 81mg tab.chew PO SCH (07:50)
[2018-07-09] MEDS: lactobacillus rhamnosus 10,000 MMU CELLS/CAPSULE PO SCH ×2 (07:50→19:50)
[2018-07-09] MEDS: isosorbide mononitrate 30mg tab.SR.24H PO SCH (07:50)
[2018-07-09] MEDS: piperacillin/tazo 3.375gm/50ml 50 ML IV SCH ×3 (07:50→23:43)
[2018-07-09 08:00] VITALS: BP 90/50
[2018-07-09] MEDS: carVEDilol 12.5mg tablet PO SCH ×2 (08:00→19:50)
[2018-07-09] MEDS: K and/or MAG REPLACEMENT MC SCH (08:00)
[2018-07-09] MEDS: insulin Lispro (HumaLOG) vial - multi-dose SQ SCH ×3 (09:17→19:49)
[2018-07-09 11:00] VITALS: BP 130/51
--- NOTE | 2018-07-09 11:33 | NUR ---
Orders obtained from Dr. Arroyo to change WV, orders put in. Donny URIARTE on the unit to change WV currently.
--- NOTE | 2018-07-09 12:09 | NUR ---
WV dressing change completed along with pictures placed in chart. Patient tolerated well.
--- NOTE | 2018-07-09 14:16 | NUR ---
WOUND VAC EDUCATION PROVIDED BY WOUND CARE 1. Patient instructed to call the Wound Center or their Home Health Agency immediately if: * They notice a change in the color or amount of the fluid in the canister. * Their wound looks more red than usual or has a foul smell. * The skin around their wound looks reddened or irritated. * The dressing feels loose or appears to be loose. * They experience any increase or changes in their pain. * The alarm will not turn off. 2. Patient instructed that they should not be disconnected from suction for more than 2 hours at a time. * If they are not able to get the suction back on, they need to remove the dressing and take all of the foam out of the wound. * Then moisten sterile gauze with normal saline and place on/in the wound. * Change the dressing once a day until arrangements have been made to replace the wound vac dressing. 3. Patient instructed to turn the wound vac machine OFF and call 911 or go to the ED immediately if their canister fills rapidly with blood. 4. If any of these occur while in the hospital tell a nurse immediately. Addendum: 07/09/18 at 1516 by Milly Allen RN Amended: Links added.
--- NOTE | 2018-07-09 15:07 | NUR ---
RECOMMEND: 1. Daily bathing with no rinse skin cleanser. 2. Cream/Lotion to be applied to skin after bathing. 3. Cindy care Q shift and prn soiling. Follow with Barrier Cream prn redness. 4. Turn patient Q 1-2 hrs and reposition with pillows. 5. Float heels to offload pressure. 6. Wound VAC to left heel. Settings 75mmHg, low, continous. Routine dressing changes 7: Dietary consult Addendum: 07/09/18 at 1516 by Milly Allen RN Amended: Links added.
[2018-07-09 16:40] LABS: CLARITY,URINE CLOUDY (Clear); GLUCOSE, URINE NEGATIVE (Neg); KETONES,URINE 15 mg/dl (Neg); LEUKOCYTE ESTERASE ,URINE SMALL (Neg); OCCULT BLOOD,URINE LARGE (Neg); PROTEIN,URINE 100 mg/dl (Neg)
[2018-07-09 17:09] LABS: UA COLLECTION TYPE FOLEY CATH
[2018-07-09 17:11] LABS: COLOR,URINE DARK YELLOW (Yellow)
[2018-07-09 17:13] LABS: NITRITES, URINE POSITIVE (Neg)
[2018-07-09 17:17] LABS: RBC,URINE TNTC /HPF (0-2)
[2018-07-09 17:18] LABS: AMORPHOUS URATES 2+; BACTERIA,URINE 1+ /HPF (Neg); SQUAMOUS EPITHELIAL CELL,UR FEW /LPF (FEW)
[2018-07-09 17:19] LABS: RENAL CELLS, URINE FEW /HPF; TRANSITIONAL EPI CELLS,URINE FEW /HPF
[2018-07-09 18:00] VITALS: BP 70/39
--- NOTE | 2018-07-09 18:08 | NUR ---
Discharged on nursing staff end. Patient is waiting for ride to pick up worker. Addendum: 07/10/18 at 0617 by Kyleigh Boothe RN Wrong patient, void entry.
--- NOTE | 2018-07-09 18:16 | NUR ---
Dr. Rudolph and Dr. Jimenez aware of urine out put decreased.
--- NOTE | 2018-07-09 18:38 | NUR ---
Patient in room [facility] 346. I have received report from KALANI Arizmendi and had the opportunity to ask questions and assume patient care.
[2018-07-09 19:28] LABS: UA EOSINOPHILS NO EOS /HPF
[2018-07-09] MEDS: insulin glargine (Lantus) pen - multi-dose SQ SCH (21:46)
[2018-07-10] VITALS (18 sets, daily range): BP systolic 73–106; BP diastolic 41–61
[2018-07-10] MEDS: normal saline 1000ml 1,000 ML IV SCH ×2 (00:34→17:18)
--- NOTE | 2018-07-10 06:14 | NUR ---
Problems reprioritized. Patient report given, questions answered & plan of care reviewed with KALANI Arizmendi.
--- NOTE | 2018-07-10 06:32 | NUR ---
Patient in room B[facility]IE 346A. I have received report from [place] URIARTE and had the opportunity to ask questions and assume patient care with Kyleigh URIARTE.
--- NOTE | 2018-07-10 06:35 | NUR ---
Patient in room [facility] 346. I have received report from Harpreet URIARTE and had the opportunity to ask questions and assume patient care.
[2018-07-10] MEDS: carVEDilol 12.5mg tablet PO SCH ×2 (07:26→19:18)
[2018-07-10 07:33] LABS: BASOPHILS % (AUTO) 0.2 % (0-1); MONOCYTES # (AUTO) 0.6 X10'3 (0-0.9)
[2018-07-10 07:35] LABS: EOSINOPHILS % (AUTO) 0.1 % (0-6); HEMATOCRIT 35.2 % (42.0-52.0); HEMOGLOBIN 11.4 g/dl (14.0-17.9); LYMPHOCYTES # (AUTO) 0.6 X10'3 (1.1-4.8); LYMPHOCYTES % (AUTO) 3.1 % (21-51); MEAN CORPUSCULAR HEMOGLOBIN 27.6 PG (27.0-31.0); MEAN CORPUSCULAR HGB CONC 32.5 g/dL (33.0-36.5); MEAN CORPUSCULAR VOLUME 84.9 FL (78-98); MEAN PLATELET VOLUME 8.7 FL (7.4-10.4); NEUTROPHILS # (AUTO) 18.4 X10'3 (1.8-7.7); NEUTROPHILS % (AUTO) 93.6 % (42-75); PLATELET COUNT 251 X10'3 (140-440); RED BLOOD COUNT 4.14 X10'6 (4.70-6.10); RED CELL DISTRIBUTION WIDTH 17.6 % (11.5-14.5)
[2018-07-10 07:50] LABS: WHITE BLOOD COUNT 19.7 X10'3 (4.5-11.0)
[2018-07-10] MEDS: K and/or MAG REPLACEMENT MC SCH (08:00)
[2018-07-10] MEDS: lactobacillus rhamnosus 10,000 MMU CELLS/CAPSULE PO SCH ×2 (08:23→19:18)
[2018-07-10] MEDS: piperacillin/tazo 3.375gm/50ml 50 ML IV SCH ×3 (08:23→23:29)
[2018-07-10] MEDS: isosorbide mononitrate 30mg tab.SR.24H PO SCH (08:23)
[2018-07-10] MEDS: aspirin 81mg tab.chew PO SCH (08:23)
--- NOTE | 2018-07-10 09:02 | NUR ---
Lab called to notify patient lab draw was not enough to run labs, will come and redraw.
--- NOTE | 2018-07-10 09:10 | NUR ---
Notified Dr. Anna patient is stating he feels like he is having a lot of gas. Order for Simethicone received. Order for Abd xray received. MD aware of patients hypotension of SBP 89, no orders. Notified MD of low Urine output for NOC shift and still this morning.
[2018-07-10] MEDS ORDERED: simethicone 80mg chew tab PO PRN (09:15)
--- NOTE | 2018-07-10 09:24 | NUR ---
Patient has not finished his breakfast, unable to cover patient with Humalog as of yet.
[2018-07-10] MEDS: insulin Lispro (HumaLOG) vial - multi-dose SQ SCH ×2 (09:34→14:37)
[2018-07-10] MEDS: acetaminophen 325mg tablet PO PRN (09:35)
[2018-07-10 09:37] LABS: ALANINE AMINOTRANSFERASE 12 U/L (12-78); ALBUMIN 1.7 G/DL (3.4-5.0); ALBUMIN/GLOBULIN RATIO 0.4 (1.1-1.5); ALKALINE PHOSPHATASE 175 IU/L (46-116); ANION GAP 9 (8-16); ASPARTATE AMINO TRANSFERASE 29 U/L (10-37); BILIRUBIN,TOTAL 2.1 MG/DL (0.1-1.0); BLOOD UREA NITROGEN 65 MG/DL (7-18); BUN/CREATININE RATIO 20.2 (5.4-32.0); CALCIUM 7.8 MG/DL (8.5-10.1); CHLORIDE 101 MMOL/L (99-107); CREATININE 3.22 MG/DL (0.60-1.10); MAGNESIUM 2.1 MG/DL (1.5-2.4); POTASSIUM 5.1 MMOL/L (3.5-5.1); SODIUM 133 MMOL/L (135-145); TOTAL CARBON DIOXIDE 23.4 MMOL/L (24-32); TOTAL PROTEIN 6.1 G/DL (6.4-8.2); eGFR 19 ML/MIN
[2018-07-10 09:38] LABS: GLUCOSE 174 MG/DL (70-104)
[2018-07-10] MEDS ORDERED: DOBUTamine-DoBUTrex 500mg/D5W 250 ML IV SCH (11:05)
--- NOTE | 2018-07-10 11:05 | NUR ---
Patient SBP in the 70's, Dr. Anna aware. Patient to be transferred to tele as soon as bed is open.
--- NOTE | 2018-07-10 11:35 | NUR ---
Problems reprioritized. Patient report given, questions answered & plan of care reviewed with Marium URIARTE.
--- NOTE | 2018-07-10 11:46 | NUR ---
Patient off the unit, transferred to tele by telecasting technician. All belongings taken with patient, Medications from [facility]ell taken with patient on transfer.
--- NOTE | 2018-07-10 14:55 | NUR ---
Problems reprioritized. Patient report given, questions answered & plan of care reviewed with Preethi URIARTE in ICU. pt transferred to ICU
--- NOTE | 2018-07-10 14:58 | NUR ---
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 Pt seen by RD for written/verbal DM and high protein eds w/ RD contact information provided. Pt agrees to ensure high protein TIDWM; MD and dietary notified. GERALD d/w RN for multivitamin/mineral per MD approval for wound healing needs. Pt PO 50% avg mechanical soft/heart healthy/carb controlled meals not meeting healing needs. Pt has no teeth but agrees to only basic chopped foods and not ground meats. [facility] 07/09. Will continue to monitor. Recommendations: 1) Continue with heart healthy/CHO controlled/[facility] soft diet 2) ensure high protein TIDWM 3) DM and protein ed prior to d/c 4) Wt per rx Addendum: 07/10/18 at [address] Amended: Links added.
--- NOTE | 2018-07-10 15:00 | NUR ---
received pt from pcu placed on monitor
[2018-07-10] MEDS: DOBUTamine-DoBUTrex 500mg/D5W 250 ML IV SCH (16:55)
[2018-07-10] MEDS ORDERED: NORepinephrine 8mg/ 250ml NS 250 ML IV PRN (17:40)
--- NOTE | 2018-07-10 18:20 | NUR ---
Patient in room ICU 2042. I have received report from KALANI Martin, and had the opportunity to ask questions and assume patient care.
[2018-07-10] MEDS: furosemide 20 MG/2 ML vial IV SCH (19:18)
--- NOTE | 2018-07-10 19:55 | NUR ---
Pt transported to [place] via [place] bed, accompanied by KALANI Bates, and LAUREEN Woodard.
--- NOTE | 2018-07-10 20:15 | NUR ---
Pt returned to ICU 2042 via [place] bed, accompanied by KALANI Bates, and LAUREEN Woodard.
[2018-07-10] MEDS: insulin glargine (Lantus) pen - multi-dose SQ SCH (21:00)
[2018-07-11] VITALS (19 sets, daily range): BP systolic 83–116; BP diastolic 49–73
--- NOTE | 2018-07-11 01:00 | NUR ---
Pt repositioned to left side. Pt states that he is "too hot" and pulling off gown and monitoring equipment. Pt educated on need for monitoring equipment. Gown removed and pt covered with sheet. Temp 37.0 at this time.
[2018-07-11] MEDS: ondansetron/PF 4mg/2ml inj IV PRN (01:30)
--- NOTE | 2018-07-11 01:30 | NUR ---
Pt c/o nausea. Given PRN Zofran.
--- NOTE | 2018-07-11 01:35 | NUR ---
Pt desating to low 80's while on left side. Pt placed on 2L via N/C. Pt educated on need for O2. Pt states that he is concerned about MRSA because of the N/C. Educated on N/C and MRSA risk. Pt verbalizes understanding and agreeable to have O2.
[2018-07-11 02:24] LABS: ALANINE AMINOTRANSFERASE 13 U/L (12-78); ALBUMIN 1.6 G/DL (3.4-5.0); ALBUMIN/GLOBULIN RATIO 0.4 (1.1-1.5); ALKALINE PHOSPHATASE 172 IU/L (46-116); ANION GAP 7 (8-16); ASPARTATE AMINO TRANSFERASE 23 U/L (10-37); BILIRUBIN,TOTAL 1.9 MG/DL (0.1-1.0); BLOOD UREA NITROGEN 67 MG/DL (7-18); BUN/CREATININE RATIO 18.7 (5.4-32.0); CALCIUM 7.7 MG/DL (8.5-10.1); CHLORIDE 101 MMOL/L (99-107); CREATININE 3.59 MG/DL (0.60-1.10); SODIUM 135 MMOL/L (135-145); TOTAL CARBON DIOXIDE 26.8 MMOL/L (24-32); TOTAL PROTEIN 5.8 G/DL (6.4-8.2); eGFR 17 ML/MIN
[2018-07-11 02:25] LABS: BASOPHILS % (AUTO) 0.1 % (0-1); EOSINOPHILS % (AUTO) 0.2 % (0-6); HEMATOCRIT 33.8 % (42.0-52.0); HEMOGLOBIN 10.8 g/dl (14.0-17.9); LYMPHOCYTES # (AUTO) 0.5 X10'3 (1.1-4.8); LYMPHOCYTES % (AUTO) 2.3 % (21-51); MEAN CORPUSCULAR HEMOGLOBIN 26.8 PG (27.0-31.0); MEAN CORPUSCULAR VOLUME 83.7 FL (78-98); MEAN PLATELET VOLUME 8.5 FL (7.4-10.4); MONOCYTES # (AUTO) 0.5 X10'3 (0-0.9); MONOCYTES % (AUTO) 2.8 % (2-12); NEUTROPHILS # (AUTO) 18.6 X10'3 (1.8-7.7); NEUTROPHILS % (AUTO) 94.6 % (42-75); PLATELET COUNT 290 X10'3 (140-440); RED BLOOD COUNT 4.04 X10'6 (4.70-6.10); RED CELL DISTRIBUTION WIDTH 17.5 % (11.5-14.5); WHITE BLOOD COUNT 19.7 X10'3 (4.5-11.0)
[2018-07-11 02:29] LABS: GLUCOSE 137 MG/DL (70-104)
[2018-07-11] MEDS: DOBUTamine-DoBUTrex 500mg/D5W 250 ML IV SCH ×2 (06:06→17:51)
--- NOTE | 2018-07-11 06:30 | NUR ---
Patient in room ICU . I have received report from Jana Gerardo RN and had the opportunity to ask questions and assume patient care.
--- NOTE | 2018-07-11 06:41 | NUR ---
Problems reprioritized. Patient report given, questions answered & plan of care reviewed with KALANI Mackay.
[2018-07-11] MEDS: K and/or MAG REPLACEMENT MC SCH (08:00)
[2018-07-11] MEDS: carVEDilol 12.5mg tablet PO SCH (09:13)
[2018-07-11] MEDS: furosemide 20 MG/2 ML vial IV SCH (09:15)
[2018-07-11] MEDS: aspirin 81mg tab.chew PO SCH (09:17)
[2018-07-11] MEDS: isosorbide mononitrate 30mg tab.SR.24H PO SCH (09:17)
[2018-07-11] MEDS: lactobacillus rhamnosus 10,000 MMU CELLS/CAPSULE PO SCH ×2 (09:17→22:17)
[2018-07-11] MEDS: piperacillin/tazo 3.375gm/50ml 50 ML IV SCH ×2 (09:17→17:52)
[2018-07-11] MEDS: insulin Lispro (HumaLOG) vial - multi-dose SQ SCH ×2 (09:36→14:28)
--- NOTE | 2018-07-11 10:30 | NUR ---
Report given to Marium URIARTE, PCU nurse.
--- NOTE | 2018-07-11 10:50 | NUR ---
Report called to receiving nurse, Marium URIARTE. Transferred via ICU bed Belongings . Special Issues communicated to receiving nurse. Patient in PCU 3011I.
--- NOTE | 2018-07-11 10:55 | NUR ---
Patient in room PCU 3014. I have received report from MANAGER DIABETES and had the opportunity to ask questions and assume patient care. Pt arrived on unit, telemetry was initiated, patient 2rn skin check was performed and physical assessment was done. Patient was oriented to room and has no complaints at this time. Will continue to monitor.
--- NOTE | 2018-07-11 18:29 | NUR ---
Problems reprioritized. Patient report given, questions answered & plan of care reviewed with Codie URIARTE. Patient stable at transfer of care.
[2018-07-11] MEDS: insulin glargine (Lantus) pen - multi-dose SQ SCH (22:17)
[2018-07-11] MEDS: acetaminophen 325mg tablet PO PRN (22:24)
[2018-07-12] VITALS (24 sets, daily range): BP systolic 72–117; BP diastolic 42–76
[2018-07-12] MEDS: piperacillin/tazo 3.375gm/50ml 50 ML IV SCH ×3 (00:56→21:06)
[2018-07-12 03:43] LABS: BASOPHILS % (AUTO) 0.2 % (0-1); EOSINOPHILS # (AUTO) 0.1 X10'3 (0-0.9); EOSINOPHILS % (AUTO) 0.4 % (0-6); HEMATOCRIT 31.3 % (42.0-52.0); LYMPHOCYTES # (AUTO) 0.6 X10'3 (1.1-4.8); LYMPHOCYTES % (AUTO) 3.8 % (21-51); MEAN CORPUSCULAR VOLUME 84.5 FL (78-98); MONOCYTES # (AUTO) 0.5 X10'3 (0-0.9); MONOCYTES % (AUTO) 3.4 % (2-12); NEUTROPHILS # (AUTO) 14.7 X10'3 (1.8-7.7); NEUTROPHILS % (AUTO) 92.2 % (42-75); PLATELET COUNT 253 X10'3 (140-440); RED CELL DISTRIBUTION WIDTH 17.3 % (11.5-14.5)
[2018-07-12 03:59] LABS: ALANINE AMINOTRANSFERASE 12 U/L (12-78); ALBUMIN 1.5 G/DL (3.4-5.0); ALBUMIN/GLOBULIN RATIO 0.3 (1.1-1.5); ALKALINE PHOSPHATASE 140 IU/L (46-116); ANION GAP 9 (8-16); ASPARTATE AMINO TRANSFERASE 19 U/L (10-37); BILIRUBIN,TOTAL 1.8 MG/DL (0.1-1.0); BLOOD UREA NITROGEN 73 MG/DL (7-18); CALCIUM 8.1 MG/DL (8.5-10.1); CHLORIDE 100 MMOL/L (99-107); CREATININE 4.06 MG/DL (0.60-1.10); MAGNESIUM 2.1 MG/DL (1.5-2.4); POTASSIUM 5.2 MMOL/L (3.5-5.1); SODIUM 135 MMOL/L (135-145); TOTAL CARBON DIOXIDE 26.2 MMOL/L (24-32); TOTAL PROTEIN 5.8 G/DL (6.4-8.2); eGFR 15 ML/MIN
[2018-07-12 04:04] LABS: GLUCOSE 150 MG/DL (70-104)
[2018-07-12] MEDS: K and/or MAG REPLACEMENT MC SCH (07:36)
[2018-07-12] MEDS: isosorbide mononitrate 30mg tab.SR.24H PO SCH (07:45)
[2018-07-12] MEDS: lactobacillus rhamnosus 10,000 MMU CELLS/CAPSULE PO SCH ×2 (07:46→20:00)
[2018-07-12] MEDS: insulin Lispro (HumaLOG) vial - multi-dose SQ SCH ×2 (07:59→12:16)
[2018-07-12] MEDS: aspirin 81mg tab.chew PO SCH (08:00)
[2018-07-12] MEDS ORDERED: clindamycin-Cleocin 900mg/D5W 50 ML IV SCH (08:55)
[2018-07-12] MEDS: DOBUTamine-DoBUTrex 500mg/D5W 250 ML IV SCH ×2 (09:06→21:54)
[2018-07-12 09:37] LABS: C-REACTIVE PROTEIN 12.78 MG/DL (0.0-0.5); CREATINE KINASE 28 U/L (39-308)
[2018-07-12] MEDS ORDERED: ringers solution, lacted 1,000 ML IV SCH ×2 (12:35→16:30)
[2018-07-12] MEDS ORDERED: sevoflurane 250ml liquid IH ONE (14:31)
[2018-07-12] MEDS ORDERED: DOBUTamine/D5W 500mg/250ml premix IV ONE (14:31)
[2018-07-12] MEDS ORDERED: neostigmine methylsulfate 1 MG/ML 10ml vial ONE (14:31)
[2018-07-12] MEDS ORDERED: glycopyrrolate 0.2mg/ml inj ONE (14:31)
[2018-07-12] MEDS ORDERED: ketamine 10mg/ml 20ml inj ONE (14:39)
[2018-07-12] MEDS ORDERED: midazolam 2 mg/2 ml injection ONE (14:41)
[2018-07-12] MEDS ORDERED: fentaNYL /PF 50mcg/ml 5ml ampule ONE (14:41)
[2018-07-12] MEDS ORDERED: etomidate 2mg/ml inj. ONE (14:46)
[2018-07-12] MEDS ORDERED: rocuronium 10mg/ml inj IV ONE (14:46)
--- NOTE | 2018-07-12 16:06 | NUR ---
Received from OR via , accompanied by Anesthesiologist and report given by Anesthesiolgist. PATIENT ARRIVED ON HOSPITAL BED, RESPONDS TO VERBAL STIMULI, O2 SAT 93% ON 10L MASK, VSS CHARTED. LEFT EJ IN PLACE WITH IVF INFUSING AND DOBUTAMINE GTT AT 5ML/HR INFUSING, ART LINE IN PLACE TO RIGHT RADIAL WRIST, WV TO RIGHT STUMP AT 125 LOW CONT/HOUR, 200CC OF RED DRAINAGIE IN CANISTER NOTED. WILL CONTINUE TO MONITOR.
[2018-07-12] MEDS ORDERED: ondansetron/PF 4mg/2ml inj IV PRN (16:30)
[2018-07-12] MEDS ORDERED: HYDROmorphone inj. 0.5 MG/0.5 ML DISP.SYRIN IV PRN ×2 (16:30)
--- NOTE | 2018-07-12 16:30 | NUR ---
ABG'S DRAWN ORDERED.
[2018-07-12 16:40] LABS: ABG BASE EXCESS -5.2 mmol/L (-2.0-3.0); ABG HCO3 21.8 mmol/L (22.0-26.0); ABG OXYGEN SATURATION 93.8 % (95-98); ABG PCO2 (T) 49.2 mmHg (35.0-48.0); ABG PH (T) 7.265 (7.350-7.450); ABG PO2 (T) 79.4 mmHg (83-108); FCOHb 0.3 % (0.5-1.5); FMetHb 0.2 % (0.3-1.12); FO2Hb 93.3 % (94-100); TOTAL HEMOGLOBIN 11.4 G/dl (14.0-18.0)
--- NOTE | 2018-07-12 17:26 | NUR ---
PATIENT TRANSFER CRITERIA MET. REPORT CALLED TO BRITTNEE URIARTE ON PCU, ALL QUESTIONS AND CONCERNS ADDRESSED. WV IN PLACE AT 125 CONT SUCTION, DRESSING REINFORCED NEEDED., VSS CHARTED. PATIENT TRANSFERRED VIA HOSPITAL BED, ACCOMPANIED BY STAFF.
--- NOTE | 2018-07-12 17:48 | NUR ---
Left mesage for Dr Georges's answering service about his leg bleeding through.
--- NOTE | 2018-07-12 17:51 | NUR ---
Dr Georges said to get an H&H in the morning.
--- NOTE | 2018-07-12 17:59 | NUR ---
PAGER ID: [phone] MESSAGE: [phone] [phone] Jose Munson. Can we get a stat H&H. Urbano's leg is bleeding through. It saturated the ibeth and had to replace a canister in the wound vac within 10 min of a new one. KALANI Benoit Ext [phone]
--- NOTE | 2018-07-12 18:05 | NUR ---
While given report by end off the shift I was ask to evaluate patient bleeding , patient post-op AKA was bleeding around and under plastic ,the wound Vac didn't work do to thrombosis. Dr Mendiola contacted and problems reported : wound Vac is not working ,order to removed wound vac and try reapply received, he stated if it is not possible repack wound with sterile gaze with Betadine and applied Kerlix and secured with Demetrio wrap , order read back discharge coordinator Kathi at the phone with me. When I come back to room patient was profusely bleeding. Rapid respond team called DR. FUENTES at the bed side. Wound dressing removed, bleeding was continuos. Plastic for wound vac was not big enough to cover wound. Wound was then packed with 4x4 with Betadine and secured with kerlix covered by demetrio wrap. pt was then transferred to ICU.
--- NOTE | 2018-07-12 18:31 | NUR ---
PAGER ID: [phone] MESSAGE: [id number] Jose Calzada called. Ext [phone] KALANI Benoit
[2018-07-12] MEDS: HYDROmorphone 1 mg/ml syringe IV PRN (18:48)
--- NOTE | 2018-07-12 18:59 | NUR ---
Problems reprioritized. Patient report given, questions answered & plan of care reviewed with KALANI Kerr.
[2018-07-12] MEDS ORDERED: HYDROcodone/acetaminophen 10/325mg tab PO PRN (19:05)
[2018-07-12 19:16] LABS: HEMATOCRIT 24.1 % (42.0-52.0); HEMOGLOBIN 7.8 g/dl (14.0-17.9); MEAN CORPUSCULAR HEMOGLOBIN 27.3 PG (27.0-31.0); MEAN CORPUSCULAR HGB CONC 32.4 g/dL (33.0-36.5); MEAN CORPUSCULAR VOLUME 84.4 FL (78-98); PLATELET COUNT 219 X10'3 (140-440); RED BLOOD COUNT 2.85 X10'6 (4.70-6.10); RED CELL DISTRIBUTION WIDTH 17.5 % (11.5-14.5); WHITE BLOOD COUNT 14.3 X10'3 (4.5-11.0)
[2018-07-12 19:58] LABS: INR 1.4 INR
[2018-07-12 19:59] LABS: PARTIAL THROMBOPLASTIN TIME 33 SECONDS (22-32)
[2018-07-12] MEDS: clindamycin-Cleocin 900mg/D5W 50 ML IV SCH (20:55)
[2018-07-12] MEDS ORDERED: calcium chloride inj. 1,000 MG in normal saline 100ml IV soln 90 ML IV ONE (21:45)
[2018-07-12] MEDS: insulin glargine (Lantus) pen - multi-dose SQ SCH (21:51)
[2018-07-12] MEDS ORDERED: calcium chloride 100 MG/1 ML inj IV ONE (22:30)
[2018-07-12] MEDS ORDERED: NORepinephrine 8mg/ 250ml NS 250 ML IV SCH (23:05)
[2018-07-12] MEDS ORDERED: NORepinephrine 8mg/ 250ml NS 250 ML IV ONE (23:06)
[2018-07-12] MEDS: normal saline 1000ml 1,000 ML IV SCH (23:38)
[2018-07-12] MEDS: NORepinephrine 8mg/ 250ml NS 250 ML IV PRN (23:47)
[2018-07-13] VITALS (24 sets, daily range): BP systolic 78–109; BP diastolic 48–82
[2018-07-13 00:15] LABS: HEMATOCRIT 27.9 % (42.0-52.0); HEMOGLOBIN 8.9 g/dl (14.0-17.9); MEAN CORPUSCULAR HEMOGLOBIN 27.4 PG (27.0-31.0); MEAN CORPUSCULAR VOLUME 85.6 FL (78-98); MEAN PLATELET VOLUME 8.1 FL (7.4-10.4); PLATELET COUNT 203 X10'3 (140-440); RED BLOOD COUNT 3.26 X10'6 (4.70-6.10); RED CELL DISTRIBUTION WIDTH 16.6 % (11.5-14.5); WHITE BLOOD COUNT 15.2 X10'3 (4.5-11.0)
--- NOTE | 2018-07-13 01:10 | NUR ---
I ORIGINALLY ASSUMED CARE OF THE PATIENT ON PCU. WHILE RECEIVING REPORT I WAS CALLED INTO THE ROOM. PATIENT'S POST-OP AKA WAS BLEEDING PROFUSELY AND THE WOUND VAC WAS NOT FUNCTIONING. THE SURGEON HAD BEEN NOTIFIED AND INSTRUCTED ONE OF THE DAY SHIFT NURSES TO REMOVE THE WOUND VAC AND APPLY A PRESSURE DRESSING. I ASSISTED. HOSPITALIST NOW AT BEDSIDE- DR. FUENTES. LABS WERE DRAWN- BP DROPPING, 1000CC FLUID BOLUS ORDERED AND THEN 2 UNITS PRBCs. PATIENT TRANSFERRED TO ICU, REMAINED IN MY CARE.
--- NOTE | 2018-07-13 01:22 | NUR ---
PATIENT HAS HAD ESSENTIALLY NO URINE OUTPUT THIS SHIFT. ESTHER SNEED PULLMAN CAR REPAIRER HAS BEEN ADVISED
[2018-07-13] MEDS: HYDROmorphone 1 mg/ml syringe IV PRN (04:03)
[2018-07-13 04:04] LABS: BASOPHILS % (AUTO) 0.3 % (0-1); EOSINOPHILS # (AUTO) 0.1 X10'3 (0-0.9); EOSINOPHILS % (AUTO) 0.8 % (0-6); HEMATOCRIT 27.3 % (42.0-52.0); LYMPHOCYTES # (AUTO) 0.9 X10'3 (1.1-4.8); LYMPHOCYTES % (AUTO) 5.7 % (21-51); MEAN CORPUSCULAR HEMOGLOBIN 27.7 PG (27.0-31.0); MEAN CORPUSCULAR VOLUME 84.1 FL (78-98); MEAN PLATELET VOLUME 8.2 FL (7.4-10.4); MONOCYTES # (AUTO) 0.8 X10'3 (0-0.9); MONOCYTES % (AUTO) 5.1 % (2-12); NEUTROPHILS # (AUTO) 13.2 X10'3 (1.8-7.7); NEUTROPHILS % (AUTO) 88.1 % (42-75); PLATELET COUNT 217 X10'3 (140-440); RED BLOOD COUNT 3.25 X10'6 (4.70-6.10); WHITE BLOOD COUNT 14.9 X10'3 (4.5-11.0)
[2018-07-13 04:21] LABS: ALANINE AMINOTRANSFERASE 11 U/L (12-78); ALBUMIN 1.2 G/DL (3.4-5.0); ALBUMIN/GLOBULIN RATIO 0.3 (1.1-1.5); ALKALINE PHOSPHATASE 92 IU/L (46-116); ANION GAP 7 (8-16); ASPARTATE AMINO TRANSFERASE 15 U/L (10-37); BILIRUBIN,TOTAL 1.9 MG/DL (0.1-1.0); BLOOD UREA NITROGEN 73 MG/DL (7-18); BUN/CREATININE RATIO 16.5 (5.4-32.0); CALCIUM 7.6 MG/DL (8.5-10.1); CHLORIDE 103 MMOL/L (99-107); CREATININE 4.43 MG/DL (0.60-1.10); MAGNESIUM 2.1 MG/DL (1.5-2.4); POTASSIUM 5.5 MMOL/L (3.5-5.1); SODIUM 135 MMOL/L (135-145); TOTAL CARBON DIOXIDE 24.6 MMOL/L (24-32); eGFR 13 ML/MIN
[2018-07-13 04:24] LABS: GLUCOSE 129 MG/DL (70-104)
[2018-07-13] MEDS: piperacillin/tazo 3.375gm/50ml 50 ML IV SCH ×2 (04:27→13:20)
[2018-07-13] MEDS: clindamycin-Cleocin 900mg/D5W 50 ML IV SCH ×3 (04:27→21:10)
[2018-07-13] MEDS ORDERED: heparin 1,000 units/ml 10ml inj HE ONE ×2 (08:00)
[2018-07-13] MEDS ORDERED: normal saline 1000ml 250 ML IV PRN (08:00)
[2018-07-13] MEDS: K and/or MAG REPLACEMENT MC SCH (08:00)
[2018-07-13] MEDS ORDERED: heparin 1,000unit/ml 10ml vial 10 ML IV ONE (08:00)
[2018-07-13] MEDS: isosorbide mononitrate 30mg tab.SR.24H PO SCH (08:12)
[2018-07-13] MEDS: aspirin 81mg tab.chew PO SCH (08:12)
[2018-07-13] MEDS: lactobacillus rhamnosus 10,000 MMU CELLS/CAPSULE PO SCH ×2 (08:12→21:09)
[2018-07-13] MEDS: insulin Lispro (HumaLOG) vial - multi-dose SQ SCH (08:42)
[2018-07-13] MEDS ORDERED: vancomycin/NS 1 GM ADD-VANTAGE 250 ML IV SCH (10:00)
--- NOTE | 2018-07-13 10:57 | NUR ---
WOUND CARE: [facility] was asked to place a wound vac on the right AKA. When removing the top layer of marcus wrap with João URIARTE, there was fresh nia blood on the gauze that was covering a bottom layer marcus wrap that also had bleeding through it. At this time I recommend the surgeon to reevaluate the wound for bleeding prior to wound vac being placed. I did not remove the bottom marcus wrap, I wanted it to remain with pressure to aid in stopping any further bleeding from occurring. João URIARTE will notify the surgeon.
[2018-07-13 12:19] LABS: HEMATOCRIT 25.2 % (42.0-52.0); HEMOGLOBIN 8.2 g/dl (14.0-17.9); MEAN CORPUSCULAR HEMOGLOBIN 27.6 PG (27.0-31.0); MEAN CORPUSCULAR HGB CONC 32.4 g/dL (33.0-36.5); MEAN CORPUSCULAR VOLUME 85.2 FL (78-98); PLATELET COUNT 208 X10'3 (140-440); RED BLOOD COUNT 2.96 X10'6 (4.70-6.10); RED CELL DISTRIBUTION WIDTH 16.6 % (11.5-14.5); WHITE BLOOD COUNT 14.3 X10'3 (4.5-11.0)
[2018-07-13 12:42] LABS: PLATELET ESTIMATE NORMAL; TOTAL CELLS COUNTED 100
[2018-07-13 12:43] LABS: ANISOCYTOSIS 1+
[2018-07-13] MEDS ORDERED: LIDOcaine 1%/PF 5ML 10 MG/ML VIAL SQ ONE (14:55)
[2018-07-13] MEDS ORDERED: heparin 1,000 units/ml 10ml inj ICATH ONE (14:55)
[2018-07-13] MEDS ORDERED: fentaNYL/PF 50MCG/1 ML 2ML syringe IV PRN (14:55)
[2018-07-13] MEDS ORDERED: midazolam 2 mg/2 ml injection IV PRN (14:55)
[2018-07-13] MEDS ORDERED: LIDOcaine 1%/PF 5ML 10 MG/ML VIAL ONE (14:59)
--- NOTE | 2018-07-13 15:12 | NUR ---
Patient to IR for TDC placement
[2018-07-13] MEDS ORDERED: heparin 1,000unit/ml 10ml vial 10 ML ONE (15:21)
[2018-07-13 17:52] LABS: HEMATOCRIT 24.8 % (42.0-52.0); HEMOGLOBIN 8.1 g/dl (14.0-17.9); MEAN CORPUSCULAR HEMOGLOBIN 27.6 PG (27.0-31.0); MEAN CORPUSCULAR HGB CONC 32.7 g/dL (33.0-36.5); MEAN CORPUSCULAR VOLUME 84.5 FL (78-98); MEAN PLATELET VOLUME 7.9 FL (7.4-10.4); PLATELET COUNT 207 X10'3 (140-440); RED BLOOD COUNT 2.94 X10'6 (4.70-6.10); RED CELL DISTRIBUTION WIDTH 16.7 % (11.5-14.5); WHITE BLOOD COUNT 13.3 X10'3 (4.5-11.0)
--- NOTE | 2018-07-13 18:50 | NUR ---
Spoke with Dr. Mendiola this morning about patient's bleeding continuous bleeding from R. AKA surgical site; he requested to place wound vac, but wound care nurse felt it was still oozing too much. Per Dr. Mendiola, he will be in tomorrow morning to finish the leg and to reinforce as needed. Serial hemograms q6h to monitor blood loss. Patient on levophed and required RN to increase dose once from 3mcg to 5mcg as MAP dropped to 57. Temporary dialysis catheter placed instead of TDC as patient has positive blood cultures; tag clerk to start dialysis this evening. Left lower extremity wrapped in gauze/coban; upon further investigation, patient visits the outpt wound clinic weekly for "compression wraps" secondary to CHF/Edema and to prevent blisters; spoke with outpt wound care nurse who recommends to keep open to air unless blisters present; otherwise use xeroform/kerlix and change q3Days or PRN. Upon taking old dressing off, patient's skin looks clean and intact. Leg cleaned with NSS and left open to air. Patient report given to Mac RN with all questions answered.
[2018-07-13] MEDS: insulin glargine (Lantus) pen - multi-dose SQ SCH (21:00)
[2018-07-14] VITALS (26 sets, daily range): BP systolic 84–109; BP diastolic 50–76
[2018-07-14] MEDS: piperacillin/tazo 3.375gm/50ml 50 ML IV SCH ×2 (01:00→14:39)
[2018-07-14 02:12] LABS: BASOPHILS % (AUTO) 0.2 % (0-1); EOSINOPHILS # (AUTO) 0.2 X10'3 (0-0.9); EOSINOPHILS % (AUTO) 1.7 % (0-6); HEMATOCRIT 24.8 % (42.0-52.0); HEMOGLOBIN 8.2 g/dl (14.0-17.9); LYMPHOCYTES # (AUTO) 0.8 X10'3 (1.1-4.8); LYMPHOCYTES % (AUTO) 5.7 % (21-51); MEAN CORPUSCULAR HEMOGLOBIN 27.4 PG (27.0-31.0); MEAN CORPUSCULAR HGB CONC 33.2 g/dL (33.0-36.5); MEAN CORPUSCULAR VOLUME 82.6 FL (78-98); MONOCYTES # (AUTO) 0.7 X10'3 (0-0.9); MONOCYTES % (AUTO) 5.2 % (2-12); NEUTROPHILS # (AUTO) 12.6 X10'3 (1.8-7.7); NEUTROPHILS % (AUTO) 87.2 % (42-75); PLATELET COUNT 211 X10'3 (140-440); RED CELL DISTRIBUTION WIDTH 16.9 % (11.5-14.5); WHITE BLOOD COUNT 14.5 X10'3 (4.5-11.0)
[2018-07-14 02:25] LABS: ALANINE AMINOTRANSFERASE 13 U/L (12-78); ALBUMIN 1.5 G/DL (3.4-5.0); ALBUMIN/GLOBULIN RATIO 0.4 (1.1-1.5); ALKALINE PHOSPHATASE 81 IU/L (46-116); ANION GAP 8 (8-16); ASPARTATE AMINO TRANSFERASE 22 U/L (10-37); BILIRUBIN,TOTAL 1.7 MG/DL (0.1-1.0); BLOOD UREA NITROGEN 61 MG/DL (7-18); BUN/CREATININE RATIO 15.1 (5.4-32.0); CALCIUM 7.7 MG/DL (8.5-10.1); CHLORIDE 102 MMOL/L (99-107); CREATININE 4.04 MG/DL (0.60-1.10); GLUCOSE 75 MG/DL (70-104); POTASSIUM 4.9 MMOL/L (3.5-5.1); SODIUM 135 MMOL/L (135-145); TOTAL CARBON DIOXIDE 25.4 MMOL/L (24-32); TOTAL PROTEIN 5.6 G/DL (6.4-8.2); eGFR 15 ML/MIN
[2018-07-14] MEDS: clindamycin-Cleocin 900mg/D5W 50 ML IV SCH ×3 (05:26→20:30)
[2018-07-14] MEDS: DOBUTamine-DoBUTrex 500mg/D5W 250 ML IV SCH (05:38)
[2018-07-14 06:18] LABS: HEMATOCRIT 24.1 % (42.0-52.0); HEMOGLOBIN 7.9 g/dl (14.0-17.9); MEAN CORPUSCULAR HEMOGLOBIN 27.3 PG (27.0-31.0); MEAN CORPUSCULAR HGB CONC 32.7 g/dL (33.0-36.5); MEAN CORPUSCULAR VOLUME 83.4 FL (78-98); MEAN PLATELET VOLUME 7.7 FL (7.4-10.4); PLATELET COUNT 208 X10'3 (140-440); RED BLOOD COUNT 2.89 X10'6 (4.70-6.10); RED CELL DISTRIBUTION WIDTH 16.8 % (11.5-14.5); WHITE BLOOD COUNT 13.9 X10'3 (4.5-11.0)
[2018-07-14] MEDS ORDERED: epoetin 20,000 units/ml inj IV ONE (08:00)
[2018-07-14] MEDS: lactobacillus rhamnosus 10,000 MMU CELLS/CAPSULE PO SCH ×2 (08:00→20:30)
[2018-07-14] MEDS ORDERED: heparin 1,000 units/ml 10ml inj HE ONE ×2 (08:00)
[2018-07-14] MEDS: aspirin 81mg tab.chew PO SCH (08:00)
[2018-07-14] MEDS: K and/or MAG REPLACEMENT MC SCH (08:00)
[2018-07-14] MEDS ORDERED: heparin 1,000unit/ml 10ml vial 10 ML IV ONE (08:00)
[2018-07-14] MEDS ORDERED: normal saline 1000ml 250 ML IV PRN (08:00)
[2018-07-14] MEDS: isosorbide mononitrate 30mg tab.SR.24H PO SCH (08:00)
[2018-07-14] MEDS: ondansetron/PF 4mg/2ml inj IV PRN (08:53)
[2018-07-14] MEDS ORDERED: ringers solution, lacted 1,000 ML IV SCH (09:37)
[2018-07-14] MEDS ORDERED: ondansetron/PF 4mg/2ml inj IV PRN (09:40)
[2018-07-14] MEDS ORDERED: fentaNYL/PF 50MCG/1 ML 2ML syringe IV PRN ×2 (09:40)
[2018-07-14] MEDS ORDERED: hydrALAZINE 20mg/ml inj. IV PRN (09:40)
[2018-07-14] MEDS ORDERED: morphine 4 MG/ML inj SYRINge IV PRN ×2 (09:40)
[2018-07-14] MEDS ORDERED: enalaprilat dihydrate 2.5mg/2ml vial IV PRN (09:40)
[2018-07-14] MEDS ORDERED: fentaNYL/PF 50MCG/1 ML 2ML syringe ONE (09:49)
[2018-07-14] MEDS ORDERED: midazolam 2 mg/2 ml injection ONE (09:49)
[2018-07-14] MEDS ORDERED: etomidate 2mg/ml inj. ONE ×2 (09:50→11:58)
[2018-07-14] MEDS ORDERED: NORepinephrine bitartrate 8 MG in NS 250 ML BAG (32 mcg/ml) IV ONE (09:50)
[2018-07-14] MEDS ORDERED: sevoflurane 250ml liquid IH ONE (09:50)
--- NOTE | 2018-07-14 09:52 | NUR ---
Patient to OR; at bedside.
--- NOTE | 2018-07-14 10:35 | NUR ---
Reassessment: Pt with recent decrease in PO intake with documented average 0-25% with refusals not meeting nutrient needs. No documented intake of ONS. Pt in surgery waiting room pending I&D with wound VAC placement to rt REBEKAH ross. Per MD notes pt to get a dialysis catheter placed and start dialysis d/t poor urine output and increasing creatinine. LBM 07/12. Will continue to follow. Recommendations: 1) Continue with heart healthy/CHO controlled/[facility] soft diet 2) ensure high protein TIDWM 3) DM ed prior to d/c 4) Wt per rx Addendum: 07/14/18 at [address] Amended: Links added.
--- NOTE | 2018-07-14 10:45 | NUR ---
Patient back from OR after right AKA closed. Patient with mod sedation and sleeping, able to arrouse upon verbal stimulation. Levophed increased to 11mcg during procedure. Family at bedside. Vital signs otherwise stable.
[2018-07-14 12:56] LABS: HEMATOCRIT 24.5 % (42.0-52.0); HEMOGLOBIN 8.1 g/dl (14.0-17.9); MEAN CORPUSCULAR HEMOGLOBIN 27.7 PG (27.0-31.0); MEAN CORPUSCULAR VOLUME 83.7 FL (78-98); MEAN PLATELET VOLUME 8.1 FL (7.4-10.4); PLATELET COUNT 238 X10'3 (140-440); RED BLOOD COUNT 2.93 X10'6 (4.70-6.10); RED CELL DISTRIBUTION WIDTH 16.6 % (11.5-14.5); WHITE BLOOD COUNT 16.6 X10'3 (4.5-11.0)
--- NOTE | 2018-07-14 17:35 | NUR ---
Patient remains fatigued and drowsy since surgery; however, he is easily arousable and vital signs remain stable. Able to wean Levophed from 13mcg to 6mcg. During lunch, patient took a couple bites but refused otherwise. Educated on the importance of proper nutrition in the healing process. Dialysis nurse at the bedside.
[2018-07-14 17:56] LABS: HEMATOCRIT 24.1 % (42.0-52.0); HEMOGLOBIN 7.8 g/dl (14.0-17.9); MEAN CORPUSCULAR HEMOGLOBIN 27.5 PG (27.0-31.0); MEAN CORPUSCULAR HGB CONC 32.5 g/dL (33.0-36.5); MEAN CORPUSCULAR VOLUME 84.5 FL (78-98); PLATELET COUNT 197 X10'3 (140-440); RED BLOOD COUNT 2.86 X10'6 (4.70-6.10); WHITE BLOOD COUNT 11.4 X10'3 (4.5-11.0)
--- NOTE | 2018-07-14 18:35 | NUR ---
Problems reprioritized. Patient report given, questions answered & plan of care reviewed with Mac RN.
[2018-07-14] MEDS: NORepinephrine 8mg/ 250ml NS 250 ML IV PRN (20:08)
[2018-07-14] MEDS: insulin glargine (Lantus) pen - multi-dose SQ SCH (20:35)
[2018-07-14] MEDS: HYDROmorphone 1 mg/ml syringe IV PRN (21:27)
[2018-07-14] MEDS: normal saline 1000ml 1,000 ML IV SCH (22:57)
[2018-07-15] VITALS (24 sets, daily range): BP systolic 83–108; BP diastolic 50–73
[2018-07-15] MEDS: DOBUTamine-DoBUTrex 500mg/D5W 250 ML IV SCH (00:48)
[2018-07-15] MEDS: piperacillin/tazo 3.375gm/50ml 50 ML IV SCH ×2 (00:48→13:50)
[2018-07-15 03:40] LABS: ALANINE AMINOTRANSFERASE 9 U/L (12-78); ALBUMIN 1.6 G/DL (3.4-5.0); ALBUMIN/GLOBULIN RATIO 0.4 (1.1-1.5); ALKALINE PHOSPHATASE 81 IU/L (46-116); ANION GAP 10 (8-16); ASPARTATE AMINO TRANSFERASE 26 U/L (10-37); BLOOD UREA NITROGEN 47 MG/DL (7-18); BUN/CREATININE RATIO 12.9 (5.4-32.0); CHLORIDE 100 MMOL/L (99-107); CREATININE 3.65 MG/DL (0.60-1.10); GLUCOSE 91 MG/DL (70-104); POTASSIUM 4.9 MMOL/L (3.5-5.1); SODIUM 136 MMOL/L (135-145); TOTAL CARBON DIOXIDE 25.7 MMOL/L (24-32); TOTAL PROTEIN 5.9 G/DL (6.4-8.2); eGFR 17 ML/MIN
[2018-07-15 03:47] LABS: BASOPHILS % (AUTO) 0.3 % (0-1); EOSINOPHILS # (AUTO) 0.2 X10'3 (0-0.9); EOSINOPHILS % (AUTO) 1.1 % (0-6); HEMATOCRIT 23.9 % (42.0-52.0); HEMOGLOBIN 7.9 g/dl (14.0-17.9); LYMPHOCYTES # (AUTO) 0.9 X10'3 (1.1-4.8); LYMPHOCYTES % (AUTO) 5.1 % (21-51); MEAN CORPUSCULAR HEMOGLOBIN 27.7 PG (27.0-31.0); MEAN CORPUSCULAR HGB CONC 32.9 g/dL (33.0-36.5); MONOCYTES # (AUTO) 0.8 X10'3 (0-0.9); NEUTROPHILS # (AUTO) 14.9 X10'3 (1.8-7.7); NEUTROPHILS % (AUTO) 88.5 % (42-75); PLATELET COUNT 237 X10'3 (140-440); RED BLOOD COUNT 2.85 X10'6 (4.70-6.10); RED CELL DISTRIBUTION WIDTH 16.7 % (11.5-14.5); WHITE BLOOD COUNT 16.8 X10'3 (4.5-11.0)
--- NOTE | 2018-07-15 04:30 | NUR ---
RN Note -MD Communication/ Nutrition Called Chevy Dodd because has not been eating or drinking for several days, refuses protein drinks, did not even drink water water for me tonight. Pt is increasingly more obtunded and restless. Received order for nutrition consult.
[2018-07-15] MEDS: clindamycin-Cleocin 900mg/D5W 50 ML IV SCH ×3 (05:00→21:31)
--- NOTE | 2018-07-15 06:30 | NUR ---
Patient in room ICU 2045. I have received report from KALANI Luis and had the opportunity to ask questions and assume patient care.
[2018-07-15] MEDS: NORepinephrine 8mg/ 250ml NS 250 ML IV PRN ×2 (06:41→19:27)
[2018-07-15] MEDS: aspirin 81mg tab.chew PO SCH (08:00)
[2018-07-15] MEDS: lactobacillus rhamnosus 10,000 MMU CELLS/CAPSULE PO SCH ×2 (08:00→20:00)
[2018-07-15] MEDS: isosorbide mononitrate 30mg tab.SR.24H PO SCH (08:00)
[2018-07-15] MEDS: K and/or MAG REPLACEMENT MC SCH (08:11)
--- NOTE | 2018-07-15 08:12 | NUR ---
Pt is drowsy. Refusing water. Offered applesauce. Pt ate one spoonful and refused another. He began coughing soon afterwards.
[2018-07-15] MEDS ORDERED: VANCOMYCIN LEVEL IV ONE (09:30)
[2018-07-15 09:40] LABS: OXYGEN SATURATION (MIXED VEN) 68.5 % (60-80); PO2 MIXED VENOUS (TEMP COR) 38.7 mmHg (35-46)
--- NOTE | 2018-07-15 13:15 | NUR ---
Nutrition consult re: "pt has no appetite, refusing protein shakes, diabetic, wounds". Pt already given DM and protein education. Pt seen at bedside. RD encouraged PO intake and discussed ONS with pt. Pt currently receiving Ensure High Protein however pt would benefit from Ensure Enlive to provide additional kcal d/t pt with poor PO intake, d/w RN. Pt with poor concentration during RD visit. Pt documented as confused and A/O x 2 per physical assessment. Per RN pt coughed after eating applesauce this morning and patient's ability to eat fluctuates with delirium. RD consulted ST for BSS eval to determine if current mech soft with thin liquids remains appropriate for pt. Will continue to follow. Recommendations: 1) Continue with heart healthy/CHO controlled/mech soft diet with alterations if needed per BLOCK SEALER recs pending BSS 2) Ensure Enlive TIDWM 3) Encourage PO intake 4) Wt per rx Addendum: 07/15/18 at [address] Amended: Links added.
--- NOTE | 2018-07-15 18:18 | NUR ---
Problems reprioritized. Patient report given, questions answered & plan of care reviewed with KALANI Celeste.
--- NOTE | 2018-07-15 18:30 | NUR ---
Patient in room ICU 2045. I have received report from Jarred URIARTE and had the opportunity to ask questions and assume patient care.
[2018-07-15] MEDS: normal saline 1000ml 1,000 ML IV SCH (19:27)
[2018-07-15] MEDS: insulin glargine (Lantus) pen - multi-dose SQ SCH (20:13)
[2018-07-16] VITALS (24 sets, daily range): BP systolic 81–105; BP diastolic 42–66
[2018-07-16] MEDS: piperacillin/tazo 3.375gm/50ml 50 ML IV SCH ×2 (00:32→14:38)
[2018-07-16 02:34] LABS: BASOPHILS # (AUTO) 0.1 X10'3 (0-0.2); BASOPHILS % (AUTO) 0.4 % (0-1); EOSINOPHILS % (AUTO) 0.2 % (0-6); HEMOGLOBIN 7.3 g/dl (14.0-17.9); LYMPHOCYTES % (AUTO) 4.9 % (21-51); MEAN CORPUSCULAR HEMOGLOBIN 27.5 PG (27.0-31.0); MEAN CORPUSCULAR VOLUME 86.2 FL (78-98); MONOCYTES # (AUTO) 0.5 X10'3 (0-0.9); MONOCYTES % (AUTO) 2.4 % (2-12); NEUTROPHILS # (AUTO) 19.1 X10'3 (1.8-7.7); NEUTROPHILS % (AUTO) 92.1 % (42-75); PLATELET COUNT 249 X10'3 (140-440); RED BLOOD COUNT 2.67 X10'6 (4.70-6.10); RED CELL DISTRIBUTION WIDTH 17.5 % (11.5-14.5); WHITE BLOOD COUNT 20.7 X10'3 (4.5-11.0)
[2018-07-16 02:45] LABS: ALANINE AMINOTRANSFERASE 11 U/L (12-78); ALBUMIN 1.5 G/DL (3.4-5.0); ALBUMIN/GLOBULIN RATIO 0.3 (1.1-1.5); ALKALINE PHOSPHATASE 72 IU/L (46-116); ANION GAP 16 (8-16); ASPARTATE AMINO TRANSFERASE 24 U/L (10-37); BILIRUBIN,TOTAL 2.2 MG/DL (0.1-1.0); BLOOD UREA NITROGEN 53 MG/DL (7-18); CALCIUM 7.9 MG/DL (8.5-10.1); CHLORIDE 99 MMOL/L (99-107); CREATININE 4.43 MG/DL (0.60-1.10); POTASSIUM 5.6 MMOL/L (3.5-5.1); SODIUM 134 MMOL/L (135-145); TOTAL CARBON DIOXIDE 18.9 MMOL/L (24-32); TOTAL PROTEIN 5.8 G/DL (6.4-8.2); eGFR 13 ML/MIN
[2018-07-16 02:49] LABS: GLUCOSE 147 MG/DL (70-104)
[2018-07-16 03:27] LABS: MAGNESIUM 1.9 MG/DL (1.5-2.4); PHOSPHORUS 6.9 MG/DL (2.3-4.5)
[2018-07-16] MEDS: clindamycin-Cleocin 900mg/D5W 50 ML IV SCH ×3 (05:00→22:10)
[2018-07-16 05:55] LABS: TOTAL CELLS COUNTED 100
[2018-07-16 06:00] LABS: HYPOCHROMASIA 1+; PLATELET ESTIMATE NORMAL
[2018-07-16] MEDS: NORepinephrine 8mg/ 250ml NS 250 ML IV PRN ×2 (06:04→14:39)
--- NOTE | 2018-07-16 06:17 | NUR ---
Problems reprioritized. Patient report given, questions answered & plan of care reviewed with KALANI Stern.
--- NOTE | 2018-07-16 06:30 | NUR ---
Reviewed Charting by [place] URIARTE. Report given to Oncoming shift.
--- NOTE | 2018-07-16 06:30 | NUR ---
Patient in room ICU 2045. I have received report from KALANI Celeste and had the opportunity to ask questions and assume patient care.
[2018-07-16] MEDS ORDERED: heparin 1,000unit/ml 10ml vial 10 ML IV ONE (08:00)
[2018-07-16] MEDS ORDERED: normal saline 1000ml 250 ML IV PRN (08:00)
[2018-07-16] MEDS: lactobacillus rhamnosus 10,000 MMU CELLS/CAPSULE PO SCH ×2 (08:00→22:10)
[2018-07-16] MEDS: aspirin 81mg tab.chew PO SCH (08:00)
[2018-07-16] MEDS ORDERED: heparin 1,000 units/ml 10ml inj HE ONE ×2 (08:00)
[2018-07-16] MEDS ORDERED: epoetin 20,000 units/ml inj IV ONE (08:00)
[2018-07-16] MEDS: isosorbide mononitrate 30mg tab.SR.24H PO SCH (08:00)
[2018-07-16] MEDS: K and/or MAG REPLACEMENT MC SCH (08:43)
--- NOTE | 2018-07-16 09:40 | NUR ---
HD run started.
[2018-07-16] MEDS ORDERED: vancomycin/NS 1 GM ADD-VANTAGE 250 ML X 1 DOSE IV SCH (10:00)
--- NOTE | 2018-07-16 12:30 | NUR ---
HD run complete. 1 L off.
--- NOTE | 2018-07-16 12:49 | NUR ---
Reassessment: Patient is s/p right AKA 07/12 and washout, drainage with closure of AKA stump on 07/14. Previous consult address regarding "pt has no appetite, refusing protein shakes, diabetic, wounds". Pt has been given DM and high protein education related to wound heal. Pt seen at bedside again and RD encouraged PO intake and discussed ONS with pt. Pt currently receiving Ensure High Protein however pt would benefit from Ensure Enlive to provide additional kcal d/t pt with poor PO intake, d/w RN. Pt with poor concentration during RD visit. Pt documented as confused and A/O x 2 per physical assessment. Per RN pt coughed after eating applesauce this morning and patient's ability to eat fluctuates with delirium. RD consulted ST for BSS eval to determine if current mech soft with thin liquids remains appropriate for pt, swallow eval is currently pending. No bowel movement since admission 10 days ago. Not receiving any bowel care and no prn bowel care on med list. Patient also receiving opiate agonists. Discussed with RN on providing patient with prune juice pending his swallow evaluation and the NURSE CHARGE RN recommendation of fluid and food texture. Receiving third round of HD today. Will continue to follow. Recommendations: 1) Continue with heart healthy/CHO controlled/mech soft diet with additional texture alterations if needed per NURSE CHARGE RN recs pending BSS 2) Ensure Enlive TIDWM 3) Encourage PO intake 4) Wt per rx 5) Patient needs bowel care, no BM for 10 days discussed with RN and provide prune juice pending BSS Addendum: 07/16/18 at [address] Amended: Links added.
--- NOTE | 2018-07-16 18:40 | NUR ---
Received patient report from Vani URIARTE.
--- NOTE | 2018-07-16 18:40 | NUR ---
Problems reprioritized. Patient report given, questions answered & plan of care reviewed with KALANI Braun.
--- NOTE | 2018-07-16 20:58 | NUR ---
patient's current blood sugar 147. Pt. has not received insulin in three days. Consulted battery charger conveyor line, will restart hyperglycemic protocol when appropriate.
[2018-07-16] MEDS: insulin glargine (Lantus) pen - multi-dose SQ SCH (21:00)
--- NOTE | 2018-07-16 21:45 | NUR ---
unable to hear left DP pulse with doppler. left popliteal pulse palpable. Left foot slightly cooler than thigh with pitting edema. Cap refill present. Notified Yousif BRADLEY
[2018-07-16] MEDS ORDERED: bisacodyl 10mg suppository rectal RC PRN (22:00)
[2018-07-16] MEDS: magnesium hydroxide 30ml (MOM) UD suspension PO PRN (22:10)
[2018-07-16] MEDS: normal saline 1000ml 1,000 ML IV SCH (22:57)
[2018-07-17] VITALS (24 sets, daily range): BP systolic 80–113; BP diastolic 45–80
[2018-07-17] MEDS: piperacillin/tazo 3.375gm/50ml 50 ML IV SCH ×2 (01:40→14:01)
[2018-07-17] MEDS: NORepinephrine 8mg/ 250ml NS 250 ML IV PRN ×2 (02:14→14:35)
[2018-07-17 03:39] LABS: BASOPHILS % (AUTO) 0.1 % (0-1); EOSINOPHILS % (AUTO) 0.1 % (0-6); HEMATOCRIT 23.7 % (42.0-52.0); HEMOGLOBIN 7.6 g/dl (14.0-17.9); LYMPHOCYTES # (AUTO) 0.9 X10'3 (1.1-4.8); LYMPHOCYTES % (AUTO) 4.3 % (21-51); MEAN CORPUSCULAR HEMOGLOBIN 27.9 PG (27.0-31.0); MEAN CORPUSCULAR HGB CONC 32.2 g/dL (33.0-36.5); MEAN CORPUSCULAR VOLUME 86.5 FL (78-98); MEAN PLATELET VOLUME 8.1 FL (7.4-10.4); MONOCYTES # (AUTO) 0.7 X10'3 (0-0.9); MONOCYTES % (AUTO) 3.3 % (2-12); NEUTROPHILS # (AUTO) 18.9 X10'3 (1.8-7.7); NEUTROPHILS % (AUTO) 92.2 % (42-75); PLATELET COUNT 270 X10'3 (140-440); RED BLOOD COUNT 2.74 X10'6 (4.70-6.10); RED CELL DISTRIBUTION WIDTH 17.5 % (11.5-14.5); WHITE BLOOD COUNT 20.5 X10'3 (4.5-11.0)
[2018-07-17 03:47] LABS: ALANINE AMINOTRANSFERASE 8 U/L (12-78); ALBUMIN 1.5 G/DL (3.4-5.0); ALBUMIN/GLOBULIN RATIO 0.3 (1.1-1.5); ALKALINE PHOSPHATASE 76 IU/L (46-116); ANION GAP 21 (8-16); ASPARTATE AMINO TRANSFERASE 18 U/L (10-37); BILIRUBIN,TOTAL 2.1 MG/DL (0.1-1.0); BLOOD UREA NITROGEN 38 MG/DL (7-18); BUN/CREATININE RATIO 10.8 (5.4-32.0); CALCIUM 8.2 MG/DL (8.5-10.1); CHLORIDE 98 MMOL/L (99-107); CREATININE 3.51 MG/DL (0.60-1.10); POTASSIUM 4.9 MMOL/L (3.5-5.1); SODIUM 136 MMOL/L (135-145); TOTAL CARBON DIOXIDE 17.5 MMOL/L (24-32); TOTAL PROTEIN 5.8 G/DL (6.4-8.2); eGFR 18 ML/MIN
[2018-07-17 03:48] LABS: GLUCOSE 166 MG/DL (70-104)
[2018-07-17] MEDS: clindamycin-Cleocin 900mg/D5W 50 ML IV SCH ×3 (05:18→21:13)
--- NOTE | 2018-07-17 06:15 | NUR ---
Pt. report given to Jarred URIARTE
--- NOTE | 2018-07-17 06:22 | NUR ---
Patient in room ICU 2045. I have received report from KALANI Mohan and had the opportunity to ask questions and assume patient care.
[2018-07-17 07:13] LABS: HBSAG SCREEN Negative (Negative)
[2018-07-17 07:28] LABS: ANISOCYTOSIS 1+; PLATELET ESTIMATE NORMAL; TOTAL CELLS COUNTED 100
[2018-07-17 07:29] LABS: POLYCHROMASIA 1+
[2018-07-17] MEDS: K and/or MAG REPLACEMENT MC SCH (08:00)
[2018-07-17] MEDS: aspirin 81mg tab.chew PO SCH (08:45)
[2018-07-17] MEDS: isosorbide mononitrate 30mg tab.SR.24H PO SCH (08:45)
[2018-07-17] MEDS: lactobacillus rhamnosus 10,000 MMU CELLS/CAPSULE PO SCH ×2 (08:45→20:00)
--- NOTE | 2018-07-17 13:22 | NUR ---
Reassessment: BSS done by HAIRCUTTER, recommends pureed food and honey thick liquids. Discussed with RN to d/c oral supplement as it is not thickened. Patient is s/p right AKA 07/12 and washout, drainage with closure of AKA stump on 07/14. Pt has been given DM and high protein education related to wound heal. Pt seen at bedside again and RD encouraged PO intake, pt with poor PO intake, d/w RN. Pt with poor concentration during RD visit. Pt documented as confused and A/O x 2 per physical assessment. No bowel movement since admission 10 days ago. Received one dose of milk of magnesia yesterday and has prn dulcolax, not given yet, discussed with RN 07/16 to recommend bowel care. Patient also receiving opiate agonists. Continues with HD. Recommend thickened protein supplement using magic cup and honey thick milk. instead of ensure, d/w dietary. Patient will benefit from tube feeding given his extremely poor PO intake for 9 days. Will continue to follow. Recommendations: 1) Continue with heart healthy/CHO controlled/pureed diet with honey thick liquids per HAIRCUTTER 2) Patient would benefit from tube feeding given poor PO Intake for 9 days and patient not able to meet needs PO possibly r/t confusion 3) Wt per rx 4) Patient needs bowel care, no BM for 11 days discussed with RN Addendum: 07/17/18 at [address] Amended: Links added.
[2018-07-17] MEDS: insulin Lispro (HumaLOG) vial - multi-dose SQ SCH ×2 (15:39→21:21)
--- NOTE | 2018-07-17 18:31 | NUR ---
Problems reprioritized. Patient report given, questions answered & plan of care reviewed with KALANI Martin.
--- NOTE | 2018-07-17 19:14 | NUR ---
Patient in room ICU 2045. I have received report from ОЛЕГ URIARTE and had the opportunity to ask questions and assume patient care. Patient resting in bed with eyes closd, on levophed 10mcg, NS at 20 mls/hr, vital signs stable will continue to monitor
[2018-07-17] MEDS: insulin glargine (Lantus) pen - multi-dose SQ SCH (21:20)
--- NOTE | 2018-07-17 21:25 | NUR ---
patient pulling leads off and scratching at IJ and Wilbur, reminded him that the leads need to stay on and that he can not pull or scratch at the lines in his neck, I asked him if he was in pain or uncomfortable and he stated that he was not, vital signs stable will continue to monitor
--- NOTE | 2018-07-17 22:25 | NUR ---
patient very agitated when I bathed him, he would not allow me to change the soiled bedding underneath him. Bedding appears to be soiled from the dressing change to his R AKA.
[2018-07-18] VITALS (33 sets, daily range): BP systolic 82–112; BP diastolic 48–71
[2018-07-18] MEDS: piperacillin/tazo 3.375gm/50ml 50 ML IV SCH ×2 (01:17→13:59)
[2018-07-18 02:20] LABS: BASOPHILS # (AUTO) 0.1 X10'3 (0-0.2); BASOPHILS % (AUTO) 0.4 % (0-1); EOSINOPHILS # (AUTO) 0.1 X10'3 (0-0.9); EOSINOPHILS % (AUTO) 0.6 % (0-6); HEMATOCRIT 22.5 % (42.0-52.0); HEMOGLOBIN 7.3 g/dl (14.0-17.9); LYMPHOCYTES # (AUTO) 0.8 X10'3 (1.1-4.8); LYMPHOCYTES % (AUTO) 5.5 % (21-51); MEAN CORPUSCULAR HEMOGLOBIN 28.2 PG (27.0-31.0); MEAN CORPUSCULAR HGB CONC 32.6 g/dL (33.0-36.5); MEAN CORPUSCULAR VOLUME 86.4 FL (78-98); MEAN PLATELET VOLUME 7.6 FL (7.4-10.4); MONOCYTES # (AUTO) 0.8 X10'3 (0-0.9); MONOCYTES % (AUTO) 5.8 % (2-12); NEUTROPHILS # (AUTO) 12.3 X10'3 (1.8-7.7); NEUTROPHILS % (AUTO) 87.7 % (42-75); PLATELET COUNT 272 X10'3 (140-440); RED CELL DISTRIBUTION WIDTH 17.1 % (11.5-14.5); WHITE BLOOD COUNT 14.1 X10'3 (4.5-11.0)
[2018-07-18 02:32] LABS: ALANINE AMINOTRANSFERASE 12 U/L (12-78); ALBUMIN 1.5 G/DL (3.4-5.0); ALBUMIN/GLOBULIN RATIO 0.3 (1.1-1.5); ALKALINE PHOSPHATASE 70 IU/L (46-116); ANION GAP 12 (8-16); ASPARTATE AMINO TRANSFERASE 19 U/L (10-37); BILIRUBIN,TOTAL 1.6 MG/DL (0.1-1.0); BLOOD UREA NITROGEN 45 MG/DL (7-18); BUN/CREATININE RATIO 10.2 (5.4-32.0); CALCIUM 7.8 MG/DL (8.5-10.1); CHLORIDE 100 MMOL/L (99-107); POTASSIUM 4.6 MMOL/L (3.5-5.1); SODIUM 136 MMOL/L (135-145); TOTAL CARBON DIOXIDE 23.7 MMOL/L (24-32); TOTAL PROTEIN 5.8 G/DL (6.4-8.2); eGFR 14 ML/MIN
[2018-07-18 02:41] LABS: GLUCOSE 166 MG/DL (70-104)
--- NOTE | 2018-07-18 04:45 | NUR ---
patient again pulling his leads off and this time pulled the dressing off of his sarah, changed the dressing on the sarah, during the dressing changed he tried to pull the mask off and reach for the sarah line, again had to remind him that he can not touch either lines in his neck. Again addressed his comfort, he denied and discomfort, stated that he had no pain.
[2018-07-18] MEDS: NORepinephrine 8mg/ 250ml NS 250 ML IV PRN (05:04)
--- NOTE | 2018-07-18 06:24 | NUR ---
Problems reprioritized. Patient report given, questions answered & plan of care reviewed with Keren URIARTE.
--- NOTE | 2018-07-18 06:32 | NUR ---
Patient in room ICU 2045. I have received report from KALANI Martin and had the opportunity to ask questions and assume patient care.
[2018-07-18] MEDS: lactobacillus rhamnosus 10,000 MMU CELLS/CAPSULE PO SCH ×2 (07:25→20:00)
[2018-07-18] MEDS: aspirin 81mg tab.chew PO SCH (07:25)
[2018-07-18] MEDS: isosorbide mononitrate 30mg tab.SR.24H PO SCH (07:25)
[2018-07-18] MEDS ORDERED: heparin 1,000unit/ml 10ml vial 10 ML IV ONE (08:00)
[2018-07-18] MEDS ORDERED: epoetin 20,000 units/ml inj IV ONE (08:00)
[2018-07-18] MEDS ORDERED: heparin 1,000 units/ml 10ml inj HE ONE ×2 (08:00)
[2018-07-18] MEDS ORDERED: normal saline 1000ml 250 ML IV PRN (08:00)
[2018-07-18] MEDS: K and/or MAG REPLACEMENT MC SCH (08:00)
[2018-07-18] MEDS ORDERED: sodium phosphate inj. 30 MMOL in normal saline 250ml IV soln 250 ML IV PRN (09:00)
[2018-07-18] MEDS ORDERED: calcium chloride inj. 1,000 MG in normal saline 100ml IV soln 100 ML IV PRN (09:00)
[2018-07-18] MEDS ORDERED: magnesium 4gm in 100ml NS 100 ML IV PRN (09:00)
[2018-07-18] MEDS ORDERED: potassium Cl 20mEq/100mL bag 100 ML IV PRN (09:00)
[2018-07-18] MEDS: Duosol 4K/3 Ca (w/calcium) 5,000 ML HE SCH ×7 (10:00→23:19)
[2018-07-18] MEDS: methylnaltrexone br 12mg/0.6ml inj***SubQ only SQ SCH (10:53)
[2018-07-18] MEDS ORDERED: lactulose 20gm/30ml cup PO PRN (10:55)
--- NOTE | 2018-07-18 11:00 | NUR ---
Pt taken to CT and back without complications. Now to be started on CVVH. Report given to KALANI Cameron
--- NOTE | 2018-07-18 11:42 | NUR ---
reassessment: Pt low PO 7 days and not oriented per RN. No significant BM since 07/09 per RN; lactulose and relistor to start today per MD. NGTF via corpak to start today per MD given low PO hx, fluid overload to start CVVH today, and wound healing needs s/p AKA. Pt able to swallow but just not taking PO per RN. Pending tube feed consult; recs below. Recommendations: 1) NGTF via corpak using Vital High Protein at 80ml/hr goal; to provide 2040ml fluid, 2040kcals, and 179g protein. Initiate at 20ml/hr goal and advance 20ml Q8 to goal as tolerated. 2) water flushes per heading saw operator 3) prealbumin Q /, daily wts 4) routine bowel care 5) once PO;advance to heart healthy/CHO controlled/pureed diet with honey thick liquids per DIALYSIS CLINICAL MANAGER Addendum: 07/18/18 at [address] Amended: Links added. Addendum: 07/18/18 at [address] TF consult: NGTF to start today; recs below. reassessment: Pt low PO 7 days and not oriented per RN. No significant BM since 07/09 per RN; lactulose and relistor to start today per MD. NGTF via corpak to start today per MD given low PO hx, fluid overload to start CVVH today, and wound healing needs s/p AKA. Pt able to swallow but just not taking PO per RN. Pending tube feed consult; recs below. Recommendations: 1) NGTF via corpak using Vital High Protein at 80ml/hr goal; to provide 2040ml fluid, 2040kcals, and 179g protein. Initiate at 20ml/hr goal and advance 20ml Q8 to goal as tolerated. 2) water flushes per heading saw operator 3) prealbumin Q /, daily wts 4) routine bowel care 5) once PO;advance to heart healthy/CHO controlled/pureed diet with honey thick liquids per DIALYSIS CLINICAL MANAGER Addendum: 07/18/18 at [address] TF at 85 ml/hr goal
--- NOTE | 2018-07-18 12:15 | NUR ---
Patient in room ICU 2045. I have received report from Keren URIARTE and had the opportunity to ask questions and assume patient care.
[2018-07-18] MEDS ORDERED: insulin regular, human vial - multi-dose SQ SCH (12:55)
[2018-07-18 13:19] LABS: BASOPHILS # (AUTO) 0.1 X10'3 (0-0.2); BASOPHILS % (AUTO) 0.7 % (0-1); EOSINOPHILS # (AUTO) 0.1 X10'3 (0-0.9); EOSINOPHILS % (AUTO) 0.9 % (0-6); LYMPHOCYTES # (AUTO) 0.6 X10'3 (1.1-4.8); LYMPHOCYTES % (AUTO) 3.8 % (21-51); MEAN CORPUSCULAR HEMOGLOBIN 28.1 PG (27.0-31.0); MEAN CORPUSCULAR VOLUME 85.2 FL (78-98); MEAN PLATELET VOLUME 7.5 FL (7.4-10.4); MONOCYTES # (AUTO) 0.7 X10'3 (0-0.9); MONOCYTES % (AUTO) 4.6 % (2-12); NEUTROPHILS # (AUTO) 13.3 X10'3 (1.8-7.7); PLATELET COUNT 219 X10'3 (140-440); RED BLOOD COUNT 2.49 X10'6 (4.70-6.10); RED CELL DISTRIBUTION WIDTH 17.5 % (11.5-14.5); WHITE BLOOD COUNT 14.8 X10'3 (4.5-11.0)
[2018-07-18 13:27] LABS: HEMATOCRIT 21.3 % (42.0-52.0)
[2018-07-18 13:31] LABS: ALBUMIN 1.4 G/DL (3.4-5.0); ANION GAP 10 (8-16); BLOOD UREA NITROGEN 46 MG/DL (7-18); BUN/CREATININE RATIO 10.8 (5.4-32.0); CALCIUM 7.7 MG/DL (8.5-10.1); CHLORIDE 102 MMOL/L (99-107); CREATININE 4.27 MG/DL (0.60-1.10); GLUCOSE 162 MG/DL (70-104); PHOSPHORUS 5.5 MG/DL (2.3-4.5); POTASSIUM 4.6 MMOL/L (3.5-5.1); SODIUM 137 MMOL/L (135-145); TOTAL CARBON DIOXIDE 25.2 MMOL/L (24-32); eGFR 14 ML/MIN
[2018-07-18 14:40] LABS: BASOPHILS # (AUTO) 0.1 X10'3 (0-0.2); BASOPHILS % (AUTO) 0.5 % (0-1); EOSINOPHILS # (AUTO) 0.2 X10'3 (0-0.9); HEMOGLOBIN 7.1 g/dl (14.0-17.9); LYMPHOCYTES # (AUTO) 0.5 X10'3 (1.1-4.8); LYMPHOCYTES % (AUTO) 3.3 % (21-51); MEAN CORPUSCULAR HGB CONC 32.9 g/dL (33.0-36.5); MEAN CORPUSCULAR VOLUME 85.3 FL (78-98); MEAN PLATELET VOLUME 7.6 FL (7.4-10.4); MONOCYTES # (AUTO) 0.6 X10'3 (0-0.9); MONOCYTES % (AUTO) 4.2 % (2-12); NEUTROPHILS # (AUTO) 13.1 X10'3 (1.8-7.7); PLATELET COUNT 216 X10'3 (140-440); RED BLOOD COUNT 2.54 X10'6 (4.70-6.10); RED CELL DISTRIBUTION WIDTH 17.7 % (11.5-14.5); WHITE BLOOD COUNT 14.4 X10'3 (4.5-11.0)
--- NOTE | 2018-07-18 14:45 | NUR ---
Patient is refusing Corpak. Swings at the nurses when attempts are made to place it. He has been educated multiple times about the procedure and why he needs it. He says "absolutely NOT". The patient is confused and paranoid
[2018-07-18 14:46] LABS: HEMATOCRIT 21.7 % (42.0-52.0)
[2018-07-18 14:53] LABS: ALBUMIN 1.5 G/DL (3.4-5.0); ANION GAP 11 (8-16); BLOOD UREA NITROGEN 43 MG/DL (7-18); BUN/CREATININE RATIO 10.6 (5.4-32.0); CHLORIDE 101 MMOL/L (99-107); CREATININE 4.05 MG/DL (0.60-1.10); MAGNESIUM 2.1 MG/DL (1.5-2.4); PHOSPHORUS 5.2 MG/DL (2.3-4.5); POTASSIUM 4.7 MMOL/L (3.5-5.1); SODIUM 136 MMOL/L (135-145); TOTAL CARBON DIOXIDE 24.3 MMOL/L (24-32); eGFR 15 ML/MIN
[2018-07-18 14:54] LABS: GLUCOSE 158 MG/DL (70-104)
[2018-07-18 16:43] LABS: ALBUMIN 1.5 G/DL (3.4-5.0); ANION GAP 12 (8-16); BLOOD UREA NITROGEN 41 MG/DL (7-18); BUN/CREATININE RATIO 10.8 (5.4-32.0); CALCIUM 8.2 MG/DL (8.5-10.1); CHLORIDE 102 MMOL/L (99-107); CREATININE 3.79 MG/DL (0.60-1.10); MAGNESIUM 2.1 MG/DL (1.5-2.4); PHOSPHORUS 4.8 MG/DL (2.3-4.5); POTASSIUM 4.6 MMOL/L (3.5-5.1); SODIUM 136 MMOL/L (135-145); TOTAL CARBON DIOXIDE 21.7 MMOL/L (24-32); eGFR 16 ML/MIN
[2018-07-18 16:45] LABS: GLUCOSE 155 MG/DL (70-104)
--- NOTE | 2018-07-18 18:26 | NUR ---
Problems reprioritized. Patient report given, questions answered & plan of care reviewed with Priscila URIARTE.
--- NOTE | 2018-07-18 19:12 | NUR ---
183..Patient in room ICU 2045. I have received report from Guanako URIARTE and had the opportunity to ask questions and assume patient care.
--- NOTE | 2018-07-18 20:42 | NUR ---
1999..Assessment as noted. Pt refusing corpak to be placed at this time, remains npo. CVVH in progress, with no difficulties at this time.
[2018-07-18] MEDS: insulin glargine (Lantus) pen - multi-dose SQ SCH (21:00)
[2018-07-18 21:54] LABS: MEAN CORPUSCULAR HGB CONC 33.2 g/dL (33.0-36.5)
[2018-07-18 21:56] LABS: BASOPHILS % (AUTO) 0.2 % (0-1); EOSINOPHILS # (AUTO) 0.1 X10'3 (0-0.9); EOSINOPHILS % (AUTO) 0.7 % (0-6); LYMPHOCYTES # (AUTO) 0.5 X10'3 (1.1-4.8); LYMPHOCYTES % (AUTO) 3.7 % (21-51); MEAN CORPUSCULAR HEMOGLOBIN 28.4 PG (27.0-31.0); MEAN CORPUSCULAR VOLUME 85.3 FL (78-98); MEAN PLATELET VOLUME 7.6 FL (7.4-10.4); MONOCYTES # (AUTO) 0.3 X10'3 (0-0.9); MONOCYTES % (AUTO) 2.4 % (2-12); NEUTROPHILS # (AUTO) 13.3 X10'3 (1.8-7.7); PLATELET COUNT 204 X10'3 (140-440); RED BLOOD COUNT 3.17 X10'6 (4.70-6.10); RED CELL DISTRIBUTION WIDTH 17.6 % (11.5-14.5); WHITE BLOOD COUNT 14.3 X10'3 (4.5-11.0)
[2018-07-18 22:04] LABS: ALBUMIN 1.5 G/DL (3.4-5.0); ANION GAP 10 (8-16); BLOOD UREA NITROGEN 35 MG/DL (7-18); BUN/CREATININE RATIO 10.7 (5.4-32.0); CHLORIDE 103 MMOL/L (99-107); CREATININE 3.26 MG/DL (0.60-1.10); MAGNESIUM 1.9 MG/DL (1.5-2.4); PHOSPHORUS 4.2 MG/DL (2.3-4.5); POTASSIUM 4.5 MMOL/L (3.5-5.1); SODIUM 137 MMOL/L (135-145); TOTAL CARBON DIOXIDE 24.2 MMOL/L (24-32); eGFR 19 ML/MIN
[2018-07-18 22:18] LABS: GLUCOSE 149 MG/DL (70-104)
--- NOTE | 2018-07-18 22:59 | NUR ---
2200..CVVH machine\filter clotted off, blood returned to pt, air tank assembler notified.
[2018-07-18] MEDS: normal saline 1000ml 1,000 ML IV SCH (23:56)
--- NOTE | 2018-07-18 23:57 | NUR ---
2300..oracle financials consultant at bedside, no other changes noted.
[2018-07-19] VITALS (24 sets, daily range): BP systolic 91–119; BP diastolic 54–76
--- NOTE | 2018-07-19 01:10 | NUR ---
0100..CVVh running, pt resting quietly, no other changes noted.
[2018-07-19] MEDS: piperacillin/tazo 3.375gm/50ml 50 ML IV SCH ×3 (01:42→23:50)
[2018-07-19 02:56] LABS: BASOPHILS % (AUTO) 0.3 % (0-1); EOSINOPHILS # (AUTO) 0.1 X10'3 (0-0.9); EOSINOPHILS % (AUTO) 0.5 % (0-6); HEMATOCRIT 29.2 % (42.0-52.0); HEMOGLOBIN 9.8 g/dl (14.0-17.9); LYMPHOCYTES # (AUTO) 0.4 X10'3 (1.1-4.8); LYMPHOCYTES % (AUTO) 2.8 % (21-51); MEAN CORPUSCULAR HEMOGLOBIN 28.7 PG (27.0-31.0); MEAN CORPUSCULAR HGB CONC 33.5 g/dL (33.0-36.5); MEAN CORPUSCULAR VOLUME 85.8 FL (78-98); MEAN PLATELET VOLUME 7.7 FL (7.4-10.4); MONOCYTES # (AUTO) 0.5 X10'3 (0-0.9); MONOCYTES % (AUTO) 3.1 % (2-12); NEUTROPHILS # (AUTO) 13.7 X10'3 (1.8-7.7); NEUTROPHILS % (AUTO) 93.3 % (42-75); PLATELET COUNT 210 X10'3 (140-440); RED BLOOD COUNT 3.41 X10'6 (4.70-6.10); RED CELL DISTRIBUTION WIDTH 17.4 % (11.5-14.5); WHITE BLOOD COUNT 14.7 X10'3 (4.5-11.0)
--- NOTE | 2018-07-19 03:05 | NUR ---
0300..No changes noted.
[2018-07-19 03:25] LABS: ALANINE AMINOTRANSFERASE 15 U/L (12-78); ALBUMIN 1.5 G/DL (3.4-5.0); ALBUMIN/GLOBULIN RATIO 0.4 (1.1-1.5); ALKALINE PHOSPHATASE 74 IU/L (46-116); ANION GAP 15 (8-16); ASPARTATE AMINO TRANSFERASE 28 U/L (10-37); BILIRUBIN,TOTAL 2.2 MG/DL (0.1-1.0); BLOOD UREA NITROGEN 31 MG/DL (7-18); BUN/CREATININE RATIO 10.2 (5.4-32.0); CALCIUM 8.3 MG/DL (8.5-10.1); CHLORIDE 102 MMOL/L (99-107); CREATININE 3.04 MG/DL (0.60-1.10); GLUCOSE 154 MG/DL (70-104); MAGNESIUM 1.8 MG/DL (1.5-2.4); PHOSPHORUS 3.9 MG/DL (2.3-4.5); POTASSIUM 4.6 MMOL/L (3.5-5.1); PREALBUMIN 11.7 MG/DL (19-36); SODIUM 138 MMOL/L (135-145); TOTAL PROTEIN 5.6 G/DL (6.4-8.2); eGFR 21 ML/MIN
--- NOTE | 2018-07-19 04:10 | NUR ---
0400..CVVH continues with no problems, pt resting quietly eyes closed resp easy and nonlabored.
[2018-07-19] MEDS: Duosol 4K/3 Ca (w/calcium) 5,000 ML HE SCH ×4 (05:06→20:06)
--- NOTE | 2018-07-19 06:15 | NUR ---
Patient in room ICU 2045. I have received report from BAR HOST and had the opportunity to ask questions and assume patient care.
--- NOTE | 2018-07-19 06:20 | NUR ---
0620..Problems reprioritized. Patient report given, questions answered & plan of care reviewed with Danica URIARTE.
[2018-07-19] MEDS: lactobacillus rhamnosus 10,000 MMU CELLS/CAPSULE PO SCH ×2 (07:28→20:14)
[2018-07-19] MEDS: aspirin 81mg tab.chew PO SCH (07:28)
[2018-07-19] MEDS: isosorbide mononitrate 30mg tab.SR.24H PO SCH (07:29)
[2018-07-19] MEDS: K and/or MAG REPLACEMENT MC SCH (07:38)
[2018-07-19] MEDS ORDERED: VANCOMYCIN LEVEL IV ONE (09:30)
[2018-07-19] MEDS: NORepinephrine 8mg/ 250ml NS 250 ML IV PRN ×2 (09:32→16:44)
[2018-07-19 09:58] LABS: BASOPHILS % (AUTO) 0.3 % (0-1); EOSINOPHILS # (AUTO) 0.1 X10'3 (0-0.9); EOSINOPHILS % (AUTO) 0.4 % (0-6); HEMATOCRIT 30.1 % (42.0-52.0); HEMOGLOBIN 9.9 g/dl (14.0-17.9); LYMPHOCYTES # (AUTO) 0.4 X10'3 (1.1-4.8); LYMPHOCYTES % (AUTO) 3.1 % (21-51); MEAN CORPUSCULAR HEMOGLOBIN 28.7 PG (27.0-31.0); MEAN PLATELET VOLUME 7.7 FL (7.4-10.4); MONOCYTES # (AUTO) 0.4 X10'3 (0-0.9); MONOCYTES % (AUTO) 2.8 % (2-12); NEUTROPHILS # (AUTO) 11.7 X10'3 (1.8-7.7); NEUTROPHILS % (AUTO) 93.4 % (42-75); PLATELET COUNT 195 X10'3 (140-440); RED BLOOD COUNT 3.46 X10'6 (4.70-6.10); RED CELL DISTRIBUTION WIDTH 17.3 % (11.5-14.5); WHITE BLOOD COUNT 12.5 X10'3 (4.5-11.0)
[2018-07-19 10:07] LABS: ALBUMIN 1.4 G/DL (3.4-5.0); ANION GAP 13 (8-16); BLOOD UREA NITROGEN 25 MG/DL (7-18); BUN/CREATININE RATIO 9.9 (5.4-32.0); CALCIUM 8.1 MG/DL (8.5-10.1); CHLORIDE 103 MMOL/L (99-107); CREATININE 2.53 MG/DL (0.60-1.10); MAGNESIUM 1.7 MG/DL (1.5-2.4); PHOSPHORUS 3.5 MG/DL (2.3-4.5); POTASSIUM 4.6 MMOL/L (3.5-5.1); SODIUM 138 MMOL/L (135-145); TOTAL CARBON DIOXIDE 22.3 MMOL/L (24-32); eGFR 26 ML/MIN
[2018-07-19 10:09] LABS: GLUCOSE 141 MG/DL (70-104); INR 1.2 INR; PARTIAL THROMBOPLASTIN TIME 31 SECONDS (22-32)
[2018-07-19] MEDS: pantoprazole 40mg Tablet.DR PO SCH (13:20)
[2018-07-19] MEDS: heparin, porcine 5000 units/ml vial SQ SCH ×2 (13:21→20:14)
[2018-07-19 15:16] LABS: ALBUMIN 1.4 G/DL (3.4-5.0); ANION GAP 12 (8-16); BLOOD UREA NITROGEN 24 MG/DL (7-18); BUN/CREATININE RATIO 10.2 (5.4-32.0); CHLORIDE 103 MMOL/L (99-107); CREATININE 2.35 MG/DL (0.60-1.10); PHOSPHORUS 3.4 MG/DL (2.3-4.5); POTASSIUM 4.7 MMOL/L (3.5-5.1); SODIUM 137 MMOL/L (135-145); TOTAL CARBON DIOXIDE 22.4 MMOL/L (24-32); eGFR 28 ML/MIN
[2018-07-19 15:17] LABS: BASOPHILS # (AUTO) 0.1 X10'3 (0-0.2); BASOPHILS % (AUTO) 0.6 % (0-1); EOSINOPHILS # (AUTO) 0.1 X10'3 (0-0.9); EOSINOPHILS % (AUTO) 0.4 % (0-6); GLUCOSE 140 MG/DL (70-104); HEMATOCRIT 30.2 % (42.0-52.0); HEMOGLOBIN 10.1 g/dl (14.0-17.9); LYMPHOCYTES # (AUTO) 0.4 X10'3 (1.1-4.8); LYMPHOCYTES % (AUTO) 3.3 % (21-51); MEAN CORPUSCULAR HGB CONC 33.3 g/dL (33.0-36.5); MEAN CORPUSCULAR VOLUME 87.1 FL (78-98); MEAN PLATELET VOLUME 7.8 FL (7.4-10.4); MONOCYTES # (AUTO) 0.4 X10'3 (0-0.9); NEUTROPHILS # (AUTO) 11.9 X10'3 (1.8-7.7); NEUTROPHILS % (AUTO) 92.7 % (42-75); PLATELET COUNT 203 X10'3 (140-440); RED BLOOD COUNT 3.46 X10'6 (4.70-6.10); RED CELL DISTRIBUTION WIDTH 17.3 % (11.5-14.5); WHITE BLOOD COUNT 12.8 X10'3 (4.5-11.0)
--- NOTE | 2018-07-19 15:28 | NUR ---
Reassessment: Patient refused corpak, no TF were started. No significant BM since 07/12 per RN; last given milk of magnesia on 07/16. Patient started on CVVH today and has increased protein needs r/t CVVH and wound healing needs s/p AKA. RD attempted visit, however patient was having a PICC placed and was not available for bedside interview. Recommendations: 1) Continue pureed food and honey thick liquids per HAMMERER HELPER recs 2) routine bowel care, no BM in one week 3) wt per rx Addendum: 07/19/18 at [address] Amended: Links added.
[2018-07-19] MEDS: normal saline 1000ml 1,000 ML IV SCH (16:34)
--- NOTE | 2018-07-19 18:05 | NUR ---
Problems reprioritized. Patient report given, questions answered & plan of care reviewed with ONCOMING SHIFT.
[2018-07-19 18:22] LABS: MAGNESIUM 1.8 MG/DL (1.5-2.4)
--- NOTE | 2018-07-19 18:35 | NUR ---
183..Patient in room ICU 2045. I have received report from Danica RUIARTE and had the opportunity to ask questions and assume patient care.
[2018-07-19] MEDS: insulin glargine (Lantus) pen - multi-dose SQ SCH (21:00)
[2018-07-19 21:19] LABS: BASOPHILS % (AUTO) 0.4 % (0-1); EOSINOPHILS % (AUTO) 0.4 % (0-6); LYMPHOCYTES # (AUTO) 0.5 X10'3 (1.1-4.8); LYMPHOCYTES % (AUTO) 4.6 % (21-51); MEAN CORPUSCULAR HGB CONC 33.4 g/dL (33.0-36.5); MEAN CORPUSCULAR VOLUME 86.6 FL (78-98); MEAN PLATELET VOLUME 7.8 FL (7.4-10.4); MONOCYTES # (AUTO) 0.4 X10'3 (0-0.9); NEUTROPHILS % (AUTO) 90.6 % (42-75); PLATELET COUNT 203 X10'3 (140-440); RED BLOOD COUNT 3.47 X10'6 (4.70-6.10); RED CELL DISTRIBUTION WIDTH 17.2 % (11.5-14.5)
--- NOTE | 2018-07-19 21:24 | NUR ---
1999..Assessment as noted, CVV in progress, no problems at this time. Denies any complaints, resting quietly.
[2018-07-19 21:32] LABS: ALBUMIN 1.4 G/DL (3.4-5.0); ANION GAP 13 (8-16); BLOOD UREA NITROGEN 20 MG/DL (7-18); CALCIUM 8.3 MG/DL (8.5-10.1); CHLORIDE 104 MMOL/L (99-107); MAGNESIUM 1.7 MG/DL (1.5-2.4); PHOSPHORUS 2.7 MG/DL (2.3-4.5); POTASSIUM 4.6 MMOL/L (3.5-5.1); SODIUM 138 MMOL/L (135-145); TOTAL CARBON DIOXIDE 21.1 MMOL/L (24-32); eGFR 34 ML/MIN
[2018-07-19 21:33] LABS: GLUCOSE 139 MG/DL (70-104)
[2018-07-20] VITALS (24 sets, daily range): BP systolic 101–127; BP diastolic 56–76
--- NOTE | 2018-07-20 00:07 | NUR ---
0000..No changes noted, continues resting quietly.
[2018-07-20] MEDS: Duosol 4K/3 Ca (w/calcium) 5,000 ML HE SCH ×3 (01:02→19:11)
[2018-07-20 02:51] LABS: BASOPHILS # (AUTO) 0.1 X10'3 (0-0.2); BASOPHILS % (AUTO) 0.6 % (0-1); EOSINOPHILS % (AUTO) 0.5 % (0-6); HEMATOCRIT 30.2 % (42.0-52.0); LYMPHOCYTES # (AUTO) 0.5 X10'3 (1.1-4.8); LYMPHOCYTES % (AUTO) 5.2 % (21-51); MEAN CORPUSCULAR HEMOGLOBIN 29.3 PG (27.0-31.0); MEAN CORPUSCULAR HGB CONC 33.2 g/dL (33.0-36.5); MEAN CORPUSCULAR VOLUME 88.1 FL (78-98); MEAN PLATELET VOLUME 8.2 FL (7.4-10.4); MONOCYTES # (AUTO) 0.4 X10'3 (0-0.9); MONOCYTES % (AUTO) 3.8 % (2-12); NEUTROPHILS # (AUTO) 8.8 X10'3 (1.8-7.7); NEUTROPHILS % (AUTO) 89.9 % (42-75); PLATELET COUNT 199 X10'3 (140-440); RED BLOOD COUNT 3.43 X10'6 (4.70-6.10); RED CELL DISTRIBUTION WIDTH 17.6 % (11.5-14.5); WHITE BLOOD COUNT 9.8 X10'3 (4.5-11.0)
[2018-07-20 03:11] LABS: ALANINE AMINOTRANSFERASE 9 U/L (12-78); ALBUMIN 1.4 G/DL (3.4-5.0); ALBUMIN/GLOBULIN RATIO 0.3 (1.1-1.5); ALKALINE PHOSPHATASE 79 IU/L (46-116); ANION GAP 14 (8-16); ASPARTATE AMINO TRANSFERASE 21 U/L (10-37); BILIRUBIN,TOTAL 2.4 MG/DL (0.1-1.0); BLOOD UREA NITROGEN 18 MG/DL (7-18); BUN/CREATININE RATIO 9.8 (5.4-32.0); CALCIUM 8.3 MG/DL (8.5-10.1); CHLORIDE 102 MMOL/L (99-107); CREATININE 1.84 MG/DL (0.60-1.10); GLUCOSE 135 MG/DL (70-104); MAGNESIUM 2.3 MG/DL (1.5-2.4); PHOSPHORUS 2.6 MG/DL (2.3-4.5); POTASSIUM 4.5 MMOL/L (3.5-5.1); SODIUM 137 MMOL/L (135-145); TOTAL CARBON DIOXIDE 20.7 MMOL/L (24-32); TOTAL PROTEIN 5.6 G/DL (6.4-8.2); eGFR 37 ML/MIN
--- NOTE | 2018-07-20 04:10 | NUR ---
0400..Continues to rest quietly, no changes noted.
--- NOTE | 2018-07-20 06:15 | NUR ---
Patient in room ICU 2045. I have received report from optical worker and had the opportunity to ask questions and assume patient care.
--- NOTE | 2018-07-20 06:23 | NUR ---
0620..Problems reprioritized. Patient report given, questions answered & plan of care reviewed with Danica URIARTE.
[2018-07-20] MEDS: K and/or MAG REPLACEMENT MC SCH (08:00)
[2018-07-20] MEDS: methylnaltrexone br 12mg/0.6ml inj***SubQ only SQ SCH (08:00)
[2018-07-20] MEDS: isosorbide mononitrate 30mg tab.SR.24H PO SCH (08:00)
[2018-07-20] MEDS ORDERED: epoetin 20,000 units/ml inj SQ ONE (08:00)
[2018-07-20] MEDS: pantoprazole 40mg Tablet.DR PO SCH (08:25)
[2018-07-20] MEDS: aspirin 81mg tab.chew PO SCH (08:25)
[2018-07-20] MEDS: lactobacillus rhamnosus 10,000 MMU CELLS/CAPSULE PO SCH ×2 (08:25→21:04)
[2018-07-20] MEDS: heparin, porcine 5000 units/ml vial SQ SCH ×2 (08:25→21:05)
[2018-07-20] MEDS: piperacillin/tazo 3.375gm/50ml 50 ML IV SCH ×3 (08:29→23:58)
[2018-07-20 10:05] LABS: BASOPHILS # (AUTO) 0.1 X10'3 (0-0.2); BASOPHILS % (AUTO) 0.7 % (0-1); EOSINOPHILS # (AUTO) 0.1 X10'3 (0-0.9); EOSINOPHILS % (AUTO) 0.6 % (0-6); HEMATOCRIT 28.5 % (42.0-52.0); HEMOGLOBIN 9.5 g/dl (14.0-17.9); LYMPHOCYTES # (AUTO) 0.5 X10'3 (1.1-4.8); MEAN CORPUSCULAR HEMOGLOBIN 29.4 PG (27.0-31.0); MEAN CORPUSCULAR HGB CONC 33.5 g/dL (33.0-36.5); MEAN CORPUSCULAR VOLUME 87.7 FL (78-98); MONOCYTES # (AUTO) 0.3 X10'3 (0-0.9); NEUTROPHILS # (AUTO) 8.9 X10'3 (1.8-7.7); NEUTROPHILS % (AUTO) 90.7 % (42-75); PLATELET COUNT 180 X10'3 (140-440); RED BLOOD COUNT 3.25 X10'6 (4.70-6.10); RED CELL DISTRIBUTION WIDTH 17.6 % (11.5-14.5); WHITE BLOOD COUNT 9.8 X10'3 (4.5-11.0)
[2018-07-20 10:06] LABS: ALBUMIN 1.4 G/DL (3.4-5.0); ANION GAP 13 (8-16); BLOOD UREA NITROGEN 17 MG/DL (7-18); CALCIUM 8.3 MG/DL (8.5-10.1); CHLORIDE 104 MMOL/L (99-107); GLUCOSE 136 MG/DL (70-104); MAGNESIUM 2.1 MG/DL (1.5-2.4); PHOSPHORUS 2.4 MG/DL (2.3-4.5); POTASSIUM 4.5 MMOL/L (3.5-5.1); SODIUM 137 MMOL/L (135-145); TOTAL CARBON DIOXIDE 20.1 MMOL/L (24-32); eGFR 41 ML/MIN
[2018-07-20] MEDS: magnesium hydroxide 30ml (MOM) UD suspension PO PRN (13:46)
[2018-07-20] MEDS: hydrocortisone 10mg tablet PO SCH ×2 (14:07→21:04)
[2018-07-20 15:03] LABS: ALBUMIN 1.4 G/DL (3.4-5.0); ANION GAP 12 (8-16); BLOOD UREA NITROGEN 15 MG/DL (7-18); BUN/CREATININE RATIO 9.7 (5.4-32.0); CALCIUM 8.3 MG/DL (8.5-10.1); CHLORIDE 104 MMOL/L (99-107); CREATININE 1.55 MG/DL (0.60-1.10); GLUCOSE 137 MG/DL (70-104); PHOSPHORUS 2.1 MG/DL (2.3-4.5); POTASSIUM 4.5 MMOL/L (3.5-5.1); SODIUM 136 MMOL/L (135-145); TOTAL CARBON DIOXIDE 19.6 MMOL/L (24-32); eGFR 45 ML/MIN
[2018-07-20 15:09] LABS: BASOPHILS % (AUTO) 0.4 % (0-1); EOSINOPHILS % (AUTO) 0.5 % (0-6); HEMATOCRIT 29.3 % (42.0-52.0); HEMOGLOBIN 9.9 g/dl (14.0-17.9); LYMPHOCYTES # (AUTO) 0.5 X10'3 (1.1-4.8); LYMPHOCYTES % (AUTO) 5.9 % (21-51); MEAN CORPUSCULAR HEMOGLOBIN 29.6 PG (27.0-31.0); MEAN CORPUSCULAR HGB CONC 33.7 g/dL (33.0-36.5); MONOCYTES # (AUTO) 0.3 X10'3 (0-0.9); MONOCYTES % (AUTO) 3.8 % (2-12); NEUTROPHILS # (AUTO) 8.2 X10'3 (1.8-7.7); NEUTROPHILS % (AUTO) 89.4 % (42-75); PLATELET COUNT 194 X10'3 (140-440); RED BLOOD COUNT 3.33 X10'6 (4.70-6.10); RED CELL DISTRIBUTION WIDTH 17.8 % (11.5-14.5); WHITE BLOOD COUNT 9.2 X10'3 (4.5-11.0)
--- NOTE | 2018-07-20 15:14 | NUR ---
Reassessment: Pt s/p BSS on 07/19 with STATE PATROL OFFICER recs [facility] soft with ground meats and thin liquids d/t pt being edentulous. Pt with slight increase in PO with documented 25% intake since advancement however pt still not meeting nutrient needs. Recommend resuming Ensure Enlive now that pt able to tolerate thin liquids per STATE PATROL OFFICER. Pt continues with CVVH with 2L fluid off per MD notes. LBM 07/12, pt with routine Relistor not administered d/t it not being needed per med list however pt documented to have received MoM today. Will continue to follow. Recommendations: 1) Continue [facility] soft food with ground meat and thin liquids per STATE PATROL OFFICER recs 2) Ensure Enlive TID 3) routine bowel care, no BM in one week 4) wt per rx Addendum: 07/20/18 at [address] Amended: Links added.
[2018-07-20] MEDS: normal saline 1000ml 1,000 ML IV SCH (16:07)
--- NOTE | 2018-07-20 16:37 | NUR ---
Pt seen at bedside. Pt reports an improving appetite and agreeable to ONS. Pt reports no difficulties with current texture modification. RD encouraged PO intake of meals and ONS. Will continue to follow. Addendum: 07/20/18 at [address] Amended: Links added.
[2018-07-20] MEDS: NORepinephrine 8mg/ 250ml NS 250 ML IV PRN (17:16)
[2018-07-20] MEDS: lactose-reduced food (Ensure Enlive) - 237ml bottle PO SCH (18:00)
--- NOTE | 2018-07-20 18:05 | NUR ---
Problems reprioritized. Patient report given, questions answered & plan of care reviewed with oncoming shift.
--- NOTE | 2018-07-20 18:37 | NUR ---
183..Patient in room ICU 2045. I have received report from Danica URIARTE and had the opportunity to ask questions and assume patient care.
[2018-07-20] MEDS: insulin glargine (Lantus) pen - multi-dose SQ SCH (21:00)
--- NOTE | 2018-07-20 21:31 | NUR ---
1999..Assessment as noted, denies any complaints. CVVH in progress.
--- NOTE | 2018-07-20 21:32 | NUR ---
2100..CVVH machine clotted, inspector assemblies and installations at bedside.
[2018-07-20 22:31] LABS: BASOPHILS % (AUTO) 0.4 % (0-1); EOSINOPHILS % (AUTO) 0.2 % (0-6); HEMATOCRIT 27.4 % (42.0-52.0); LYMPHOCYTES # (AUTO) 0.5 X10'3 (1.1-4.8); LYMPHOCYTES % (AUTO) 5.4 % (21-51); MEAN CORPUSCULAR HEMOGLOBIN 29.3 PG (27.0-31.0); MEAN CORPUSCULAR HGB CONC 32.7 g/dL (33.0-36.5); MEAN CORPUSCULAR VOLUME 89.4 FL (78-98); MEAN PLATELET VOLUME 8.2 FL (7.4-10.4); MONOCYTES # (AUTO) 0.3 X10'3 (0-0.9); MONOCYTES % (AUTO) 3.1 % (2-12); NEUTROPHILS # (AUTO) 8.3 X10'3 (1.8-7.7); NEUTROPHILS % (AUTO) 90.9 % (42-75); PLATELET COUNT 177 X10'3 (140-440); RED BLOOD COUNT 3.07 X10'6 (4.70-6.10); WHITE BLOOD COUNT 9.1 X10'3 (4.5-11.0)
[2018-07-20 22:40] LABS: ALBUMIN 1.4 G/DL (3.4-5.0); ANION GAP 13 (8-16); BLOOD UREA NITROGEN 13 MG/DL (7-18); BUN/CREATININE RATIO 8.5 (5.4-32.0); CALCIUM 8.1 MG/DL (8.5-10.1); CHLORIDE 104 MMOL/L (99-107); CREATININE 1.53 MG/DL (0.60-1.10); GLUCOSE 135 MG/DL (70-104); MAGNESIUM 1.9 MG/DL (1.5-2.4); POTASSIUM 4.4 MMOL/L (3.5-5.1); SODIUM 138 MMOL/L (135-145); TOTAL CARBON DIOXIDE 20.9 MMOL/L (24-32); eGFR 46 ML/MIN
--- NOTE | 2018-07-20 23:22 | NUR ---
2200..CVVH running again, no other changes noted.
[2018-07-21] VITALS (24 sets, daily range): BP systolic 96–118; BP diastolic 55–80
--- NOTE | 2018-07-21 00:08 | NUR ---
0000..Resting quietly, no changes noted.
[2018-07-21] MEDS: hydrocortisone 10mg tablet PO SCH ×2 (02:00→07:39)
[2018-07-21] MEDS: Duosol 4K/3 Ca (w/calcium) 5,000 ML HE SCH ×2 (02:35→08:00)
[2018-07-21 02:47] LABS: BASOPHILS % (AUTO) 0.4 % (0-1); EOSINOPHILS % (AUTO) 0 % (0-6); HEMATOCRIT 28.6 % (42.0-52.0); HEMOGLOBIN 9.5 g/dl (14.0-17.9); LYMPHOCYTES # (AUTO) 0.5 X10'3 (1.1-4.8); MEAN CORPUSCULAR HEMOGLOBIN 29.3 PG (27.0-31.0); MEAN CORPUSCULAR HGB CONC 33.1 g/dL (33.0-36.5); MEAN CORPUSCULAR VOLUME 88.4 FL (78-98); MONOCYTES # (AUTO) 0.3 X10'3 (0-0.9); MONOCYTES % (AUTO) 2.6 % (2-12); NEUTROPHILS # (AUTO) 9.2 X10'3 (1.8-7.7); PLATELET COUNT 199 X10'3 (140-440); RED BLOOD COUNT 3.23 X10'6 (4.70-6.10)
[2018-07-21 02:59] LABS: ALANINE AMINOTRANSFERASE 11 U/L (12-78); ALBUMIN 1.4 G/DL (3.4-5.0); ALBUMIN/GLOBULIN RATIO 0.4 (1.1-1.5); ALKALINE PHOSPHATASE 84 IU/L (46-116); ANION GAP 13 (8-16); ASPARTATE AMINO TRANSFERASE 24 U/L (10-37); BILIRUBIN,TOTAL 2.2 MG/DL (0.1-1.0); BLOOD UREA NITROGEN 13 MG/DL (7-18); BUN/CREATININE RATIO 9.2 (5.4-32.0); CHLORIDE 104 MMOL/L (99-107); CREATININE 1.41 MG/DL (0.60-1.10); GLUCOSE 154 MG/DL (70-104); MAGNESIUM 1.9 MG/DL (1.5-2.4); PHOSPHORUS 3.1 MG/DL (2.3-4.5); POTASSIUM 4.5 MMOL/L (3.5-5.1); SODIUM 137 MMOL/L (135-145); TOTAL CARBON DIOXIDE 20.2 MMOL/L (24-32); TOTAL PROTEIN 5.4 G/DL (6.4-8.2); eGFR 50 ML/MIN
--- NOTE | 2018-07-21 04:10 | NUR ---
0400..Continues to rest quietly, denies any complaints, no changes noted.
--- NOTE | 2018-07-21 06:15 | NUR ---
Patient in room ICU 2045. I have received report from shift production associate and had the opportunity to ask questions and assume patient care.
--- NOTE | 2018-07-21 06:31 | NUR ---
9930..Problems reprioritized. Patient report given, questions answered & plan of care reviewed with Danica URIARTE.
[2018-07-21] MEDS: piperacillin/tazo 3.375gm/50ml 50 ML IV SCH ×2 (07:39→16:26)
[2018-07-21] MEDS: lactobacillus rhamnosus 10,000 MMU CELLS/CAPSULE PO SCH ×2 (07:39→20:37)
[2018-07-21] MEDS: aspirin 81mg tab.chew PO SCH (07:39)
[2018-07-21] MEDS: heparin, porcine 5000 units/ml vial SQ SCH ×2 (07:39→20:37)
[2018-07-21] MEDS: pantoprazole 40mg Tablet.DR PO SCH (07:39)
[2018-07-21] MEDS: isosorbide mononitrate 30mg tab.SR.24H PO SCH (07:40)
[2018-07-21] MEDS: K and/or MAG REPLACEMENT MC SCH (08:00)
[2018-07-21] MEDS: BICARB DIALYSIS W/CALCIUM SOL 5,000 ML HE SCH ×5 (08:00→20:53)
[2018-07-21 09:37] LABS: BASOPHILS # (AUTO) 0.1 X10'3 (0-0.2); BASOPHILS % (AUTO) 0.4 % (0-1); EOSINOPHILS % (AUTO) 0 % (0-6); HEMATOCRIT 28.9 % (42.0-52.0); HEMOGLOBIN 9.5 g/dl (14.0-17.9); LYMPHOCYTES # (AUTO) 0.4 X10'3 (1.1-4.8); LYMPHOCYTES % (AUTO) 3.4 % (21-51); MEAN CORPUSCULAR HEMOGLOBIN 29.1 PG (27.0-31.0); MEAN CORPUSCULAR HGB CONC 32.9 g/dL (33.0-36.5); MEAN CORPUSCULAR VOLUME 88.5 FL (78-98); MEAN PLATELET VOLUME 7.9 FL (7.4-10.4); MONOCYTES # (AUTO) 0.4 X10'3 (0-0.9); MONOCYTES % (AUTO) 3.2 % (2-12); NEUTROPHILS # (AUTO) 11.2 X10'3 (1.8-7.7); PLATELET COUNT 191 X10'3 (140-440); RED BLOOD COUNT 3.26 X10'6 (4.70-6.10); RED CELL DISTRIBUTION WIDTH 17.9 % (11.5-14.5)
[2018-07-21 09:48] LABS: ALBUMIN 1.4 G/DL (3.4-5.0); ANION GAP 14 (8-16); BLOOD UREA NITROGEN 13 MG/DL (7-18); BUN/CREATININE RATIO 10.1 (5.4-32.0); CHLORIDE 104 MMOL/L (99-107); CREATININE 1.29 MG/DL (0.60-1.10); PHOSPHORUS 2.9 MG/DL (2.3-4.5); POTASSIUM 4.6 MMOL/L (3.5-5.1); SODIUM 137 MMOL/L (135-145); TOTAL CARBON DIOXIDE 18.8 MMOL/L (24-32); eGFR 56 ML/MIN
[2018-07-21 09:52] LABS: GLUCOSE 170 MG/DL (70-104)
[2018-07-21] MEDS: magnesium hydroxide 30ml (MOM) UD suspension PO PRN (11:06)
[2018-07-21 12:11] LABS: ABG BASE EXCESS -7.6 mmol/L (-2.0-3.0); ABG HCO3 16.6 mmol/L (22.0-26.0); ABG OXYGEN SATURATION 96.4 % (95-98); ABG PH (T) 7.362 (7.350-7.450); ABG PO2 (T) 89.6 mmHg (83-108); ALLEN'S TEST Positive; FCOHb 0.8 % (0.5-1.5); FMetHb 0.1 % (0.3-1.12); FO2Hb 95.5 % (94-100); TOTAL HEMOGLOBIN 11.1 G/dl (14.0-18.0)
[2018-07-21 15:31] LABS: BASOPHILS % (AUTO) 0.2 % (0-1); EOSINOPHILS % (AUTO) 0 % (0-6); HEMATOCRIT 30.5 % (42.0-52.0); HEMOGLOBIN 10.1 g/dl (14.0-17.9); LYMPHOCYTES # (AUTO) 0.4 X10'3 (1.1-4.8); LYMPHOCYTES % (AUTO) 3.4 % (21-51); MEAN CORPUSCULAR HEMOGLOBIN 29.4 PG (27.0-31.0); MEAN CORPUSCULAR HGB CONC 33.2 g/dL (33.0-36.5); MEAN CORPUSCULAR VOLUME 88.5 FL (78-98); MEAN PLATELET VOLUME 8.1 FL (7.4-10.4); MONOCYTES # (AUTO) 0.3 X10'3 (0-0.9); MONOCYTES % (AUTO) 2.5 % (2-12); NEUTROPHILS # (AUTO) 12.1 X10'3 (1.8-7.7); NEUTROPHILS % (AUTO) 93.9 % (42-75); PLATELET COUNT 203 X10'3 (140-440); RED BLOOD COUNT 3.44 X10'6 (4.70-6.10); RED CELL DISTRIBUTION WIDTH 18.4 % (11.5-14.5); WHITE BLOOD COUNT 12.9 X10'3 (4.5-11.0)
[2018-07-21 15:44] LABS: ALBUMIN 1.4 G/DL (3.4-5.0); ANION GAP 15 (8-16); BLOOD UREA NITROGEN 13 MG/DL (7-18); BUN/CREATININE RATIO 9.7 (5.4-32.0); CALCIUM 8.6 MG/DL (8.5-10.1); CHLORIDE 104 MMOL/L (99-107); CREATININE 1.34 MG/DL (0.60-1.10); GLUCOSE 175 MG/DL (70-104); PHOSPHORUS 2.7 MG/DL (2.3-4.5); POTASSIUM 4.6 MMOL/L (3.5-5.1); SODIUM 138 MMOL/L (135-145); TOTAL CARBON DIOXIDE 18.6 MMOL/L (24-32); eGFR 53 ML/MIN
[2018-07-21] MEDS: normal saline 1000ml 1,000 ML IV SCH (16:27)
[2018-07-21] MEDS: NORepinephrine 8mg/ 250ml NS 250 ML IV PRN (16:27)
[2018-07-21 17:41] LABS: MAGNESIUM 1.8 MG/DL (1.5-2.4)
--- NOTE | 2018-07-21 18:12 | NUR ---
Problems reprioritized. Patient report given, questions answered & plan of care reviewed with oncoming rn.
--- NOTE | 2018-07-21 18:57 | NUR ---
183..Patient in room ICU 2045. I have received report from Danica URIARTE and had the opportunity to ask questions and assume patient care.
[2018-07-21] MEDS: lactose-reduced food (Ensure Enlive) - 237ml bottle PO SCH (20:15)
[2018-07-21] MEDS: hydrocortisone sod succ/PF 100mg/2ml inj. IV SCH (20:37)
[2018-07-21 21:28] LABS: BASOPHILS % (AUTO) 0.3 % (0-1); EOSINOPHILS % (AUTO) 0 % (0-6); HEMATOCRIT 30.9 % (42.0-52.0); HEMOGLOBIN 10.1 g/dl (14.0-17.9); LYMPHOCYTES # (AUTO) 0.5 X10'3 (1.1-4.8); LYMPHOCYTES % (AUTO) 3.2 % (21-51); MEAN CORPUSCULAR HEMOGLOBIN 29.2 PG (27.0-31.0); MEAN CORPUSCULAR HGB CONC 32.8 g/dL (33.0-36.5); MEAN CORPUSCULAR VOLUME 88.9 FL (78-98); MONOCYTES # (AUTO) 0.4 X10'3 (0-0.9); MONOCYTES % (AUTO) 2.3 % (2-12); NEUTROPHILS # (AUTO) 14.5 X10'3 (1.8-7.7); NEUTROPHILS % (AUTO) 94.2 % (42-75); PLATELET COUNT 210 X10'3 (140-440); RED BLOOD COUNT 3.47 X10'6 (4.70-6.10); RED CELL DISTRIBUTION WIDTH 18.4 % (11.5-14.5); WHITE BLOOD COUNT 15.4 X10'3 (4.5-11.0)
[2018-07-21] MEDS: insulin glargine (Lantus) pen - multi-dose SQ SCH (21:29)
[2018-07-21 21:39] LABS: ALBUMIN 1.4 G/DL (3.4-5.0); ANION GAP 17 (8-16); BLOOD UREA NITROGEN 13 MG/DL (7-18); BUN/CREATININE RATIO 9.6 (5.4-32.0); CHLORIDE 103 MMOL/L (99-107); CREATININE 1.36 MG/DL (0.60-1.10); PHOSPHORUS 2.7 MG/DL (2.3-4.5); POTASSIUM 4.5 MMOL/L (3.5-5.1); SODIUM 138 MMOL/L (135-145); TOTAL CARBON DIOXIDE 18.1 MMOL/L (24-32); eGFR 52 ML/MIN
--- NOTE | 2018-07-21 21:51 | NUR ---
2030..CVVH machine down, solar energy system installer helper notified.
--- NOTE | 2018-07-21 21:51 | NUR ---
1999..Assessment as noted, denies any complaints, CVVH in progress.
--- NOTE | 2018-07-21 21:52 | NUR ---
2129..CVVH in progress, no other changes noted.
[2018-07-21 22:00] LABS: GLUCOSE 205 MG/DL (70-104)
[2018-07-22] VITALS (24 sets, daily range): BP systolic 84–112; BP diastolic 54–71
[2018-07-22] MEDS: piperacillin/tazo 3.375gm/50ml 50 ML IV SCH ×3 (00:56→16:05)
--- NOTE | 2018-07-22 01:39 | NUR ---
0000..Wilbur hendricks very positional, [facility] machine down, Alejandro FILING CLERK notified. No other changes noted.
[2018-07-22] MEDS: hydrocortisone sod succ/PF 100mg/2ml inj. IV SCH ×4 (02:07→20:55)
--- NOTE | 2018-07-22 02:10 | NUR ---
0200..Per Alejandro WOOTENP, CVV okay to remain down until am. No other changes noted.
[2018-07-22 04:02] LABS: BASOPHILS % (AUTO) 0.2 % (0-1); EOSINOPHILS % (AUTO) 0 % (0-6); HEMOGLOBIN 9.6 g/dl (14.0-17.9); LYMPHOCYTES # (AUTO) 0.5 X10'3 (1.1-4.8); LYMPHOCYTES % (AUTO) 3.3 % (21-51); MEAN CORPUSCULAR HEMOGLOBIN 28.9 PG (27.0-31.0); MEAN CORPUSCULAR HGB CONC 32.1 g/dL (33.0-36.5); MEAN CORPUSCULAR VOLUME 90.1 FL (78-98); MEAN PLATELET VOLUME 8.1 FL (7.4-10.4); MONOCYTES # (AUTO) 0.3 X10'3 (0-0.9); MONOCYTES % (AUTO) 1.8 % (2-12); NEUTROPHILS # (AUTO) 14.9 X10'3 (1.8-7.7); NEUTROPHILS % (AUTO) 94.7 % (42-75); PLATELET COUNT 227 X10'3 (140-440); RED BLOOD COUNT 3.33 X10'6 (4.70-6.10); RED CELL DISTRIBUTION WIDTH 18.5 % (11.5-14.5); WHITE BLOOD COUNT 15.7 X10'3 (4.5-11.0)
[2018-07-22 04:09] LABS: ALANINE AMINOTRANSFERASE 12 U/L (12-78); ALBUMIN 1.3 G/DL (3.4-5.0); ALBUMIN/GLOBULIN RATIO 0.4 (1.1-1.5); ALKALINE PHOSPHATASE 81 IU/L (46-116); ANION GAP 16 (8-16); ASPARTATE AMINO TRANSFERASE 21 U/L (10-37); BLOOD UREA NITROGEN 16 MG/DL (7-18); BUN/CREATININE RATIO 10.9 (5.4-32.0); CALCIUM 7.8 MG/DL (8.5-10.1); CHLORIDE 103 MMOL/L (99-107); CREATININE 1.47 MG/DL (0.60-1.10); GLUCOSE 195 MG/DL (70-104); MAGNESIUM 1.8 MG/DL (1.5-2.4); PHOSPHORUS 2.6 MG/DL (2.3-4.5); POTASSIUM 4.5 MMOL/L (3.5-5.1); SODIUM 138 MMOL/L (135-145); TOTAL CARBON DIOXIDE 18.8 MMOL/L (24-32); eGFR 48 ML/MIN
--- NOTE | 2018-07-22 06:17 | NUR ---
0615..Problems reprioritized. Patient report given, questions answered & plan of care reviewed with Lee URIARTE.
--- NOTE | 2018-07-22 06:30 | NUR ---
Patient in room ICU 2045. I have received report from KALANI Ny and had the opportunity to ask questions and assume patient care.
[2018-07-22] MEDS: pantoprazole 40mg Tablet.DR PO SCH (07:45)
[2018-07-22] MEDS: lactobacillus rhamnosus 10,000 MMU CELLS/CAPSULE PO SCH ×2 (07:45→20:23)
[2018-07-22] MEDS: heparin, porcine 5000 units/ml vial SQ SCH ×2 (07:46→20:25)
[2018-07-22] MEDS: aspirin 81mg tab.chew PO SCH (07:47)
[2018-07-22] MEDS: methylnaltrexone br 12mg/0.6ml inj***SubQ only SQ SCH (07:47)
[2018-07-22] MEDS: isosorbide mononitrate 30mg tab.SR.24H PO SCH (07:48)
--- NOTE | 2018-07-22 08:05 | NUR ---
On-call Dialysis nurse called. HD RN informed CVVH down due to access issues at 0000hrs. Was told that she would contact HD RN covering CVVH machines today.
[2018-07-22] MEDS: K and/or MAG REPLACEMENT MC SCH (08:09)
--- NOTE | 2018-07-22 08:15 | NUR ---
Pt ate two spoonfuls of egg and had a small sip of Ensure. Pt reported that he felt, "full." Pt refusing any further nutrition.
--- NOTE | 2018-07-22 10:13 | NUR ---
Dr Gomez rounded on pt. Received orders to hold CVVH until tomorrow when access can be addressed. Discussed with HD RN.
[2018-07-22] MEDS ORDERED: heparin 1,000 units/ml 10ml inj HE ONE ×2 (10:30)
--- NOTE | 2018-07-22 11:14 | NUR ---
Dr. Gonzáles in to round on pt. HD RN present. Tunneled dialysis catheter placement ordered for tomorrow. Wilbur catheter has been heparin locked.
[2018-07-22] MEDS: insulin Lispro (HumaLOG) vial - multi-dose SQ SCH ×2 (13:30→22:32)
--- NOTE | 2018-07-22 18:30 | NUR ---
Problems reprioritized. Patient report given, questions answered & plan of care reviewed with KALANI Truong.
[2018-07-22] MEDS: insulin glargine (Lantus) pen - multi-dose SQ SCH (22:35)
[2018-07-22] MEDS: normal saline 1000ml 1,000 ML IV SCH (22:36)
[2018-07-23] VITALS (23 sets, daily range): BP systolic 95–119; BP diastolic 60–77
[2018-07-23] MEDS: piperacillin/tazo 3.375gm/50ml 50 ML IV SCH ×3 (00:19→20:23)
[2018-07-23] MEDS: hydrocortisone sod succ/PF 100mg/2ml inj. IV SCH ×4 (02:02→20:22)
[2018-07-23 03:15] LABS: BASOPHILS % (AUTO) 0.2 % (0-1); EOSINOPHILS % (AUTO) 0 % (0-6); HEMOGLOBIN 8.2 g/dl (14.0-17.9); LYMPHOCYTES # (AUTO) 0.4 X10'3 (1.1-4.8); LYMPHOCYTES % (AUTO) 2.8 % (21-51); MEAN CORPUSCULAR HEMOGLOBIN 29.6 PG (27.0-31.0); MEAN CORPUSCULAR HGB CONC 32.7 g/dL (33.0-36.5); MEAN CORPUSCULAR VOLUME 90.3 FL (78-98); MEAN PLATELET VOLUME 7.5 FL (7.4-10.4); MONOCYTES # (AUTO) 0.2 X10'3 (0-0.9); MONOCYTES % (AUTO) 1.2 % (2-12); NEUTROPHILS # (AUTO) 12.7 X10'3 (1.8-7.7); NEUTROPHILS % (AUTO) 95.8 % (42-75); PLATELET COUNT 169 X10'3 (140-440); RED BLOOD COUNT 2.76 X10'6 (4.70-6.10); RED CELL DISTRIBUTION WIDTH 18.9 % (11.5-14.5); WHITE BLOOD COUNT 13.3 X10'3 (4.5-11.0)
[2018-07-23 03:27] LABS: ALBUMIN 1.4 G/DL (3.4-5.0); ANION GAP 8 (8-16); BLOOD UREA NITROGEN 25 MG/DL (7-18); BUN/CREATININE RATIO 10.7 (5.4-32.0); CALCIUM 7.7 MG/DL (8.5-10.1); CHLORIDE 106 MMOL/L (99-107); CREATININE 2.34 MG/DL (0.60-1.10); GLUCOSE 271 MG/DL (70-104); PHOSPHORUS 2.8 MG/DL (2.3-4.5); POTASSIUM 4.5 MMOL/L (3.5-5.1); SODIUM 138 MMOL/L (135-145); TOTAL CARBON DIOXIDE 24.1 MMOL/L (24-32); eGFR 28 ML/MIN
[2018-07-23 03:39] LABS: INR 1.2 INR
--- NOTE | 2018-07-23 06:30 | NUR ---
Problems reprioritized. Patient report given, questions answered & plan of care reviewed with KALANI Truong.
[2018-07-23] MEDS: pantoprazole 40mg Tablet.DR PO SCH (07:30)
[2018-07-23] MEDS: insulin Lispro (HumaLOG) vial - multi-dose SQ SCH ×2 (07:40→12:20)
[2018-07-23] MEDS: heparin, porcine 5000 units/ml vial SQ SCH ×2 (07:41→20:23)
[2018-07-23] MEDS: K and/or MAG REPLACEMENT MC SCH (07:53)
[2018-07-23] MEDS: lactobacillus rhamnosus 10,000 MMU CELLS/CAPSULE PO SCH ×2 (08:00→20:23)
[2018-07-23] MEDS: aspirin 81mg tab.chew PO SCH (08:00)
[2018-07-23] MEDS: isosorbide mononitrate 30mg tab.SR.24H PO SCH (08:00)
--- NOTE | 2018-07-23 08:52 | NUR ---
Patient in room ICU 2045. I have received report from Jarred URIARTE and had the opportunity to ask questions and assume patient care. Patient resting comfortably in bed. In no acute distress. Will continue to monitor.
--- NOTE | 2018-07-23 09:00 | NUR ---
Patient in room ICU 2045. I have received report from Jarred URIARTE and had the opportunity to ask questions and assume patient care.Patient resting comfortably, all vitals are stable, will continue to monitor closely.
--- NOTE | 2018-07-23 10:25 | NUR ---
New orders per Dr. Yepez: Regular diet. D/C central line.
[2018-07-23] MEDS ORDERED: normal saline 1000ml 1,000 ML IV SCH (13:28)
[2018-07-23] MEDS ORDERED: heparin 1,000 units/ml 10ml inj ICATH ONE (13:30)
[2018-07-23] MEDS ORDERED: fentaNYL/PF 50MCG/1 ML 2ML syringe IV PRN (13:30)
[2018-07-23] MEDS ORDERED: midazolam 2 mg/2 ml injection IV PRN (13:30)
[2018-07-23] MEDS ORDERED: LIDOcaine 1%/PF 5ML 10 MG/ML VIAL ONE (13:38)
[2018-07-23] MEDS ORDERED: heparin 1,000unit/ml 10ml vial 10 ML ONE (13:38)
--- NOTE | 2018-07-23 13:46 | NUR ---
Patient taken down to IR to have TDC placed.
--- NOTE | 2018-07-23 13:59 | NUR ---
reassessment: Pt PO remains low 0-25% past 15 days and refused corpak prior. Per RN today pt drank ensure enlive and kept talking about biscuits and gravy. approved liberalization to regular/ground meats diet given low PO and needs since now to receive daily HD via TDC. LBM 07/21. Ensure enlive re-added to meals w/ diet advancement; notified. Will continue to monitor for additional ONS or appetite stimulant needs if PO remains low. Recommendations: 1) Continue [facility] soft food with ground meat and thin liquids per IS/IT PROJECT MANAGER recs 2) Ensure Enlive TID 3) routine bowel care 4) wt per rx Addendum: 07/23/18 at [address] Amended: Links added.
[2018-07-23] MEDS ORDERED: midazolam 2 mg/2 ml injection ONE (14:01)
[2018-07-23] MEDS ORDERED: fentaNYL/PF 50MCG/1 ML 2ML syringe ONE (14:01)
[2018-07-23] MEDS ORDERED: normal saline 1000ml 100 ML IV PRN (14:28)
[2018-07-23] MEDS ORDERED: albumin (Human) 5% 250ml 250 ML IV PRN (14:30)
[2018-07-23] MEDS ORDERED: epoetin 20,000 units/ml inj IV ONE (14:30)
[2018-07-23] MEDS ORDERED: heparin 1,000 units/ml 10ml inj HE ONE ×2 (14:35)
--- NOTE | 2018-07-23 14:52 | NUR ---
Patient back to 2045 from I/R with TDC placed. Patient VS stable. In no acute distress. Will continue to monitor.
--- NOTE | 2018-07-23 18:15 | NUR ---
Problems reprioritized. Patient report given, questions answered & plan of care reviewed with Anahi/Ruel URIARTE.
--- NOTE | 2018-07-23 18:20 | NUR ---
Patient in room ICU 2045. I have received report from Anca URIARTE and had the opportunity to ask questions and assume patient care.
[2018-07-23] MEDS: lactose-reduced food (Ensure Enlive) - 237ml bottle PO SCH ×4 (19:05→20:20)
--- NOTE | 2018-07-23 19:09 | NUR ---
Heparin non admined on EMAR. Given during IR procedure.
[2018-07-23] MEDS: insulin glargine (Lantus) pen - multi-dose SQ SCH (22:03)
[2018-07-24] VITALS (20 sets, daily range): BP systolic 90–130; BP diastolic 57–80
[2018-07-24] MEDS: hydrocortisone sod succ/PF 100mg/2ml inj. IV SCH ×4 (02:05→20:36)
--- NOTE | 2018-07-24 02:15 | NUR ---
Pt appears to be sleeping. VSS. Will continue to monitor
[2018-07-24 02:56] LABS: BASOPHILS % (AUTO) 0.2 % (0-1); EOSINOPHILS % (AUTO) 0 % (0-6); HEMATOCRIT 23.2 % (42.0-52.0); HEMOGLOBIN 7.8 g/dl (14.0-17.9); LYMPHOCYTES # (AUTO) 0.3 X10'3 (1.1-4.8); LYMPHOCYTES % (AUTO) 2.9 % (21-51); MEAN CORPUSCULAR HEMOGLOBIN 29.8 PG (27.0-31.0); MEAN CORPUSCULAR HGB CONC 33.6 g/dL (33.0-36.5); MEAN CORPUSCULAR VOLUME 88.7 FL (78-98); MEAN PLATELET VOLUME 7.8 FL (7.4-10.4); MONOCYTES # (AUTO) 0.3 X10'3 (0-0.9); MONOCYTES % (AUTO) 2.7 % (2-12); NEUTROPHILS % (AUTO) 94.2 % (42-75); PLATELET COUNT 136 X10'3 (140-440); RED BLOOD COUNT 2.62 X10'6 (4.70-6.10); RED CELL DISTRIBUTION WIDTH 19.6 % (11.5-14.5); WHITE BLOOD COUNT 9.5 X10'3 (4.5-11.0)
[2018-07-24 03:30] LABS: ALBUMIN 1.5 G/DL (3.4-5.0); ANION GAP 4 (8-16); BLOOD UREA NITROGEN 16 MG/DL (7-18); BUN/CREATININE RATIO 8.9 (5.4-32.0); CALCIUM 7.5 MG/DL (8.5-10.1); CHLORIDE 105 MMOL/L (99-107); GLUCOSE 154 MG/DL (70-104); MAGNESIUM 1.8 MG/DL (1.5-2.4); PHOSPHORUS 1.8 MG/DL (2.3-4.5); POTASSIUM 3.8 MMOL/L (3.5-5.1); SODIUM 138 MMOL/L (135-145); TOTAL CARBON DIOXIDE 29.1 MMOL/L (24-32); eGFR 38 ML/MIN
[2018-07-24 04:08] LABS: ANISOCYTOSIS 2+; PLATELET ESTIMATE DECREASED
--- NOTE | 2018-07-24 06:09 | NUR ---
[place] documentation: I have reviewed and agree with all interventions, assessments performed and documented by Ruel URIARTE. [place] Medication Administration: For this medication-pass time frame, all medication were reviewed, dispensed, administered and documented per hospital policy by Ruel URIARTE.
--- NOTE | 2018-07-24 06:30 | NUR ---
Patient in room ICU 2045. I have received report from KALANI Christian and had the opportunity to ask questions and assume patient care.
[2018-07-24] MEDS: isosorbide mononitrate 30mg tab.SR.24H PO SCH (08:00)
[2018-07-24] MEDS: K and/or MAG REPLACEMENT MC SCH (08:00)
[2018-07-24] MEDS: lactose-reduced food (Ensure Enlive) - 237ml bottle PO SCH ×3 (08:00→18:00)
[2018-07-24] MEDS: methylnaltrexone br 12mg/0.6ml inj***SubQ only SQ SCH (08:00)
[2018-07-24] MEDS ORDERED: albumin (Human) 5% 250ml 250 ML IV PRN (08:35)
[2018-07-24] MEDS ORDERED: epoetin 20,000 units/ml inj IV ONE ×2 (08:35→08:45)
[2018-07-24] MEDS: lactobacillus rhamnosus 10,000 MMU CELLS/CAPSULE PO SCH ×3 (08:36→20:36)
[2018-07-24] MEDS: aspirin 81mg tab.chew PO SCH (08:36)
[2018-07-24] MEDS: heparin, porcine 5000 units/ml vial SQ SCH ×2 (08:37→20:36)
[2018-07-24] MEDS: pantoprazole 40mg Tablet.DR PO SCH (08:37)
[2018-07-24] MEDS: piperacillin/tazo 3.375gm/50ml 50 ML IV SCH ×2 (08:45→17:32)
[2018-07-24] MEDS ORDERED: heparin 1,000 units/ml 10ml inj HE ONE ×2 (08:50)
--- NOTE | 2018-07-24 14:00 | NUR ---
Pt receiving dialysis, tolerating well without drop of BP. pt is showing signs of aspiration during meal. BSS order placed. will thickened liquid and crushed pills.
[2018-07-24] MEDS: insulin Lispro (HumaLOG) vial - multi-dose SQ SCH (14:17)
--- NOTE | 2018-07-24 16:30 | NUR ---
Report called to receiving nurse KALANI Truong. Transferred via bed with [facility]ong[facility]. Special Issues communicated to receiving nurse.
--- NOTE | 2018-07-24 17:05 | NUR ---
Received report from Felisha URIARTE. Patient admitted to floor, denies complaints. Bed is low and locked with call light in place. Will continue to monitor at this time.
--- NOTE | 2018-07-24 18:35 | NUR ---
Problems reprioritized. Patient report given, questions answered & plan of care reviewed with Minerva URIARTE. Patient stable at transfer of care.
[2018-07-24] MEDS: insulin glargine (Lantus) pen - multi-dose SQ SCH (22:07)
[2018-07-25] MEDS: piperacillin/tazo 3.375gm/50ml 50 ML IV SCH ×2 (00:41→07:31)
[2018-07-25 03:00] VITALS: BP 108/75
[2018-07-25 06:00] VITALS: BP 124/70
--- NOTE | 2018-07-25 06:41 | NUR ---
Patient in room PCU 3026. I have received report from arabella Palma and had the opportunity to ask questions and assume patient care.
[2018-07-25] MEDS: pantoprazole 40mg Tablet.DR PO SCH (07:40)
[2018-07-25] MEDS: aspirin 81mg tab.chew PO SCH (07:40)
[2018-07-25] MEDS: lactobacillus rhamnosus 10,000 MMU CELLS/CAPSULE PO SCH (07:40)
[2018-07-25] MEDS: isosorbide mononitrate 30mg tab.SR.24H PO SCH (07:40)
[2018-07-25] MEDS: heparin, porcine 5000 units/ml vial SQ SCH (08:00)
[2018-07-25] MEDS: lactose-reduced food (Ensure Enlive) - 237ml bottle PO SCH ×2 (08:00→13:00)
[2018-07-25] MEDS: K and/or MAG REPLACEMENT MC SCH (08:00)
--- NOTE | 2018-07-25 08:00 | NUR ---
Did not administer Heparin per MD order due to patients low platelet level o f139 Addendum: 07/25/18 at 1755 by Cee Allison RN Due to patients low platelet level of 139 on 07/24 and no new lab draw yet for today 07/25.
[2018-07-25] MEDS: insulin Lispro (HumaLOG) vial - multi-dose SQ SCH (09:10)
[2018-07-25 11:11] VITALS: BP 100/65
[2018-07-25 11:12] LABS: BASOPHILS % (AUTO) 0.2 % (0-1); EOSINOPHILS % (AUTO) 0 % (0-6); HEMATOCRIT 22.7 % (42.0-52.0); HEMOGLOBIN 7.7 g/dl (14.0-17.9); LYMPHOCYTES # (AUTO) 0.6 X10'3 (1.1-4.8); LYMPHOCYTES % (AUTO) 7.9 % (21-51); MEAN CORPUSCULAR HEMOGLOBIN 30.1 PG (27.0-31.0); MEAN CORPUSCULAR HGB CONC 33.9 g/dL (33.0-36.5); MEAN CORPUSCULAR VOLUME 88.9 FL (78-98); MEAN PLATELET VOLUME 7.9 FL (7.4-10.4); MONOCYTES # (AUTO) 0.5 X10'3 (0-0.9); MONOCYTES % (AUTO) 6.9 % (2-12); NEUTROPHILS # (AUTO) 6.2 X10'3 (1.8-7.7); PLATELET COUNT 165 X10'3 (140-440); RED BLOOD COUNT 2.55 X10'6 (4.70-6.10); RED CELL DISTRIBUTION WIDTH 21.3 % (11.5-14.5); WHITE BLOOD COUNT 7.3 X10'3 (4.5-11.0)
[2018-07-25 11:25] LABS: ALBUMIN 1.5 G/DL (3.4-5.0); ANION GAP 3 (8-16); BLOOD UREA NITROGEN 16 MG/DL (7-18); BUN/CREATININE RATIO 8.2 (5.4-32.0); CALCIUM 7.6 MG/DL (8.5-10.1); CHLORIDE 105 MMOL/L (99-107); CREATININE 1.94 MG/DL (0.60-1.10); GLUCOSE 76 MG/DL (70-104); PHOSPHORUS 1.3 MG/DL (2.3-4.5); POTASSIUM 3.8 MMOL/L (3.5-5.1); SODIUM 137 MMOL/L (135-145); TOTAL CARBON DIOXIDE 28.7 MMOL/L (24-32); eGFR 35 ML/MIN
[2018-07-25] MEDS ORDERED: albumin (Human) 5% 250ml 250 ML IV PRN (11:30)
[2018-07-25] MEDS ORDERED: epoetin 20,000 units/ml inj IV ONE (11:30)
--- NOTE | 2018-07-25 14:00 | NUR ---
Patient diet was incorrect on meal tray, requested new diet per MD order, gave patient a sandwich, he stated he did not want to eat anymore because the dextrose oral solution we gave him for low blood sugars made him feel nauseas. Addendum: 07/25/18 at 1747 by Cee Allison RN Amended: Links added.
[2018-07-25] MEDS: dextrose ORAL solution 15 GM/59 ML bottle PO PRN (14:11)
--- NOTE | 2018-07-25 14:12 | NUR ---
Patient's blood sugar was 61. Followed protocol and administered dextrose oral solution 15 mg. Re-took sugar and it was 57, administered another dextrose 15mg oral solution. Blood sugar dropped again to 55, administered one more dextrose 15 mg solution per protocol. Administered all solutions immideitaely after blood sugars were taken but forgot to scan.
--- NOTE | 2018-07-25 14:27 | NUR ---
Víctor 12: skin intact w/ healed scabs. Addendum: 07/25/18 at [address] Amended: Links added.
[2018-07-25 15:00] VITALS: BP 96/66
--- NOTE | 2018-07-25 16:30 | NUR ---
Patient is resting comfortably. came to the unit and had questions. was very agitated when arriving to the unit. She was agitated when I confirmed her identity and made sure that I had permission to speak with her about my patients medical information as she stated, "I am his of 45 years and yes, you can share his information with me, anymore questions?" Upon entering the room her chief complaint was that we had lost Jose's clothes. I apologized to her and explained that with the multiple transfers and Jose's unstable condition at the time, that his clothes may have been misplaced. I apologized to her and assured her that we would continue to try to locate his clothes. She then had another complaint that we had not called her about Jose's impending transfer. I informed her that it had been very busy on the unit and we did not know where he would transfer to at the time, only that it would eventually/probably happen depending on Jose's condition that day. I updated her about Jose's low blood sugars throughout the day, and that at the time this was our main priority as the dangers of low blood sugar are detrimental to Jose's survival and well being. Her next complaint was that I would not give medical information to her daughter over the telephone. I informed her that I spoke with Jose and he personally asked me to not divulge information about his recent medical condition to his daughter as he stated, "She has her own view on how my medical conditions should be managed, and I have my own views on how my medical care should be managed." Urbano and I spoke and agreed upon what he told me to tell her which was that he was doing well, and would be transferred to a facility later in the day. The daughter asked me what facility and I informed her that I did not know yet, because this was up to the Dr and case management. She was frustrated with this. I tried my best to console her and tell his daughter I was only trying to follow Jose's wishes as my patient to nurse relationship is very important to me. His , Olya, continued to escalate in her frustrations as Jose tried to inform her how well he felt like Jennifer West, and myself had been caring for him throughout the day, as he stated, " Honey, be nice to these girls, they have been tending to me all day, they have been working very hard on me all day, give them a break." His , Willie, stated that she wasn't happy with his care from previous visits and would file a complaint. We gave her necessary verbal information and informed her that it was her right to file a complaint. After Olya left the room, Urbano felt it necessary to apologize to Jennifer and myself as he said, " I'm sorry about my , she just wants to help." I assure Urbano that he did not need to apologize but we did appreciate him.
[2018-07-25 16:36] LABS: % IRON SATURATION 18 % (11-46); IRON 27 UG/DL (53-167); TOTAL IRON BINDING CAPACITY 150 UG/DL (259-388)
[2018-07-25 16:51] LABS: FERRITIN 114 NG/ML (26-388)
--- NOTE | 2018-07-25 18:03 | NUR ---
Patient in room PCU 3026. I have received report from Judy URIARTE and had the opportunity to ask questions and assume patient care. pt is on dilalysis, RA, SL, AAO
--- NOTE | 2018-07-25 18:28 | NUR ---
Problems reprioritized. Patient report given, questions answered & plan of care reviewed with KALANI Rodríguez.
--- NOTE | 2018-07-25 18:57 | NUR ---
pt had 12 beats of Vtach- Bp 99/70, HR 81
--- NOTE | 2018-07-25 19:12 | NUR ---
PAGER ID: [phone] MESSAGE: Yadiel Ochoa, pt Urbano Rodrigues is [id number], had 12 beats of Vtach, he is back on Sinus, BP 99/70, HR 81, having dialysis right now, pt will go to [facility] at 2100. Thanks, Anne URIARTE [phone]
--- NOTE | 2018-07-25 19:38 | NUR ---
notified March PNEUMATIC TESTER MECHANIC about 12 beats of Vtach, no new order received
== END 2018-07-25 23:00 | DRG 853 ==
LOC: ER 12:26 → SUR 3N 16:59 → CMPBEDREQ 19:04 → PCU 3S 07-10 11:50 → ICU 2S 07-10 14:49 → PCU 3S 07-11 10:55 → ICU 2S 07-12 19:47 → PCU 3S 07-24 17:05
PROVIDERS: ADMIT Family Medicine; ATTEND Internal Medicine Critical Care Medicine
PROC: 5A1D70Z Performance of Urinary Filtration, Intermittent, Less than 6 Hours Per Day (ICD-10-PCS; 2018-07-11)
PROC: 30233N1 Transfusion of Nonautologous Red Blood Cells into Peripheral Vein, Percutaneous Approach (ICD-10-PCS; 2018-07-12)
PROC: 0Y6C0Z3 Detachment at Right Upper Leg, Low, Open Approach (ICD-10-PCS; principal; 2018-07-12 14:31)
PROC: 02HV33Z Insertion of Infusion Device into Superior Vena Cava, Percutaneous Approach (ICD-10-PCS; 2018-07-13)
PROC: B548ZZA Ultrasonography of Superior Vena Cava, Guidance (ICD-10-PCS; 2018-07-13)
PROC: 0YJC0ZZ Inspection of Right Upper Leg, Open Approach (ICD-10-PCS; 2018-07-14)
PROC: 5A1D70Z Performance of Urinary Filtration, Intermittent, Less than 6 Hours Per Day (ICD-10-PCS; 2018-07-14)
PROC: 5A1D70Z Performance of Urinary Filtration, Intermittent, Less than 6 Hours Per Day (ICD-10-PCS; 2018-07-16)
PROC: 30233N1 Transfusion of Nonautologous Red Blood Cells into Peripheral Vein, Percutaneous Approach (ICD-10-PCS; 2018-07-18)
PROC: 5A1D70Z Performance of Urinary Filtration, Intermittent, Less than 6 Hours Per Day (ICD-10-PCS; 2018-07-18)
PROC: 5A1D70Z Performance of Urinary Filtration, Intermittent, Less than 6 Hours Per Day (ICD-10-PCS; 2018-07-20)
PROC: 5A1D70Z Performance of Urinary Filtration, Intermittent, Less than 6 Hours Per Day (ICD-10-PCS; 2018-07-21)
PROC: 0JH63XZ Insertion of Tunneled Vascular Access Device into Chest Subcutaneous Tissue and Fascia, Percutaneous Approach (ICD-10-PCS; 2018-07-23)
PROC: 02HV33Z Insertion of Infusion Device into Superior Vena Cava, Percutaneous Approach (ICD-10-PCS; 2018-07-23)
PROC: B5181ZA Fluoroscopy of Superior Vena Cava using Low Osmolar Contrast, Guidance (ICD-10-PCS; 2018-07-23)
PROC: B543ZZA Ultrasonography of Right Jugular Veins, Guidance (ICD-10-PCS; 2018-07-23)
PROC: 5A1D70Z Performance of Urinary Filtration, Intermittent, Less than 6 Hours Per Day (ICD-10-PCS; 2018-07-23)
PROC: 5A1D70Z Performance of Urinary Filtration, Intermittent, Less than 6 Hours Per Day (ICD-10-PCS; 2018-07-24)
PROC: 5A1D70Z Performance of Urinary Filtration, Intermittent, Less than 6 Hours Per Day (ICD-10-PCS; 2018-07-25)
DX: A41.9 Sepsis, unspecified organism (principal); I50.23 Acute on chronic systolic (congestive) heart failure; M72.6 Necrotizing fasciitis; R65.21 Severe sepsis with septic shock; I13.0 Hypertensive heart and chronic kidney disease with heart failure and stage 1 through stage 4 chronic kidney disease, or unspecified chronic kidney disease; L03.115 Cellulitis of right lower limb; N17.9 Acute kidney failure, unspecified; E11.52 Type 2 diabetes mellitus with diabetic peripheral angiopathy with gangrene; L02.415 Cutaneous abscess of right lower limb; D62 Acute posthemorrhagic anemia; L97.419 Non-pressure chronic ulcer of right heel and midfoot with unspecified severity; R18.8 Other ascites; M00.861 Arthritis due to other bacteria, right knee; I11.0 Hypertensive heart disease with heart failure; E11.65 Type 2 diabetes mellitus with hyperglycemia; I25.10 Atherosclerotic heart disease of native coronary artery without angina pectoris; E11.22 Type 2 diabetes mellitus with diabetic chronic kidney disease; N18.3 Chronic kidney disease, stage 3 (moderate); E87.5 Hyperkalemia; E11.621 Type 2 diabetes mellitus with foot ulcer; E11.69 Type 2 diabetes mellitus with other specified complication; E78.5 Hyperlipidemia, unspecified; F03.90 Unspecified dementia, unspecified severity, without behavioral disturbance, psychotic disturbance, mood disturbance, and anxiety; M60.851 Other myositis, right thigh; B96.20 Unspecified Escherichia coli [E. coli] as the cause of diseases classified elsewhere; B95.5 Unspecified streptococcus as the cause of diseases classified elsewhere; M17.10 Unilateral primary osteoarthritis, unspecified knee; M60.9 Myositis, unspecified; N18.9 Chronic kidney disease, unspecified; Z79.4 Long term (current) use of insulin; Z82.49 Family history of ischemic heart disease and other diseases of the circulatory system; Z87.891 Personal history of nicotine dependence; Z95.1 Presence of aortocoronary bypass graft; Z88.8 Allergy status to other drugs, medicaments and biological substances; Z79.82 Long term (current) use of aspirin; Z79.899 Other long term (current) drug therapy
CPT/HCPCS: 36415; 36556; 36558; 36569; 36600; 71045; 72192; 73700; 74018; 76775; 76937; 77001; 80053; 80061; 80069; 80202; 81001; 82330; 82550; 82570; 82728; 82803; 82810; 82948; 83036; 83540; 83550; 83605; 83735; 83880; 84100; 84134; 84145; 84156; 84300; 84484; 85018; 85025; 85027; 85610; 85730; 86140; 86885; 86900; 86901; 86920; 87040; 87070; 87075; 87077; 87102; 87186; 87207; 87340; 88307; 92508; 92616; 93005; 93306; 97110; 97161; 97530; 99152; 99153; 99285; A6222; A6446; A6449; A7000; A9270; C1750; C1751; C1894; G0257; G0378; J0885; J1170; J1250; J1644; J1720; J1815; J1940; J2001; J2250; J2405; J2543; J2710; J3010; J3370; J3475; J3490; J7030; J7120; P9016; P9045

== ENCOUNTER 2018-11-25 10:11 | Emergency (ER) | payer MEDICARE, MEDICAID ==
[~2018-11-25] VITALS: Ht 177.8 cm; Wt 185.0 kg
[~2018-11-25 10:11] MED LIST changes: +ASPI-1265 PO; -ASPI81TA30 PO; +CARV-50 PO; +INSU100V9 SQ; -LANTUS SUBCUT; +LISI-600 PO; -LISI10TA4 PO; -POTA20PA40; +POTA20TA19 PO; +SPIR25TA5 PO
--- NOTE | 2018-11-25 11:12 | NUR ---
Sunitha roc in EDM - 11/25/18 at 1120 by RAGHAVENDRA ATTEMPTED TO OBTAIN URINE SAMPLE FROM PT. PT WAS UNABLE TO VOID AFTER 10 MINUTES OF ATTEMPTING. HE REPORTS BEING A CHRONIC DIALYSIS PT WITH VERY LITTLE URINE PRODUCTION.
--- NOTE | 2018-11-25 11:21 | NUR ---
ATTEMPTED TO OBTAIN URINE SAMPLE FROM PT. PT WAS UNABLE TO VOID AFTER 10 MINUTES OF ATTEMPTING. HE REPORTS BEING A CHRONIC DIALYSIS PT WITH VERY LITTLE URINE PRODUCTION.
[2018-11-25 11:55] LABS: CLARITY,URINE CLEAR (Clear); COLOR,URINE YELLOW (Yellow); GLUCOSE, URINE 250 mg/dl (Neg); KETONES,URINE NEGATIVE (Neg); LEUKOCYTE ESTERASE ,URINE SMALL (Neg); NITRITES, URINE NEGATIVE (Neg); OCCULT BLOOD,URINE SMALL (Neg); PROTEIN,URINE 100 mg/dl (Neg); UROBILINOGEN,URINE 0.2 E.U/dL (0.2-1.0)
[2018-11-25 12:00] LABS: UA COLLECTION TYPE URINAL
[2018-11-25 12:02] LABS: HYALINE CASTS 0-3 /LPF (NEGATIVE); MUCUS STRANDS FEW /LPF (Neg); RENAL CELLS, URINE FEW /HPF; SQUAMOUS EPITHELIAL CELL,UR MODERATE /LPF (FEW); TRANSITIONAL EPI CELLS,URINE FEW /HPF
[2018-11-25 12:03] LABS: BACTERIA,URINE FEW /HPF (Neg)
[2018-11-25] MEDS ORDERED: CLOT12CR TOP (13:28)
[2018-11-25] MEDS ORDERED: BACI28.33 TOP (13:28)
[2018-11-25] MEDS ORDERED: DOXYCYCLINE 100MG CAPSULE PO STA (13:59)
[2018-11-25] MEDS ORDERED: DOXY100C43 PO (14:02)
[2018-11-25 14:10] VITALS: BP 149/92
== END 2018-11-25 14:12 | disposition home or self-care (01) ==
LOC: ER 10:11
DX: S30.812A Abrasion of penis, initial encounter (principal); N39.0 Urinary tract infection, site not specified; I25.10 Atherosclerotic heart disease of native coronary artery without angina pectoris; I12.0 Hypertensive chronic kidney disease with stage 5 chronic kidney disease or end stage renal disease; E11.22 Type 2 diabetes mellitus with diabetic chronic kidney disease; N18.6 End stage renal disease; Z99.2 Dependence on renal dialysis; Z98.890 Other specified postprocedural states; Z88.8 Allergy status to other drugs, medicaments and biological substances; Z88.1 Allergy status to other antibiotic agents; Z79.82 Long term (current) use of aspirin; Z79.4 Long term (current) use of insulin; Z79.899 Other long term (current) drug therapy; X58.XXXA Exposure to other specified factors, initial encounter; Y93.89 Activity, other specified; Y92.89 Other specified places as the place of occurrence of the external cause; Y99.8 Other external cause status
CPT/HCPCS: 81001; 87077; 87088; 87186; 99285

== ENCOUNTER 2018-12-11 05:15 | Emergency (ER) | payer MEDICARE, MEDICAID ==
[~2018-12-11] VITALS: Ht 177.8 cm; Wt 85.5 kg
[~2018-12-11 05:15] MED LIST changes: +BACI28.33 TOP; +CLOT12CR TOP; +DOXY100C43 PO
--- NOTE | 2018-12-11 05:58 | NUR ---
Patient is laying on gurney moaning in pain 12/27, says it is penile in nature and radiates to groin and hips. Per Patricia aviles to give [place] .
[2018-12-11] MEDS ORDERED: HYDROcodone/acetaminophen 5mg/325mg tablet PO ONE (06:00)
--- NOTE | 2018-12-11 06:45 | NUR ---
PT STATES HIS PAIN IS BETTER AFTER PAIN MED 07/27
[2018-12-11 06:55] VITALS: BP 103/78
--- NOTE | 2018-12-11 07:28 | NUR ---
PROVIDER REQUEST UROLOGY CART. TECH PLACES IT OUTSIDE ROOM.
[2018-12-11] MEDS ORDERED: SULF1TAB49 PO (08:10)
[2018-12-11] MEDS ORDERED: HYDR-3965 PO (08:10)
== END 2018-12-11 08:40 | disposition home or self-care (01) ==
LOC: ER 05:16
DX: L94.2 Calcinosis cutis (principal); I25.10 Atherosclerotic heart disease of native coronary artery without angina pectoris; I12.0 Hypertensive chronic kidney disease with stage 5 chronic kidney disease or end stage renal disease; E11.22 Type 2 diabetes mellitus with diabetic chronic kidney disease; N18.6 End stage renal disease; Z99.2 Dependence on renal dialysis; Z98.890 Other specified postprocedural states; Z88.8 Allergy status to other drugs, medicaments and biological substances; Z88.1 Allergy status to other antibiotic agents; Z79.82 Long term (current) use of aspirin; Z79.4 Long term (current) use of insulin; Z79.899 Other long term (current) drug therapy
CPT/HCPCS: 99284